=== PATIENT | female | born 1960 | race Caucasian/White ===

== ENCOUNTER 2019-01-23 10:25 | Inpatient (IN) | payer OTHER ==
--- NOTE | 2019-01-22 16:51 | R.PREADM ---
SCREENING DATE AND TIME 01/22/2019 14:19 (CAMPAIGN ASSOCIATE) ANTICIPATED REHAB ADMISSION DATE 01/24/2019 REFERRING FACILITY [facility] REFERRAL DATE AND TIME 01/22/2019 14:19 (CAMPAIGN ASSOCIATE) Previous Rehabilitation(s): No. ACUTE PACKING SUPERVISOR/DC CLOCKSMITH Gaston malik REFERRING PHYSICIAN Jorge L Benedict REHAB FACILITY [facility] CLINICAL LIAISON Jannet Roberson PHYSICIAN REVIEWER Dr. Garry Hodge M.D. [facility]# [id number] [id number] NAME HONG PICKENS ADDRESS [address] [place] [address] [facility] [address] DATE OF 1960 AGE 58 SSN# [id number] GENDER female MARITAL STATUS RACE white ADMIT FROM 02 - [facility] PRE-HOSPITAL LIVING SETTING 01 - Home (private home/apt. board/care, assisted living, half-way, transitional living) HOME TYPE AND DETAILS Type of home: single family house # of steps to enter the residence: 0 # of steps within the residence: 0 # of levels in the residence: 1 PRE-HOSPITAL LIVING WITH Family/Relatives FAMILY SUPPORT Yes PRIMARY FAMILY CONTACT NAME Colin Pickens PRIMARY FAMILY CONTACT PHONE PHONE PRIMARY FAMILY CONTACT ON ADM.? no IS PRIMARY FAMILY CONTACT AUTH. REP.? no 1ST EMERGENCY CONTACT Colin Pickens 1ST CONTACT PHONE PHONE 1ST CONTACT ON ADM. no IS 1ST CONTACT AUTH. REP.? no PHONE 2ND CONTACT ON ADM.? 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 No ANOTHER REPUBLICAN RESPONSIBLE? No PRIMARY REHAB/ACUTE DIAGNOSIS: lumbar radiculopathy ONSET DATE 01/19/2019 REHAB IMPAIRMENT CATEGORY (ASHISH): 05 Nontraumatic spinal cord injury (NTSCI) MEETS 60% rule PRIMARY DIAGNOSIS-RELATED SURGERIES: extreme lateral interbody fusion L2-L5, posterior lumbar laminectomy w/instrumentation w/pedicle scre ws L2-L5 w/SSEP, MEP, EMG monitoring w/ DR Parrish COMORBID REHAB/ACUTE DIAGNOSES: - Non-Tiered Fibromyalgia (M79.7) - N/A osteoporosis psoriatic arthritis sjogren's syndrome INTERVENTIONS: - Osteoporosis Medications Safety RISK FOR COMPLICATIONS: - Osteoporosis Falls Fractures (pathological) SUMMARY OF ACUTE HOSPITALIZATION: Pt. is a 58 yo Right-handed white female. On 01/19/2019 she was admitted to [facility] with diagnosis lumbar radiculopathy. Her impairment category is Spinal Cord Dysfunction 04 - Other Non-traumatic Spinal Cord Dysfunction (04.130). Pre-morbidly, Pt. was independent/mod-I in Locomotion, Endurance, Self-Care, Balance, Transfers Contr ol, Safety Awareness, Social Cognition, Ambulation, Communication, and Safety Awareness and Self-Care ; and she had good Sphincter Control. Currently, she has deficits of Locomotion, Balance, Safety Awareness, Ambulation, and pain limiting f unction. Pt. is now referred to [facility] for acute in-patient rehabilitation in order to maximize patient's functional independence in activities of daily living, strength, ROM, and mobi lity. Patient has realistic goal of being discharged at assistance level 6-Julia to reside at Home with Fam diana/Relatives. PAST MEDICAL HISTORY Fibromyalgia (M79.7) osteoporosis psoriatic arthritis sjogren's syndrome MEDICATION ALLERGIES: No Known Drug Allergies (NKDA) ENVIRONMENTAL ALLERGIES: - Substance Allergies None Known - Other Allergies None Known CODE STATUS: Full code WEIGHT/HEIGHT/BMI: WEIGHT 156 lbs HEIGHT 5' 2" BMI 28.5 DIET: - Diet Type Regular - Diet - Solid Texture Regular - Diet - Liquid Texture Regular - Tube Feed N/A SKIN DIAGRAM: Incision on Back; extent - small; stage - NS(Not Stageable). Treatment - Per Physician's Orders. REVIEW OF SYSTEMS: - Gen Alert and awake Lying in bed No apparent distress Oriented to: person, time, and place - CVS RRR VITAL SIGNS Temperature: 97.3 F SBP/DBP: 117/75 Pulse: 111 Resp: 20 Vital signs stable, afebrile MEDICATIONS/TREATMENT: Other- See attached MAR (Medication Administration Record). CURRENT SPHINCTER CONTROL: Pre-hospital bladder status: continent # of bladder accidents in the last 7 days prior to screenin Pre-hospital bowel status: continent # of bowel accidents in the last 7 days prior to screenin Last Bowel Movement Date: 01/22/2019 CURRENT LOCOMOTION STATUS: distance traveled in wheelchair 0 feet distance walked 20 feet DETAILED CURRENT FUNCTIONAL STATUS: - Bladder accident frequency: Ind - No accidents in the past 7 days - Bowel accident frequency: Ind - No accidents in the past 7 days - Walking score based on distance walked: 1(<=50ft) - Wheelchair score based on distance traveled: 1(<=50ft) QI SCORES: - Self-Care A. Eating 06-Independent B. Oral hygiene 05-Setup or clean-up assistance C. Toileting hygiene 05-Setup or clean-up assistance E. Shower/bathe self 88-Not attempted due to medical condition or safety concerns F. Upper body dressing 04-Supervision or touching assistance G. Lower body dressing 03-Partial/moderate assistance H. Putting on/taking off footwear 88-Not attempted due to medical condition or safety concerns - Mobility A. Roll left and right 06-Independent B. Sit to lying 04-Supervision or touching assistance C. Lying to sitting on side of bed 05-Setup or clean-up assistance D. Sit to stand 04-Supervision or touching assistance E. Chair/lvy-fl-xvjjl transfer 04-Supervision or touching assistance F. Toilet transfer 04-Supervision or touching assistance G. Car transfer 88-Not attempted due to medical condition or safety concerns I. Walk 10 feet 04-Supervision or touching assistance J. Walk 50 feet with two turns 88-Not attempted due to medical condition or safety concerns K. Walk 150 feet 88-Not attempted due to medical condition or safety concerns L. Walking 10 feet on uneven surfaces 88-Not attempted due to medical condition or safety concerns M. 1 step (curb) 88-Not attempted due to medical condition or safety concerns N. 4 steps 88-Not attempted due to medical condition or safety concerns O. 12 steps 88-Not attempted due to medical condition or safety concerns P. Picking up object 88-Not attempted due to medical condition or safety concerns R. Wheel 50 feet with two turns 88-Not attempted due to medical condition or safety concerns S. Wheel 150 feet 88-Not attempted due to medical condition or safety concerns - Bladder and Bowel Bladder continence 4-Always incontinent Bowel continence 3-Always incontinent - Endurance Fair - Balance Fair - Safety Awareness Fair CURRENT [facility]. DEFICITS: Endurance, Balance, Safety Awareness, Self-Care, and Mobility CURRENT / PREVIOUS ASSISTIVE DEVICES: 3-in-1 Commode BSC Hospital Bed Raised Toilet Rolling Walker Shower Chair Wheelchair HISTORY OF FALLS. HAS THE PATIENT HAD TWO OR MORE FALLS IN THE PAST YEAR OR ANY FALL WITH INJURY IN T HE PAST YEAR?: No PRIOR SURGERY. DID THE PATIENT HAVE MAJOR SURGERY DURING THE 100 DAYS PRIOR TO ADMISSION?: No THERAPY NOTES FROM ACUTE CARE: Attached. SPECIAL NEEDS: - Safety Concerns Skin breakdown precautions needed due to skin breakdown risk PATIENT NEEDS ACTIVE AND ONGOING THERAPEUTIC INTERVENTION OF MULTIPLE THERAPY DISCIPLINES, INCLUDING: - Orthotics/Prosthetics Orthotic Evaluation. Splinting/Casting. - Dietary and Nutrition Adequate Nutrition. Nutritional Education. Nutritional Supplements. PATIENT NEEDS CLOSE MEDICAL SUPERVISION BY A REHABILITATION PHYSICIAN FOR: Coordination of Treatment Team Medical and Co-Morbidity Management Wound Care PATIENT REQUIRES 24X7 REHAB NURSING FOR MEDICAL AND FUNCTIONAL MGT. OF THE FOLLOWING DEFICITS: Disease Management Medication Management Patient/Family Education Providing Safe Environment Skin Integrity PATIENT REQUIRES INTENSIVE, COORDINATED INTERDISCIPLINARY APPROACH TO REHAB: Arranging Home Equipment/Services Discharge Planning Family Intervention/Training Agile Qa Tester/Case Management PATIENT REHAB POTENTIAL: Candi PICKENS is able and expected to receive 3 hours of individualized therapy daily on at least 5 o f every 7 days Candi PICKENS's prognosis for significant practical improvement within a reasonable period of time ap pears Good Expected level of measurable improvement will be of a practical value to Candi PICKENS's functional c apacity or adaptations to impairments Has a viable Discharge Plan Medically appropriate; condition is sufficiently stable to participate in intensive rehab program DISCHARGE PLAN: - Estimated Length of Stay (days) 16. - Consensus on plan Discharge plan has been discussed with primary caregiver. Patient/Family is in agreement with the darius n. Primary caregiver is in agreement with the plan. - Patient/Family Goals Return home with assistance. - Planned Living Setting Upon Discharge Home, to live with Family/Relatives. RECOMMENDED CARE LEVEL: IRF RECOMMENDATION DETAILS: Recommended Admission to Comprehensive Rehabilitation Program to Increase Functional Forsan SCREENER'S COMPLETENESS CONFIRMATION: - Screening Confirmation The patient data collection on this preadmission screening form is finished PHYSICIANS REVIEW AND ADMISSION DETERMINATION Admit - Based on my review of the Pre-Admission Screening results, in my medical judgment and experie nce, I concur with the findings and recommend admission to [facility], as this patient requires an IRF level of care. SIGNATURE PANEL: Clinical Liaison - [electronically] signed by Alisa Bishop on 01/22/2019 at 14:57 (CAMPAIGN ASSOCIATE) Clinical Liaison - [electronically] signed by Jannet Roberson on 01/22/2019 at 15:29 (CAMPAIGN ASSOCIATE) Physician Reviewer - [electronically] signed by Dr. Garry Hodge M.D. on 01/22/2019 at 16:49 (CAMPAIGN ASSOCIATE )
--- OUTSIDE RECORDS SUMMARY | 2019-01-23 17:36 | XMS REPORT ---
:1960 [facility] [address] [place] [address] Dr. Braxton[address] [place] [id number] Care Team Providers Name Role Phone Unavailable Unavailable Unavailable Problems This patient has no known problems. Allergies, Adverse Reactions, Alerts This patient has no known allergies or adverse reactions. Medications This patient has no known medications.
--- OUTSIDE RECORDS SUMMARY | 2019-01-23 17:37 | XMS REPORT | Summary of Care ---
:1960 Author Organization [facility] Address [address] [place] [id number] Care Team Providers Name Role Phone Yue Haider Primary Care Provider Reason for Referral Radiology Services (Routine) Status Reason Specialty Diagnoses / Referred By Referred To Procedures Contact Contact New Request Diagnostic Diagnoses Left hand pain Reagan Norton Radiology Procedures XR HAND <3 VW CIERRA Oconnor MD [address] [place] [address] [place] [address] Reason for Visit Reason Comments Hand Pain Left hand pain Encounter Details Date Type Department Care Team Description 10/17/2018 Office Visit [facility] Orthopaedic Reagan Norton Left hand pain Surgery- Rhea Oconnor MD (Primary Dx) [address] [facility], [address] [place] [address] [place] [phone] Allergies Active Allergy Reactions Severity Noted Date Comments Morphine Rash Low 01/09/2011 Morphine Sulfate Rash 01/09/2011 documented as of this encounter (statuses as of 10/17/2018) Medications Medication Sig Dispensed Refills Start Date End Date Status azaTHIOprine (IMURAN) 50 0 12/23/2014 Active mg tablet baclofen (LIORESAL) 10 mg 0 01/03/2015 Active tablet furosemide (LASIX) 20 mg 0 11/01/2014 Active tablet gabapentin (NEURONTIN) 0 01/03/2015 Active 300 mg capsule hydroxychloroquine 0 12/25/2014 Active (PLAQUENIL) 200 mg tablet predniSONE (DELTASONE) 5 0 11/13/2014 Active mg tablet cevimeline (EVOXAC) 30 mg Take 30 mg by 0 09/29/2015 Active capsule mouth. DULoxetine (CYMBALTA) 60 0 08/25/2015 Active mg capsule naproxen sodium (ALEVE) Take by mouth. 0 Active 220 mg capsule CHOLECALCIFEROL, VITAMIN Take by mouth. 0 Active D3, (D-3-5 ORAL) GINKGO BILOBA ORAL Take by mouth. 0 Active GLUC PITTS/CHONDRO PITTS A/VIT Take by mouth. 0 Active C/MN (GLUCOSAMINE CHONDROITIN MAXSTR ORAL) clonazePAM 0.5 mg tablet Take 0.5 mg by 0 Active mouth 3 (three) times daily. modafinil 200 mg tablet Take 200 mg by 0 Active mouth. APPLE CIDER VINEGAR ORAL Take by mouth. 0 Active MULTIVITAMIN ORAL Take by mouth. 0 Active OMEGA-3 FATTY ACIDS/FISH Take by mouth. 0 Active OIL (OMEGA 3 FISH OIL ORAL) HYALURONATE SODIUM Take by mouth. 0 Active (HYALURONIC ACID, SODIUM, ORAL) buprenorphine Place under 0 Active HCl/naloxone HCl the tongue. (SUBOXONE SL) azathioprine (IMURAN Take by mouth. 0 Active ORAL) Diclofenac Sodium Apply the gel 100 g 1 07/03/2018 Active (VOLTAREN) 1 % (4 g) to the gelIndications: Posterior affected knee tibial tendon dysfunction 4 times daily. (PTTD) of both lower Do not apply extremities more than 16 g daily to any single joint of the lower extremities. Estradiol (VAGIFEM) 10 1 tablet q HS x 18 tablet 3 07/30/2018 Active mcg tablet 2 weeks, the twice weekly after that documented as of this encounter (statuses as of 10/17/2018) Active Problems Problem Noted Date Vaginal atrophy 10/04/2015 Menopausal vaginal dryness 10/04/2015 Dyspareunia 10/04/2015 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 Connective tissue disorder 01/07/2015 Fibromyalgia 01/07/2015 Shoulder pain 01/07/2015 documented as of this encounter (statuses as of 10/17/2018) Social History Tobacco Use Types Packs/Day Years Used Date Never Smoker Smokeless Tobacco: Never Used Alcohol Use Drinks/Week oz/Week Comments No 0 Standard drinks or equivalent 0.0 Sex Assigned at Date Recorded Not on file Job Start Date Occupation Industry Not on file Not on file Not on file Travel History Travel Start Travel End No recent travel history available. documented as of this encounter Last Filed Vital Signs Vital Sign Reading Time Taken Comments Blood Pressure 144/94 10/17/2018 10:23 AM CDT Pulse 112 10/17/2018 10:23 AM CDT Temperature - - Respiratory Rate 18 10/17/2018 10:23 AM CDT Oxygen Saturation - - Inhaled Oxygen Concentration - - Weight 69.9 kg (154 lb) 10/17/2018 10:23 AM CDT Height 157.5 cm (5' 2") 10/17/2018 10:23 AM CDT Body Mass Index 28.17 10/17/2018 10:23 AM CDT documented in this encounter Progress Notes Reagan Norton MD - 10/17/2018 10:15 AM CDT Kim Pickens is a 58 year old female Chief Complaint Patient presents with Hand Pain Left hand pain Vitals: 10/17/18 1023 BP: (!) 144/94 BP Location: Left arm Patient Position: Sitting BP CUFF SIZE: Adult Medium Pulse: 112 Resp: 18 Weight: 69.9 kg (154 lb) Height: 62" (157.5 cm) [address] Incident occurred: about 3 weeks ago Incident location: at home Injury mechanism: patient did not fall, patient states she put a lot of weight on her hand Pain location: left hand DME status: brace Radiology status: none All Vitals taken, allergies and all medications reviewed, fall risk assessed. Pain level 6/10. MARIA DOLORES CARDOSO MA 10/17/2018 10:27 AM Kim Pickens is a 58 year old female. Hand Pain The incident occurred more than 1 week ago. The incident occurred at home. Injury mechanism: lost balance when leaning down to sit on a couch. The pain is present in the left hand. The quality of the pain is described as aching. The pain is at a severity of 6/10. The pain is moderate. The pain has been intermittent since the incident. The symptoms are aggravated by movement and palpation. She has tried rest for the symptoms. The treatment provided mild relief. Allergies Kim is allergic to morphine sulfate and morphine. Medications Outpatient Medications Prior to Visit Medication Sig Dispense Refill Estradiol (VAGIFEM) 10 mcg tablet 1 tablet q HS x 2 weeks, the twice weekly after that 18 tablet3 Diclofenac Sodium (VOLTAREN) 1 % gel Apply the gel (4 g) to the affected knee 4 times daily. Donot apply more than 16 g daily to any single joint of the lower extremities. 100 g 1 azathioprine (IMURAN ORAL) Take by mouth. buprenorphine HCl/naloxone HCl (SUBOXONE SL) Place under the tongue. APPLE CIDER VINEGAR ORAL Take by mouth. clonazePAM 0.5 mg tablet Take 0.5 mg by mouth 3 (three) times daily. HYALURONATE SODIUM (HYALURONIC ACID, SODIUM, ORAL) Take by mouth. modafinil 200 mg tablet Take 200 mg by mouth. MULTIVITAMIN ORAL Take by mouth. OMEGA-3 FATTY ACIDS/FISH OIL (OMEGA 3 FISH OIL ORAL) Take by mouth. cevimeline (EVOXAC) 30 mg capsule Take 30 mg by mouth. CHOLECALCIFEROL, VITAMIN D3, (D-3-5 ORAL) Take by mouth. DULoxetine (CYMBALTA) 60 mg capsule GINKGO BILOBA ORAL Take by mouth. GLUC PITTS/CHONDRO PITTS A/VIT C/MN (GLUCOSAMINE CHONDROITIN MAXSTR ORAL) Take by mouth. naproxen sodium (ALEVE) 220 mg capsule Take by mouth. azaTHIOprine (IMURAN) 50 mg tablet baclofen (LIORESAL) 10 mg tablet furosemide (LASIX) 20 mg tablet gabapentin (NEURONTIN) 300 mg capsule hydroxychloroquine (PLAQUENIL) 200 mg tablet predniSONE (DELTASONE) 5 mg tablet No facility-administered medications prior to visit. Histories Past Medical History: Diagnosis Date Anxiety Autoimmune disorder Depression Fibromyalgia Multilevel degenerative disc disease Psoriatic arthritis RA (rheumatoid arthritis) Sjogren's disease Undifferentiated connective tissue disease 2013 Past Surgical History: Procedure Laterality Date ABDOMEN SURGERY PROC UNLISTED APPENDECTOMY SECTION CHOLECYSTECTOMY COLONOSCOPY JOINT SURGERY bilateral knee REMOVAL GALLBLADDER SPINE SURGERY Social History Socioeconomic History Marital status: Spouse name: Ricardo Number of children: 2 Years of education: 12 Highest education level: Not on file Occupational History Occupation: Disabled Social Needs Financial resource strain: Not on file Food insecurity: Worry: Not on file Inability: Not on file Transportation needs: Medical: Not on file Non-medical: Not on file Tobacco Use Smoking status: Never Smoker Smokeless tobacco: Never Used Substance and Sexual Activity Alcohol use: No Alcohol/week: 0.0 oz Drug use: No Sexual activity: Yes Partners: Male Comment: Vaginal Pain and discomfort Lifestyle Physical activity: Days per week: Not on file Minutes per session: Not on file Stress: Not on file Relationships Social connections: Talks on phone: Not on file Gets together: Not on file Attends jewish service: Not on file Active member of club or organization: Not on file Attends meetings of clubs or organizations: Not on file Relationship status: Not on file Intimate partner violence: Fear of current or ex partner: Not on file Emotionally abused: Not on file Physically abused: Not on file Forced sexual activity: Not on file Other Topics Concern Service Not Asked Blood Transfusions Not Asked Caffeine Concern Not Asked Occupational Exposure Not Asked Hobby Hazards Not Asked Sleep Concern Not Asked Stress Concern Not Asked Weight Concern Not Asked Special Diet Not Asked Back Care Not Asked Exercise Not Asked Bike Helmet Not Asked Seat Belt Yes Self-Exams Yes Social History Narrative Denies domestic or physical violence within the home Roman Catholic Preference: Yarsani Family History Problem Relation Age of Onset Stroke Mother Heart Father Arthritis NoFHx Asthma NoFHx defects NoFHx Breast Cancer NoFHx Colon Cancer NoFHx Ovarian Cancer NoFHx Uterine Cancer NoFHx Cancer NoFHx Depression NoFHx Diabetes NoFHx Genetic NoFHx High cholesterol NoFHx Hypertension NoFHx Mental retardation NoFHx Neurological NoFHx Osteoporosis NoFHx Psychiatry NoFHx Other - see comments NoFHx Review of Systems Constitutional: Negative. HENT: Negative. Eyes: Negative. Respiratory: Negative. Breasts: Negative. Cardiovascular: Negative. Gastrointestinal: Negative. Genitourinary: Negative. Musculoskeletal: Positive for joint swelling. Skin: Negative. Neurological: Negative. Psychiatric/Behavioral: Negative. Endocrine: Endocrine negative Vital Signs BP (!) 144/94 (BP Location: Left arm, Patient Position: Sitting, BP CUFF SIZE: Adult Medium) | Pulse 112 | Resp 18 | Ht 62" (157.5 cm) | Wt 69.9 kg (154 lb ) | BMI 28.17 kg/m Physical Exam Musculoskeletal: Right hand: She exhibits decreased range of motion, tenderness and bony tenderness. Hands: General: Well-developed well-nourished oriented to person place and time HEENT normocephalic atraumatic atraumatic pupils equal round reactive to light extraocular muscles intact Cervical thoracic and lumbar spine without focal deficit normal kyphosis and lordosis Chest clear to auscultation and percussion Cardiovascular regular rate and rhythm without gallop rub or murmur soft without organomegaly Normal bowel sounds Neurologic: Focal myotome or dermatomal deficits Vascular: Intact symmetrical bilateral upper and lower extremities Skin without stasis varicosities or breakdown Extremities without cyanosis clubbing or edema Lymphatics no peripheral lymphedema Psych normal mood and affect. Neurovascular function is intact. To include brisk capillary refill warm pink skin active motor function and sensory function intact. Nursing note and vitals reviewed. Assessment/Plan Diagnosis left hand pain Plan: No fractures were noted. Given a thumb spica splint. documented in this encounter Plan of Treatment Date Type Specialty Care Team Description 07/06/2019 Office Visit Obstetrics & Gynecology Mary Jo Schwartz MD [address] [place] [address] [place] [address] [phone] Health Maintenance Due Date Last Done Comments HEPATITIS C (HCV) SCREEN 1960 DTaP,Tdap,and Td Vaccines (1 - 07/02/1979 Tdap) MAMMOGRAM 2000 COLONOSCOPY 2010 Zoster Recombinant Vaccine 2010 (SHINGRIX) (1 of 2) INFLUENZA VACCINE (#1) 2018 PAP SMEAR 06/18/2020 06/18/2017 PNEUMOCOCCAL 0-64 YEARS COMBINED Aged Out No longer eligible based on SERIES patient's age to complete this topic documented as of this encounter Results XR HAND <3 VW LEFT (10/17/2018 10:32 AM CDT) Specimen Narrative Performed At No fractures or dislocations PACS Performing Organization Address City/State/Zipcode Phone Number PACS documented in this encounter Visit Diagnoses Diagnosis Left hand pain - Primary Pain in limb documented in this encounter Insurance Payer Benefit Plan / Subscriber ID Effective Dates Phone Address Type Group MEDICARE MEDICARE PART xxxxxxxxxxx 2011-Sandra [phone] Medicare [id number] [place] [id number] documented as of this encounter
--- OUTSIDE RECORDS SUMMARY | 2019-01-23 17:37 | XMS REPORT | Summary of Care ---
:1960 Author Organization [facility] - [facility] Address [address] [place] [address] Care Team Providers Name Role Phone Vitaly Yue Primary Care Provider Encounter Details Date Type Department Care Team Description 09/30/2018 Orders Only [facility] Doctor Unassigned, [address] [facility] [place] [address] [address] [id number] Allergies Active Allergy Reactions Severity Noted Date Comments Morphine Rash 01/07/2015 Morphine Sulfate Rash 01/09/2011 documented as of this encounter (statuses as of 09/30/2018) Medications Medication Sig Dispensed Refills Start Date [...] as of this encounter (statuses as of 09/30/2018) Active Problems Problem Noted Date Vaginal atrophy 10/04/2015 Menopausal vaginal dryness 10/04/2015 Dyspareunia 10/04/2015 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 Connective tissue disorder 01/07/2015 Fibromyalgia 01/07/2015 Shoulder pain 01/07/2015 documented as of this encounter (statuses as of 09/30/2018) Social History Tobacco Use Types Packs/Day Years [...] of this encounter Last Filed Vital Signs Not on filedocumented in this encounter Plan of Treatment Date Type Specialty Care Team Description 09/30/2018 Cardiology Consultant Visit Clinical Medical 1, [facility] Lab Laboratory 07/06/2019 Office Visit Obstetrics & Gynecology Mary Jo Schwartz MD [address] [place] [address] [place] [address] [phone] Health Maintenance Due Date Last Done Comments HEPATITIS C (HCV) SCREEN 1960 DTaP,Tdap,and Td Vaccines (1 - 07/02/1979 Tdap) MAMMOGRAM 2000 COLONOSCOPY 2010 Zoster Recombinant Vaccine 2010 (SHINGRIX) (1 of 2) INFLUENZA VACCINE 10/19/2018 PAP SMEAR 06/18/2020 06/18/2017 PNEUMOCOCCAL 0-64 YEARS COMBINED Aged Out No longer eligible based on SERIES patient's age to complete this topic documented as of this encounter Procedures Procedure Name Priority Date/Time Associated Diagnosis Comments ASSIGNMENT OF BENEFITS Routine 09/30/2018 10:10 AM CDT documented in this encounter Results Not on filedocumented in this encounter Insurance Payer Benefit Plan / Subscriber ID Effective Dates Phone Address Type Group MEDICARE MEDICARE PART xxxxxxxxxxx 2011-Sandra [phone] [address] Medicare A & B t 2 [id number] [place] [phone] documented as of this encounter
--- OUTSIDE RECORDS SUMMARY | 2019-01-23 17:37 | XMS REPORT | Summary of Care ---
:1960 Author Organization [facility] Address [address] [place] [address] Care Team Providers Name Role Phone Yue Haider Primary Care Provider Reason for Visit Radiology Services (Routine) Status Reason Specialty Diagnoses / Referred By Referred To Procedures Contact Contact New Request Diagnostic Diagnoses Left hand pain Reagan Norton Radiology Procedures XR HAND <3 VW LEFT MD Elvin [address] [place] [address] Encounter Details Date Type Department Care Team Description 10/17/2018 Hospital Encounter [facility] - Radiology [address] [place] [address] [place] [phone] [address] Allergies Active Allergy Reactions Severity Noted Date Comments Morphine Rash Low 01/09/2011 Morphine Sulfate Rash 01/09/2011 documented as of this encounter (statuses as of 10/18/2018) Medications Medication Sig Dispensed Refills Start Date [...] as of this encounter (statuses as of 10/18/2018) Active Problems Problem Noted Date Vaginal atrophy 10/04/2015 Menopausal vaginal dryness 10/04/2015 Dyspareunia 10/04/2015 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 [facility] [place] [address] [phone] Health Maintenance Due Date Last Done Comments [...] Procedure Name Priority Date/Time Associated Diagnosis Comments XR HAND <3 VW LEFT Routine 10/17/2018 10:32 AM Left hand pain Results for this CDT procedure are in the results section. documented in this encounter Results XR HAND <3 VW LEFT (10/17/2018 10:32 AM CDT) Specimen Narrative Performed At No fractures or dislocations PACS Performing Organization Address City/State/Zipnjde Phone Number PACS documented in this encounter Visit Diagnoses Diagnosis Left hand pain Pain in limb documented in this encounter Insurance Payer Benefit Plan / Subscriber ID Effective Dates Phone Address Type Group MEDICARE MEDICARE PART xxxxxxxxxxx 2011-Sandra [phone] [address] [facility] Medicare A & B t 2 [id number] [place] [id number] documented as of this encounter
--- OUTSIDE RECORDS SUMMARY | 2019-01-23 17:37 | XMS REPORT | Summary of Care ---
:1960 Author Organization [facility] Address [address] [place] [address] Care Team Providers Name Role Phone Yue Haider Primary Care Provider Reason for Visit Reason Comments LAB WORK Auth/Cert Status Reason Specialty Diagnoses / Referred By Referred To Procedures Contact Contact Clinical Medical Diagnoses Low back pain Low back pain [M54.5] [facility] Lab Laboratory Procedures CBC,PT/PTT,BLEEDING TIME [address] [place] [address] Encounter Details Date Type Department Care Team Description 09/30/2018 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 [address] [phone] Name Type Priority Associated Diagnoses Date/Time CBC WITH DIFF LAB Routine Preop testing 09/30/2018 10:35 AM CDT PROTHROMBIN TIME / INR LAB Routine Preop testing 09/30/2018 10:35 AM CDT aPTT LAB Routine Preop testing 09/30/2018 10:35 AM CDT ADC OR CLC ONLY - PLATELET LAB Routine Preop testing 09/30/2018 10:35 AM CDT FUNCTION TEST CBC WITH DIFFERENTIAL LAB Routine Preop testing 09/30/2018 10:35 AM CDT Health Maintenance Due Date Last Done Comments HEPATITIS C (HCV) SCREEN 1960 DTaP,Tdap,and Td Vaccines (1 - 07/02/1979 Tdap) MAMMOGRAM 2000 COLONOSCOPY 2010 Zoster Recombinant Vaccine 2010 (SHINGRIX) (1 of 2) INFLUENZA VACCINE 10/19/2018 PAP SMEAR 06/18/2020 06/18/2017 PNEUMOCOCCAL 0-64 YEARS COMBINED Aged Out No longer eligible based on SERIES patient's age to complete this topic documented as of this encounter Results Not on filedocumented in this encounter Visit Diagnoses Diagnosis Preop testing - Primary Preoperative examination, unspecified documented in this encounter Insurance Payer Benefit Plan / Subscriber ID Effective Dates Phone Address Type Group MEDICARE MEDICARE PART xxxxxxxxxxx 2011-Sandra [phone] [address] Medicare A & B t 2 [id number] [place] [phone] documented as of this encounter
--- OUTSIDE RECORDS SUMMARY | 2019-01-23 17:37 | XMS REPORT | Summary of Care ---
:1960 Author Organization [facility] - [facility] Address [address] [place] [address] Care Team Providers Name Role Phone Yue Haider Primary Care Provider Reason for Referral Radiology Services (Routine) Status Reason Specialty Diagnoses / Referred By Referred To Procedures Contact Contact New Request Diagnostic Diagnoses Left hand pain [facility] Radiology Procedures XR HAND <3 VW CIERRA Oconnor MD [address] [place] [address] [place] [address] Reason for Visit Reason Comments Hand Pain Left hand pain Encounter Details Date Type Department Care Team Description 10/17/2018 Office Visit [facility] Orthopaedic Reagan Norton Left hand pain Surgery- Rhea Oconnor MD (Primary Dx) [address] [facility], [address] [place] [address] [place], [place] [phone] [address] Allergies Active Allergy Reactions Severity Noted [...] kg (154 lb) Height: 62" (157.5 cm) [address] Incident occurred: about 3 weeks ago [...] file Gets together: Not on file Attends islam service: Not on file Active member of [...] domestic or physical violence within the home Alevism Preference: Roman Catholic Family History Problem Relation Age of Onset [...] Obstetrics & Gynecology Mary Jo Schwartz MD [address] [place] [address] [place] [address] [phone] Health Maintenance Due Date Last Done Comments [...] Type Group MEDICARE MEDICARE PART xxxxxxxxxxx 2011-Sandra [phone] Medicare A & B t 2 [id number] [place] [id number] documented as of this encounter
--- OUTSIDE RECORDS SUMMARY | 2019-01-23 17:38 | XMS REPORT | Summary of Care ---
:1960 Author Organization [facility] Address [address] [place] [address] Care Team Providers Name Role Phone Yue Haider Primary Care Provider Reason for Referral Radiology Services (Routine) Status Reason Specialty Diagnoses / Referred By Referred To Procedures Contact Contact New Request Diagnostic Diagnoses Left wrist pain Omar Armstrong, Radiology Procedures XR WRIST <3 VW LEFT PAC [address] [place] [address] [place] [address] Reason for Visit Reason Comments Follow-up Wrist Pain left wrist pain Encounter Details Date Type Department Care Team Description 11/06/2018 Office Visit [facility] Orthopaedic Omar Armstrong, Left wrist pain Surgery- [place] PAC (Primary Dx) [address], [address] [place] [address] [place] [address] [place], [place] [phone] Allergies Active Allergy Reactions Severity Noted Date Comments Morphine Rash Low 01/09/2011 Morphine Sulfate Rash 01/09/2011 documented as of this encounter (statuses as of 11/06/2018) Medications Medication Sig Dispensed Refills Start Date [...] as of this encounter (statuses as of 11/06/2018) Active Problems Problem Noted Date Vaginal atrophy 10/04/2015 Menopausal vaginal dryness 10/04/2015 Dyspareunia 10/04/2015 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 Connective tissue disorder 01/07/2015 Fibromyalgia 01/07/2015 Shoulder pain 01/07/2015 documented as of this encounter (statuses as of 11/06/2018) Social History Tobacco Use Types Packs/Day Years [...] Sign Reading Time Taken Comments Blood Pressure 126/73 11/06/2018 1:57 PM CDT Pulse 109 11/06/2018 1:57 PM CDT Temperature - - Respiratory Rate - - Oxygen Saturation - - Inhaled Oxygen Concentration - - Weight 69.9 kg (154 lb) 11/06/2018 1:57 PM CDT Height 157.5 cm (5' 2") 11/06/2018 1:57 PM CDT Body Mass Index 28.17 11/06/2018 1:57 PM CDT documented in this encounter Progress Notes Omar Armstrong, PAC - 11/06/2018 1:30 PM CDT Cc: Chief Complaint Patient presents with Follow-up Wrist Pain left wrist pain Patient here for left wrist pain - onset 2 weeks ago. Arrived wearing wrist brace. Previously seen for hand pain but couldn't figure out where the pain was located. Now it is in her wrist. Luisa Easonradhames11/06/2018 2:01 PM Kim Pickens is a 58 year old female. Follow-up on left wrist pain arrived wearing her brace Hand Pain The incident occurred more than [...] BILOBA ORAL Take by mouth. GLUC PITTS/CHONDRO PTITS A/VIT C/MN (GLUCOSAMINE CHONDROITIN MAXSTR ORAL) Take [...] file Gets together: Not on file Attends faith service: Not on file Active member of [...] domestic or physical violence within the home Cheondoism Preference: Confucianist Family History Problem Relation Age of Onset [...] Negative. Endocrine: Endocrine negative Vital Signs BP 126/73 | Pulse 109 | Ht 62" (157.5 cm) | Wt 69.9 kg (154 lb) | BMI 28.17 kg/m Physical Exam Musculoskeletal: Physical Exam Constitutional: oriented to person, place, and time. appears well-developed and well-nourished. HENT: Head: Normocephalic and atraumatic. Right Ear: External ear normal. Left Ear: External ear normal. Eyes: Conjunctivae are normal. Neck: Normal range of motion. No strabismus Neck supple. Cardiovascular: Normal rate and regular rhythm. Pulmonary/Chest: Normal respiratory rate equal chest rise and fall in no apparent distress Abdominal: Abdomen nondistended nontender Neurological: alert and oriented to person, place, and time. No asymmetry Skin: Skin is warm and dry. Psychiatric: normal mood and affect. behavior is normal. Judgment and thought content normal. Nursing note and vitals reviewed. She has snuffbox tenderness in her left wrist, her ulnar styloid is not specifically tender. Assessment/Plan 1. Left wrist pain XR WRIST <3 VW LEFT She has snuffbox tenderness there is no visible fracture on the scaphoid but she should remain in her thumb spica splint for another month we can reexamine then documented in this encounter Plan of Treatment Date Type Specialty Care Team Description 07/06/2019 Office Visit Obstetrics & Gynecology Mary Jo Schwartz MD [address] [place] [address] [place] [address] [phone] Health Maintenance Due Date Last Done Comments [...] documented as of this encounter Results XR WRIST <3 VW LEFT (11/06/2018 1:58 PM CDT) Specimen Narrative Performed At There is a ulnar styloid fracture PACS Performing Organization Address City/State/Zipcode Phone Number PACS documented in this encounter Visit Diagnoses Diagnosis Left wrist pain - Primary Pain in joint, forearm documented in this encounter Insurance Payer Benefit Plan / Subscriber ID Effective Dates Phone Address Type Group MEDICARE MEDICARE PART xxxxxxxxxxx 2011-Sandra [phone] [address] Medicare A & B t 2 [id number] [place] [id number] documented as of this encounter
--- OUTSIDE RECORDS SUMMARY | 2019-01-23 17:38 | XMS REPORT | Summary of Care ---
:1960 Author Organization [facility] Address [address] [place] [address] Care Team Providers Name Role Phone Yue Haider Primary Care Provider Reason for Referral MRI/CAT Scan (Routine) Status Reason Specialty Diagnoses / Referred By Referred To Procedures Contact Contact Closed Diagnostic Diagnoses History of fusion of cervical spine Jak, Jorge L Radiology Procedures CT LUMBAR SPINE WO CONTRAST [address] [place] [place] [address] MRI/CAT Scan (Routine) Status Reason Specialty Diagnoses / Referred By Referred To Procedures Contact Contact Closed Diagnostic Diagnoses History of fusion of cervical spine Jak, Jorge L Radiology Procedures CT LUMBAR SPINE WO CONTRAST [address] [place] [address] Reason for Visit MRI/CAT Scan (Routine) Status Reason Specialty Diagnoses / Referred By Referred To Procedures Contact Contact Closed Diagnostic Diagnoses History of fusion of cervical spine Jak, Jorge L Radiology Procedures CT LUMBAR SPINE WO CONTRAST [address] [place] [address] Encounter Details Date Type Department Care Team Description 10/30/2018 Hospital Encounter [facility] Radiology Arrived [place] Computed [address] [facility] Tom[place] [address] [address] [facility] [place] [phone] Allergies Active Allergy Reactions Severity Noted Date Comments Morphine Rash Low 01/09/2011 Morphine Sulfate Rash 01/09/2011 documented as of this encounter (statuses as of 10/31/2018) Medications Medication Sig Dispensed Refills Start Date [...] as of this encounter (statuses as of 10/31/2018) Active Problems Problem Noted Date Vaginal atrophy 10/04/2015 Menopausal vaginal dryness 10/04/2015 Dyspareunia 10/04/2015 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 [address] [phone] Health Maintenance Due Date Last Done Comments [...] Procedure Name Priority Date/Time Associated Diagnosis Comments CT LUMBAR SPINE WO Routine 10/30/2018 3:02 PM History of fusion of Results for this CONTRAST CDT cervical spine procedure are in the results section. documented in this encounter Results CT LUMBAR SPINE WO CONTRAST (10/30/2018 3:02 PM CDT) Specimen Narrative Performed At HISTORY: Lumbar spine fusion, follow-up. PACS/VR/DOSE TECHNIQUE: 64-mutidetector Spiral CT lumbar spine was obtained the patient on the back. Subsequently multiple sagittal and coronal reformations were obtained. FINDINGS: Five lumbar vertebrae assumed and the levels are accordingly labeled. No compression fracture or aggressive bone lesions. No prior lumbar spine study is available for comparison. Incidental note of 2 cm size lesion in the left adrenal gland with fatty tissue consistent with benign nonfunctioning adenoma. T12-L1: Unremarkable. L1-L2: Minimal annular bulge. Bilateral facet arthritis with calcified ligamentum flavum minimally encroaching into the right side of the spinal canal. L2-L3: Old fracture of L3 which has lost more than 50% of its height with retropulsion of posterior superior fracture margin into the spinal canal causing spinal stenosis with moderate thecal sac compression. Grade 1 retrolisthesis of L3 over L2 noted. Severe disc degeneration with severe narrowing of the disc space, vacuum phenomenon in the disc material, [id number] contact with endplate sclerosis noted. Additional vertical fracture noted through the right upper portion of L2 adjacent to the pedicle base and oblique fractures seen extending from left pedicle toward the transverse process. Slightly fracture noted in the left transverse process of L2. Thickened and partially calcified ligamentum flavum and bilateral facet arthritis noted causing additional encroachment into the spinal canal. Foraminal encroachment also noted on both sides by partially calcified prominent bulging disc and facet disease. L3-L4: Grade 1 spondylolisthesis of L3 over L4, disc degeneration with narrowing of the disc space by more than 90%, bone on bone contact, endplate sclerosis, vacuum phenomenon in the disc material, spinal stenosis with moderate thecal sac compression. Bilateral foraminal stenosis also noted. Bilateral facet arthritis noted with slightly thickened ligaments causing additional spinal canal encroachment. L4-L5: Disc degeneration with narrowing of the disc space by more than 80%, endplate sclerosis, endplate cystic changes in the upper L5, vacuum phenomena and in the disc material, diffuse bulging of the disc and mild facet arthritis is noted. Mild thecal sac compression and left foraminal stenosis noted. L5-S1: Disc space is slightly narrowed, minimal retrolisthesis of L5 over S1 noted with prominent bulging of the disc touching both nerve roots, left more than right. Small osteophytes/bulging disc encroaching into the left neural foramen without significant foraminal narrowing. CONCLUSIONS: 1. Mid lumbar levoscoliosis/kyphosis secondary to old fracture of L3 with loss of more than 50% of the height with grade 1 retrolisthesis of L3 over L2, grade 1 spondylolisthesis of L3 over L4. Spinal stenosis noted at both L2-L3 and L3-L4 due to retropulsion of posterior upper margin of L3 and L4 into spinal canal along with prominent/partially calcified bulging disc and thickened ligamentum flavum secondary to facet arthritis. Additional fractures seen involving the right posterior upper L2 closed to the pedicle, oblique fracture standing through the pedicle into left transverse process and slightly fracture in the left transverse processes of L2. 2. Moderate to severe degenerative disc disease at L2-L3, L3-L4, L4-L5. Procedure Note [facility], Radiant Results Inft User - 10/30/2018 3:32 PM CDT HISTORY: Lumbar spine fusion, follow-up. TECHNIQUE: 64-mutidetector Spiral CT lumbar spine was obtained the patient on the back. Subsequently multiple sagittal and coronal reformations were obtained. FINDINGS: Five lumbar vertebrae assumed and the levels are accordingly labeled. No compression fracture or aggressive bone lesions. No prior lumbar spine study is available for comparison. Incidental note of 2 cm size lesion in the left adrenal gland with fatty tissue consistent with benign nonfunctioning adenoma. T12-L1: Unremarkable. L1-L2: Minimal annular bulge. Bilateral facet arthritis with calcified ligamentum flavum minimally encroaching into the right side of the spinal canal. L2-L3: Old fracture of L3 which has lost more than 50% of its height with retropulsion of posterior superior fracture margin into the spinal canal causing spinal stenosis with moderate thecal sac compression. Grade 1 retrolisthesis of L3 over L2 noted. Severe disc degeneration with severe narrowing of the disc space, vacuum phenomenon in the disc material, [id number]-[id number] contact with endplate sclerosis noted. Additional vertical fracture noted through the right upper portion of L2 adjacent to the pedicle base and oblique fractures seen extending from left pedicle toward the transverse process. Slightly fracture noted in the left transverse process of L2. Thickened and partially calcified ligamentum flavum and bilateral facet arthritis noted causing additional encroachment into the spinal canal. Foraminal encroachment also noted on both sides by partially calcified prominent bulging disc and facet disease. L3-L4: Grade 1 spondylolisthesis of L3 over L4, disc degeneration with narrowing of the disc space by more than 90%, bone on bone contact, endplate sclerosis, vacuum phenomenon in the disc material, spinal stenosis with moderate thecal sac compression. Bilateral foraminal stenosis also noted. Bilateral facet arthritis noted with slightly thickened ligaments causing additional spinal canal encroachment. L4-L5: Disc degeneration with narrowing of the disc space by more than 80%, endplate sclerosis, endplate cystic changes in the upper L5, vacuum phenomena and in the disc material, diffuse bulging of the disc and mild facet arthritis is noted. Mild thecal sac compression and left foraminal stenosis noted. L5-S1: Disc space is slightly narrowed, minimal retrolisthesis of L5 over S1 noted with prominent bulging of the disc touching both nerve roots, left more than right. Small osteophytes/bulging disc encroaching into the left neural foramen without significant foraminal narrowing. CONCLUSIONS: 1. Mid lumbar levoscoliosis/kyphosis secondary to old fracture of L3 with loss of more than 50% of the height with grade 1 retrolisthesis of L3 over L2, grade 1 spondylolisthesis of L3 over L4. Spinal stenosis noted at both L2-L3 and L3-L4 due to retropulsion of posterior upper margin of L3 and L4 into spinal canal along with prominent/partially calcified bulging disc and thickened ligamentum flavum secondary to facet arthritis. Additional fractures seen involving the right posterior upper L2 closed to the pedicle, oblique fracture standing through the pedicle into left transverse process and slightly fracture in the left transverse processes of L2. 2. Moderate to severe degenerative disc disease at L2-L3, L3-L4, L4-L5. Performing Organization Address City/State/Zipcode Phone Number PACS/VR/DOSE documented in this encounter Visit Diagnoses Diagnosis History of fusion of cervical spine Arthrodesis status documented in this encounter Insurance Payer Benefit Plan / Subscriber ID Effective Dates Phone Address Type Group MEDICARE MEDICARE PART xxxxxxxxxxx 2011-Sandra [phone] [address] [facility] Medicare A & B t 2 [id number] [place] [phone] documented as of this encounter
--- OUTSIDE RECORDS SUMMARY | 2019-01-23 17:38 | XMS REPORT | Summary of Care ---
:1960 Author Organization [address] [address] Care Team Providers Name Role Phone Yue Haider Primary Care Provider Reason for Visit (Routine) Status Reason Specialty Diagnoses / Procedures Referred By Contact Referred To Contact Closed Radiology Diagnoses sched w/pt//Jorge L Nowak [facility] X-Ray Procedures XR CERVICAL SPINE 2 VW XR CERVICAL SPINE 2 VW [address] GONZÁLES [place], [place] [phone] [place] [address] Encounter Details Date Type Department Care Team Description 10/30/2018 Hospital Encounter [facility] Radiology Arrived [facility] [address] [place] [address] [place] [address] [place] [address] Allergies Active Allergy Reactions Severity Noted Date [...] Obstetrics & Gynecology Mary Jo Schwartz MD [address] [place] [address] [place] [address] [phone] Health Maintenance Due Date Last Done Comments [...] Name Priority Date/Time Associated Diagnosis Comments XR LUMBAR SPINE 2 Routine 10/30/2018 3:31 PM Fusion of lumbar Results for this VW CDT spine procedure are in the results section. XR CERVICAL SPINE 2 Routine 10/30/2018 3:31 PM History of fusion of Results for this VW CDT cervical spine procedure are in the results section. documented in this encounter Results XR LUMBAR SPINE 2 VW (10/30/2018 3:31 PM CDT) Specimen Narrative Performed At HISTORY: Fusion of lumbar spine. PACS/VR/DOSE FINDINGS: AP and lateral views of the lumbar spines showed 5 lumbar vertebrae with mid lumbar levoscoliosis and kyphosis, severe old fracture of L3, severe degenerative disc disease at L2-L3, L3-L4, L4-L5. L5-S1 disc space is minimally narrowed without significant degenerative changes in the vertebral margins. T12-L1 and L1-L2 disc spaces are intact. Cholecystectomy clips in the right upper abdomen noted. Sacroiliac joints are normal. CONCLUSIONS: Old fracture of L3 and severe degenerative disc disease at L2 with L3, L4, L4/L5 with mid lumbar levoscoliosis and kyphosis. No aggressive bone lesions. Procedure Note [facility], [facility]iant Results Inft User - 10/30/2018 3:34 PM CDT HISTORY: Fusion of lumbar spine. FINDINGS: AP and lateral views of the lumbar spines showed 5 lumbar vertebrae with mid lumbar levoscoliosis and kyphosis, severe old fracture of L3, severe degenerative disc disease at L2-L3, L3-L4, L4-L5. L5-S1 disc space is minimally narrowed without significant degenerative changes in the vertebral margins. T12-L1 and L1-L2 disc spaces are intact. Cholecystectomy clips in the right upper abdomen noted. Sacroiliac joints are normal. CONCLUSIONS: Old fracture of L3 and severe degenerative disc disease at L2 with L3, L4, L4/L5 with mid lumbar levoscoliosis and kyphosis. No aggressive bone lesions. Performing Organization Address City/State/[employer] Phone Number PACS/VR/DOSE XR CERVICAL SPINE 2 VW (10/30/2018 3:31 PM CDT) Specimen Narrative Performed At HISTORY: Cervical fusion. PACS/VR/DOSE FINDINGS: One AP and 2 lateral views of cervical spine showed no acute compression fracture or dislocation. No aggressive bone lesions. Discectomy with anterior interbody fusion noted at C5-C6, C6-C7 and C7-T1 levels. Metallic plate and screws are in good position. Visualized upper lungs are clear. No cervical rib visualized. Calcification in the left side of the soft tissue in the neck noted, does not appear to be vascular type. CONCLUSIONS: 1. No acute fracture or dislocation. 2. S/P ACDF changes at C5-C6-C7-T1 levels. 3. Facet arthritis noted at C3-C4, C4-C5. No significant uncovertebral joint degenerative disease. Procedure Note [facility], [facility] Results Inft User - 10/30/2018 3:36 PM CDT HISTORY: Cervical fusion. FINDINGS: One AP and 2 lateral views of cervical spine showed no acute compression fracture or dislocation. No aggressive bone lesions. Discectomy with anterior interbody fusion noted at C5-C6, C6-C7 and C7-T1 levels. Metallic plate and screws are in good position. Visualized upper lungs are clear. No cervical rib visualized. Calcification in the left side of the soft tissue in the neck noted, does not appear to be vascular type. CONCLUSIONS: 1. No acute fracture or dislocation. 2. S/P ACDF changes at C5-C6-C7-T1 levels. 3. Facet arthritis noted at C3-C4, C4-C5. No significant uncovertebral joint degenerative disease. Performing Organization Address City/State/[employer] Phone Number PACS/VR/DOSE documented in this encounter Visit Diagnoses Diagnosis History of fusion of cervical spine Arthrodesis status Fusion of lumbar spine documented in this encounter Insurance Payer Benefit Plan / Subscriber ID Effective Dates Phone Address Type Group MEDICARE MEDICARE PART xxxxxxxxxxx 2011-Sandra [phone] [address] Medicare A & B t 2 [id number] [place] [id number] documented as of this encounter
--- OUTSIDE RECORDS SUMMARY | 2019-01-23 17:38 | XMS REPORT | Summary of Care ---
:1960 Author Organization [facility] Address [address] [place] [address] Care Team Providers Name Role Phone Yue Haider Primary Care Provider Reason for Visit Reason Comments Notification Encounter Details Date Type Department Care Team Description 10/22/2018 Telephone [facility] Surgical Omar Armstrong, PAC Notification Specialties - [address], [address] [place] [phone] Allergies Active Allergy Reactions Severity Noted Date Comments Morphine Rash Low 01/09/2011 Morphine Sulfate Rash 01/09/2011 documented as of this encounter (statuses as of 10/23/2018) Medications Medication Sig Dispensed Refills Start Date [...] as of this encounter (statuses as of 10/23/2018) Active Problems Problem Noted Date Vaginal atrophy 10/04/2015 Menopausal vaginal dryness 10/04/2015 Dyspareunia 10/04/2015 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 [address] [phone] Health Maintenance Due Date Last Done Comments [...] Type Group MEDICARE MEDICARE PART xxxxxxxxxxx 2011-Sandra [phone] [address] Medicare A & B t 2 [id number] [place] [id number] documented as of this encounter
--- OUTSIDE RECORDS SUMMARY | 2019-01-23 17:38 | XMS REPORT | Summary of Care ---
:1960 Author Organization [facility] Address [address] [place] [address] Care Team Providers Name Role Phone Yue Haider Primary Care Provider Reason for Referral Radiology Services (Routine) Status Reason Specialty Diagnoses / Referred By Referred To Procedures Contact Contact New Request Diagnostic Diagnoses Left wrist pain Omar Armstrong, Radiology Procedures XR WRIST <3 VW LEFT PAC [address] [place] [place] [address] Reason for Visit Reason Comments Follow-up Wrist Pain left wrist pain Encounter Details Date Type Department Care Team Description 11/06/2018 Office Visit [facility] Orthopaedic Omar Armstrong, Left wrist pain Surgery- [place] PAC (Primary Dx) [address], [address] [place] [address] [place] [phone] Allergies Active Allergy Reactions Severity Noted [...] file Gets together: Not on file Attends muslim service: Not on file Active member of [...] domestic or physical violence within the home Episcopal Preference: Cheondoism Family History Problem Relation Age of Onset [...] Obstetrics & Gynecology Mary Jo Schwartz MD [address] [place] [address] [place] [address] [phone] Health Maintenance Due Date Last Done Comments [...] BOX Medicare A & B t 2 [id number] [place] [id number] documented as of this encounter
--- OUTSIDE RECORDS SUMMARY | 2019-01-23 17:38 | XMS REPORT | Summary of Care ---
:1960 Author Organization [facility] Address [address] [place] [address] Care Team Providers Name Role Phone Yue Haider Primary Care Provider Reason for Visit Reason Comments Notification Encounter Details Date Type Department Care Team Description 10/22/2018 Telephone [facility] Surgical Omar Armstrong, PAC Notification Specialties - [address], [address] [place] [phone] Allergies Active Allergy Reactions Severity Noted Date [...] Treatment Date Type Specialty Care Team Description 10/29/2018 Office Visit Orthopedic Surgery Reagan Norton MD [address] [place] [address] [phone] 07/06/2019 Office Visit Obstetrics & Gynecology Mary Jo Schwartz MD [address] [place] [address] [place] [address] [phone] Health Maintenance Due Date Last Done Comments [...] Address Type Group MEDICARE MEDICARE PART xxxxxxxxxxx [id number] [id number] [address] [facility] Medicare A & B t 2 [id number] SHMUEL L[place] [id number] documented as of this encounter
--- OUTSIDE RECORDS SUMMARY | 2019-01-23 17:39 | XMS REPORT | Summary of Care ---
:1960 Author Organization [facility] Address [address] [place] [address] Care Team Providers Name Role Phone Yue Haider Primary Care Provider Reason for Referral Radiology Services (Routine) Status Reason Specialty Diagnoses / Referred By Referred To Procedures Contact Contact New Request Diagnostic Diagnoses Left wrist pain Omar Armstrong, Radiology Procedures XR WRIST <3 VW LEFT PAC [address] [place] [address] [place] [address] Reason for Visit Reason Comments Follow-up Wrist Pain left wrist pain Encounter Details Date Type Department Care Team Description 11/06/2018 Office Visit [facility] Orthopaedic Omar Armstrong, Left wrist pain Surgery- [place] PAC (Primary Dx) [address], [address] [place] [address] [place] [phone] Allergies Active Allergy Reactions Severity Noted [...] BILOBA ORAL Take by mouth. GLUC PITTS/CHONDRO IPTTS A/VIT C/MN (GLUCOSAMINE CHONDROITIN MAXSTR ORAL) Take [...] file Gets together: Not on file Attends scientology service: Not on file Active member of [...] domestic or physical violence within the home Christian Preference: Buddhism Family History Problem Relation Age of Onset [...] Treatment Date Type Specialty Care Team Description 12/08/2018 Office Visit Orthopedic Surgery Omar Armstrong PAC [address] [facility] [place] [phone] 07/06/2019 Office Visit Obstetrics & Gynecology Mary Jo Schwartz MD [address] [place] [address] [place] [address] [phone] Health Maintenance Due Date Last Done Comments [...] BOX Medicare A & B t 2 [id number] [place]AC[place] [id number] documented as of this encounter
--- OUTSIDE RECORDS SUMMARY | 2019-01-23 17:39 | XMS REPORT | Summary of Care ---
:1960 Author Organization [facility] [place] [facility] Address [address] [place] [address] Care Team Providers Name Role Phone Yue Haider Primary Care Provider Reason for Visit Radiology Services (Routine) Status Reason Specialty Diagnoses / Referred By Referred To Procedures Contact Contact New Request Diagnostic Diagnoses Left wrist pain Omar Armstrong, Radiology Procedures XR WRIST <3 VW LEFT PAC [address] [place] [address] Encounter Details Date Type Department Care Team Description 11/06/2018 Hospital Encounter [facility] Omar Armstrong, [facility] Orthopedics - PAC Radiology [address] [place] [address] [place], [place] [phone] Allergies Active Allergy Reactions Severity Noted Date Comments Morphine Rash Low 01/09/2011 Morphine Sulfate Rash 01/09/2011 documented as of this encounter (statuses as of 11/07/2018) Medications Medication Sig Dispensed Refills Start Date [...] Take by mouth. 0 Active GLUC PITTS/CHONDRO IPTTS A/VIT Take by mouth. 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 [address] [phone] Health Maintenance Due Date Last Done Comments [...] Name Priority Date/Time Associated Diagnosis Comments XR WRIST <3 VW LEFT Routine 11/06/2018 1:58 PM Left wrist pain Results for this CDT procedure are in the results section. documented in this encounter Results XR WRIST <3 VW LEFT (11/06/2018 1:58 PM CDT) Specimen Narrative Performed At There is a ulnar styloid fracture PACS Performing Organization Address City/State/Zipcode Phone Number PACS documented in this encounter Visit Diagnoses Diagnosis Left wrist pain Pain in joint, forearm documented in this encounter Insurance Payer Benefit Plan / Subscriber ID Effective Dates Phone Address Type Group MEDICARE MEDICARE PART xxxxxxxxxxx 2011-Sandra [phone] [address] Medicare A & B t 2 [id number] [place] [id number] documented as of this encounter
[2019-01-23] MEDS ORDERED: ONDANSETRON 4 MG (ODT) TAB PO PRN (18:26)
[2019-01-23] MEDS ORDERED: hydrOXYzine HCL 25 MG TAB PO PRN (18:35)
[2019-01-23] MEDS: HYDROXYCHLOROQUINE 200MG TAB PO SCH (20:00)
[2019-01-23] MEDS: HEPARIN 5000 UNIT/ML 1 ML VIAL SQ SCH (20:54)
[2019-01-23] MEDS: ALPRAZOLAM 0.5 MG TABLET PO SCH (20:55)
[2019-01-23] MEDS: SENOSIDES 8.6 MG TAB PO SCH (20:55)
[2019-01-23] MEDS: BACLOFEN 10 MG TAB PO SCH (20:55)
[2019-01-23] MEDS: DULOXETINE 30 MG CAP PO SCH (20:56)
[2019-01-23] MEDS: CLOTRIMAZOLE 10 MG TROCHE PO SCH (20:58)
[2019-01-23] MEDS ORDERED: GABAPENTIN 300 MG CAP PO SCH (21:00)
[2019-01-24] MEDS ORDERED: HYDROCODONE/APAP 5/325 MG TAB PO PRN (02:03)
[2019-01-24] MEDS ORDERED: BISACODYL 10 MG RECTAL SUPP PR PRN (02:04)
[2019-01-24] MEDS: PROMETHAZINE 25 MG TABLET PO PRN (02:38)
[2019-01-24] MEDS ORDERED: HOME MED 1 EA UNK PO PRN (02:49)
[2019-01-24] MEDS: [UNRECOGNIZED DRUG - OTHER] PO SCH (06:30)
[2019-01-24] MEDS ORDERED: NALOXEGOL 25 MG PO SCH (06:30)
[2019-01-24 06:36] LABS: Absolute Lymphocytes (CBC) 1.9 K/uL (0.7-4.9); Basophils % 0.7 % (0-1.3); Hematocrit 31.8 % (36.0-45.0); Lymphocytes % 16.9 % (15.3-44.8)
[2019-01-24 06:59] LABS: Albumin 2.5 g/dL (3.4-5.0); BUN Blood Urea Nitrogen 17 mg/dL (7-18); Bicarbonate 32 mmol/L (21-32); Glucose Level 90 mg/dL (74-106); Magnesium 2.2 mg/dL (1.8-2.4); Potassium 3.7 mmol/L (3.5-5.1); Prealbumin 18.2 mg/dL (20-40); Sodium Level 143 mmol/L (136-145)
[2019-01-24] MEDS: HEPARIN 5000 UNIT/ML 1 ML VIAL SQ SCH ×2 (07:01→21:37)
[2019-01-24] MEDS: CLOTRIMAZOLE 10 MG TROCHE PO SCH ×6 (08:00→21:36)
[2019-01-24] MEDS ORDERED: predniSONE 20 MG TAB PO SCH (08:00)
[2019-01-24] MEDS ORDERED: methylPREDNISolone 4 MG TAB PO SCH ×2 (08:00)
[2019-01-24] MEDS: CALCIUM CARB 500MG/VIT D 200 IU TAB PO SCH (08:28)
[2019-01-24] MEDS: PANTOPRAZOLE 40MG TABLET PO SCH ×2 (08:28→16:05)
[2019-01-24] MEDS: SENOSIDES 8.6 MG TAB PO SCH ×2 (08:28→21:39)
[2019-01-24] MEDS: FUROSEMIDE 20 MG TABLET PO SCH (08:29)
[2019-01-24] MEDS: BACLOFEN 10 MG TAB PO SCH ×3 (08:29→21:37)
[2019-01-24] MEDS: POLYETHYL GLY 3350 17 GM/DOSE PO SCH (08:37)
[2019-01-24] MEDS: HYDROXYCHLOROQUINE 200MG TAB PO SCH ×2 (08:53→21:36)
[2019-01-24] MEDS: ALPRAZOLAM 0.5 MG TABLET PO SCH ×2 (08:53→21:35)
[2019-01-24] MEDS: GABAPENTIN 400 MG CAP PO SCH ×3 (08:56→21:35)
[2019-01-24 08:59] LABS: Urine Appearance CLEAR; Urine Bilirubin NEGATIVE (NEG); Urine Blood NEGATIVE (NEG); Urine Color YELLOW; Urine Glucose NEGATIVE (NEG); Urine Protein NEGATIVE (NEG); Urine Specific Gravity 1.015 (1.005-1.030); Urine pH 7.5 (5.0-7.0)
[2019-01-24] MEDS: HOME MED 1 EA UNK PO SCH ×4 (09:00→21:00)
[2019-01-24 09:24] LABS: Urine Bacteria <20 /HPF (<20); Urine Culture Reflex Order NOT NEEDED; Urine RBC <5 /HPF (NONE SEEN)
[2019-01-24 10:14] LABS: Platelet Estimate ADEQ; Urine White Blood Cell Casts OK
[2019-01-24 10:15] LABS: Blood Morphology Comment NOT SEEN (NOT SEEN)
[2019-01-24] MEDS ORDERED: MAGNESIUM HYDROXIDE 8% 30 ML PO PRN (13:40)
--- NOTE | 2019-01-24 15:02 | R.HP ---
FACILITY: [facility] ENCOUNTER DATE AND TIME: 01/24/2019 14:56 (BACTERIOLOGY TEACHER) MR#: [id number] NAME HONG SPICER ADDRESS: [address] [place] [address] [address] CITY: [place] [address] PHONE: DATE OF : 1960 AGE: 58 SSN# [id number] GENDER: Female DEXTERITY Right-handed MARITAL STATUS RACE White PRE-HOSPITAL LIVING SETTING 01 - Home (private home/apt. board/care, assisted living, assisted, transitional living) PRE-HOSPITAL LIVING WITH Family/Relatives ENCOUNTER PHYSICIAN: Dr. Garry Hodge M.D. REFERRING DOCTOR: Jorge L Benedict DATE OF ADMISSION: 01/23/2019 17:34 (BACTERIOLOGY TEACHER) REFERRING FACILITY [facility] HOME TYPE AND DETAILS: Type of home: single family house # of steps to enter the residence: 0 # of steps within the residence: 0 # of levels in the residence: 1 ADMISSION DIAGNOSIS: lumbar radiculopathy ONSET DATE: 01/19/2019 PRIMARY DIAGNOSIS-RELATED SURGERIES: extreme lateral interbody fusion L2-L5, posterior lumbar laminectomy w/instrumentation w/pedicle scre ws L2-L5 w/SSEP, MEP, EMG monitoring w/ DR Parrish SECONDARY/COMORBID DIAGNOSES (TIERED): - Non-Tiered Fibromyalgia (M79.7) - N/A osteoporosis psoriatic arthritis sjogren's syndrome HISTORY OF PRESENT ILLNESS (HPI): Pt. is a 58 yo Right-handed white female. On 01/19/2019 she was admitted to [facility] with diagnosis lumbar radiculopathy. Her impairment category is Spinal Cord Dysfunction 04 - Other Non-traumatic Spinal Cord Dysfunction (04.130). Pre-morbidly, Pt. was independent/mod-I in Locomotion, Endurance, Self-Care, Balance, Transfers Contr ol, Safety Awareness, Social Cognition, Ambulation, Communication, and Safety Awareness and Self-Care ; and she had good Sphincter Control. Currently, she has deficits of Locomotion, Balance, Safety Awareness, Ambulation, and pain limiting f unction. Pt. is now referred to [facility] for acute in-patient rehabilitation in order to maximize patient's functional independence in activities of daily living, strength, ROM, and mobi lity. Patient has realistic goal of being discharged at assistance level 6-Julia to reside at Home with Fam diana/Relatives. MEDICATION ALLERGIES: No Known Drug Allergies (NKDA) ENVIRONMENTAL ALLERGIES: - Substance Allergies None Known - Other Allergies None Known PAST MEDICAL HISTORY: Fibromyalgia (M79.7) osteoporosis psoriatic arthritis sjogren's syndrome FAMILY HISTORY: Family history is not contributory. SOCIAL HISTORY: - Home Living Family/Relatives REVIEW OF SYSTEMS: - Gen No Chills Fatigue No Fever - Eyes No Double Vision No itchiness - ENMT No Difficulty Swallowing - CVS No Chest Discomfort No Chest Pain Fatigue No Weight Gain - Resp No Cough No Shortness of Breath - GI Continent No Abdominal Pain Constipation No Diarrhea - Continent No Kidney Pain No Painful Urination No Urinary Urgency - MSK No Joint Pain Muscle Cramps Stiffness - Skin No Itching No Rash No Suspicious Lesions - Neuro Coordination Difficulty No Difficulty with Concentration No Memory Loss No Seizures Weakness - Psych No Anxiety No Depression No HIV Exposure No Persistent Infections No Seasonal Allergies - Endo No Cold/Heat Intolerance No Excessive Hunger No Excessive Thirst No Excessive Urination PHYSICAL EXAM - Gen Alert and awake Lying in bed No apparent distress Oriented to: person, time, and place - Vital Signs Vital signs stable, afebrile - Skin Back surgical sites have good hemostasis. Normacephalic - Eyes No abnormalities - ENMT No abnormalities - Neck No abnormalities - CVS RRR - Chest No abnormalities - Abd Soft - GI Non distended Deferred - No abnormalities - Ext No significant edema - MSK Unremarkable - Neuro No focal deficits - Psych No abnormalities VITAL SIGNS Temperature: 97.3 F SBP/DBP: 141/89 Pulse: 99 Resp: 14 NURSING: - Shower allowing shower - Bladder care per protocol - Skin care per protocol ACTIVITIES OOB only with supervision QI SCORES: - Self-Care A. Eating 06-Independent B. Oral hygiene 05-Setup or clean-up assistance C. Toileting hygiene 05-Setup or clean-up assistance E. Shower/bathe self 88-Not attempted due to medical condition or safety concerns F. Upper body dressing 04-Supervision or touching assistance G. Lower body dressing 03-Partial/moderate assistance H. Putting on/taking off footwear 88-Not attempted due to medical condition or safety concerns - Mobility A. Roll left and right 06-Independent B. Sit to lying 04-Supervision or touching assistance C. Lying to sitting on side of bed 05-Setup or clean-up assistance D. Sit to stand 04-Supervision or touching assistance E. Chair/vst-uj-rjarp transfer 04-Supervision or touching assistance F. Toilet transfer 04-Supervision or touching assistance G. Car transfer 88-Not attempted due to medical condition or safety concerns I. Walk 10 feet 04-Supervision or touching assistance J. Walk 50 feet with two turns 88-Not attempted due to medical condition or safety concerns K. Walk 150 feet 88-Not attempted due to medical condition or safety concerns L. Walking 10 feet on uneven surfaces 88-Not attempted due to medical condition or safety concerns M. 1 step (curb) 88-Not attempted due to medical condition or safety concerns N. 4 steps 88-Not attempted due to medical condition or safety concerns O. 12 steps 88-Not attempted due to medical condition or safety concerns P. Picking up object 88-Not attempted due to medical condition or safety concerns R. Wheel 50 feet with two turns 88-Not attempted due to medical condition or safety concerns S. Wheel 150 feet 88-Not attempted due to medical condition or safety concerns - Bladder and Bowel Bladder continence 4-Always incontinent Bowel continence 3-Always incontinent - Endurance Fair - Balance Fair - Safety Awareness Fair CURRENT FUNC. DEFICITS: Endurance, Balance, Safety Awareness, Self-Care, and Mobility MEDICATIONS: - Other See attached MAR (Medication Administration Record) ASSESSMENT: Pt. is a 58 yo Right-handed white female.On 01/19/2019 she was admitted to [facility] with diagnosis l umbar radiculopathy.Her impairment category is Spinal Cord Dysfunction 04 - Other Non-traumatic Spin al Cord Dysfunction (04.130).Pre-morbidly, Pt. was independent/mod-I in Locomotion, Endurance, Self-C are, Balance, Transfers Control, Safety Awareness, Social Cognition, Ambulation, Communication, and S afety Awareness and Self-Care; and she had good Sphincter Control.Currently, she has deficits of [place] motion, Balance, Safety Awareness, Ambulation, and pain limiting function.Pt. is now referred to [facility] for acute in-patient rehabilitation in order to maximize patient's func tional independence in activities of daily living, strength, ROM, and mobility.- Rehab Goal Patient has realistic goal of being discharged at assistance level 6-Julia to reside at Home with Fam diana/Relatives. - Physical Therapy Gait dysfunction - to improve, our physical therapists will perform initial evaluation of pt's status upon admission and devise an individualized program for Gait Training, and Wheel Chair mobility Need for home safety evaluation - to improve, our physical therapists will perform initial evaluation of pt's status upon admission and devise an individualized program for Home Evaluation Need in caregiver upon discharge - to improve, our physical therapists will perform initial evaluatio n of pt's status upon admission and devise an individualized program for Caregiver Training New precaution - to improve, our physical therapists will perform initial evaluation of pt's status u troy admission and devise an individualized program for Patient precaution education Edema - to improve, our physical therapists will perform initial evaluation of pt's status upon admi ssion and devise an individualized program for Elevation Training, and Lymphedema Therapy Poor balance - to improve, our physical therapists will perform initial evaluation of pt's status upo n admission and devise an individualized program for Balance Training Weakness - to improve, our physical therapists will perform initial evaluation of pt's status upon ad mission and devise an individualized program for Aquatic Therapy, Neuromuscular Reeducation, and Stre ngthening Achieving independence - to improve, our physical therapists will perform initial evaluation of pt's status upon admission and devise an individualized program for Community Reintegration Activities - Occupational Therapy Need for long term care administrator - to improve, our occupation therapists will perform initial evaluation of pt's s tatus upon admission and devise an individualized program for Caregiver Training Weakness - to improve, our occupation therapists will perform initial evaluation of pt's status upon admission and devise an individualized program for Aquatic Therapy, Balance, Endurance, UE ROM, and U E strengthening MEDICAL PLAN: - Diet Type Start Regular - Diet - Liquid Texture Start Regular - Tube Feed Start N/A - Bladder care per protocol - Skin care per protocol - Other See attached MAR (Medication Administration Record) - Diet - Solid Texture Regular - Shower shower DISCHARGE PLAN: - Estimated Length of Stay (days) 16. - Consensus on plan Discharge plan has been discussed with primary caregiver. Patient/Family is in agreement with the darius n. Primary caregiver is in agreement with the plan. - Patient/Family Goals Return home with assistance. - Planned Living Setting Upon Discharge Home, to live with Family/Relatives. SIGNATURE PANEL: (BACTERIOLOGY TEACHER)
--- NOTE | 2019-01-24 15:03 | PAPE ---
PATIENT: [facility] MR# [id number] REFERRING DOCTOR Jorge L Benedict EVALUATION DATE AND TIME 01/24/2019 15:02 (SALVAGE MECHANIC) NAME HONG SPICER DATE OF 1960 AGE 58 PHONE SSN# [id number] GENDER female EVALUATING PHYSICIAN Dr. Garry Hodge M.D. ADMISSION DIAGNOSIS: lumbar radiculopathy ONSET DATE 01/19/2019 SECONDARY/COMORBID DIAGNOSES TIERED: - Non-Tiered Fibromyalgia (M79.7) - N/A osteoporosis psoriatic arthritis sjogren's syndrome POST-ADMISSION FUNCTIONAL/MEDICAL STATUS: - Bladder Same accident frequency: Ind - No accidents in the past 7 days - Bowel Same accident frequency: Ind - No accidents in the past 7 days - Walking Same score based on distance walked: 1(<=50ft) - Wheelchair Same score based on distance traveled: 1(<=50ft) STATUS CHANGE EVALUATION: No change in Functional or Medical Status is identified compared with Pre-Admission screening. PATIENT NEEDS CLOSE MEDICAL SUPERVISION BY A REHABILITATION PHYSICIAN FOR: Coordination of Treatment Team Medical and Co-Morbidity Management Wound Care PATIENT REQUIRES 24X7 REHAB NURSING FOR MEDICAL AND FUNCTIONAL MGT. OF THE FOLLOWING DEFICITS: Disease Management Medication Management Patient/Family Education Providing Safe Environment Skin Integrity PATIENT REQUIRES INTENSIVE, COORDINATED INTERDISCIPLINARY APPROACH TO REHAB: Arranging Home Equipment/Services Discharge Planning Family Intervention/Training Senior Quantity Surveyor/Case Management LIST OF IDENTIFIED AND POTENTIAL PROBLEMS: Alteration in leisure activities Bladder, Incontinence Bowel, Incontinence Infection, Actual or Potential Mobility Impaired Pain, Alteration in Comfort Self Care Deficit Skin Integrity, Actual or Potential Urinary Tract Infection (UTI), Actual or Potential RISK FOR COMPLICATIONS - Osteoporosis Falls. Fractures (pathological). INTERVENTIONS - Osteoporosis Medications. Safety. PATIENT COULD BE AT RISK FOR COMPLICATIONS FROM ADVERSE MEDICAL CONDITIONS DUE TO HIS/HER COMORBIDITI ES AND THE RIGORS OF THE INTENSIVE REHABILLITATION PROGRAM. METHODS OR INTERVENTIONS TO AVOID COMPLIC ATIONS INCLUDE: - Bleeding Assess lab values and manage abnormalities. Nursing to teach precautions for anti-coagulation therapy . Wound to be assessed every shift. - Infection Clinical staff to assess and manage the signs and symptoms of infection including fever, redness, war mth, etc. - Urinary Tract Infection - Falls Patient will be evaluated for Fall Precautions and will be placed on Fall Precautions as indicated pe r protocol. - Skin Breakdown Nursing will assess skin daily using assessment tool and will place on Skin Breakdown Precautions as indicated per protocol. - Pain Clinical staff may employ non-medication methods such as massage, distraction, decrease stimulus, etc . as needed. Clinical staff will assess patient's pain level every shift per protocol to assess and e nsure pain management effectiveness. Medications will be given and the pain level re-assessed. PRELIMINARY PLAN OF CARE: - Physical Therapy Patient needs Physical Therapy for a daily minimum of 1.5 hours at least 5 out of 7 days, to improve: Mobility, Strengthening, Transfers, Stretching, ROM, Endurance, Ability to manage stairs, Gait, and Balance. - Rehabilitation Nursing Patient requires 24x7 Rehabilitation Nursing for: Pain Issues, Identifying and preventing risk factor s, Monitoring and reporting current medical conditions, Assisting with ambulation and transfer, Nestor ting with all ADL-s, Teaching patients about disease process and medications, Family teaching, Provid ing safe environment, Bowel and Bladder Issues, Skin Integrity, and Medication Management. Patient needs Senior Quantity Surveyor and/or Case Management for: Discharge Planning, Arranging Home Equipmen t or Services, and Family Interventions. - Dietary and Nutrition Services Patient needs Dietary and Nutrition Services for: Adequate Nutrition, Nutritional Supplements, and Nu tritional Education. - Occupational Therapy Patient needs Occupational Therapy for a daily minimum of 1.5 hours at least 5 out of 7 days, to impr ove Activities of Daily Living, including: Eating, Grooming, Bathing, Dressing, Toileting, Toilet Tra nsfers, Community Reintegration, Higher functional activities, Adaptive Equipment, Splinting, Househo ld Tasks, and Other activities as determined. QI SCORES: - Self-Care A. Eating 06-Independent B. Oral hygiene 05-Setup or clean-up assistance C. Toileting hygiene 05-Setup or clean-up assistance E. Shower/bathe self 88-Not attempted due to medical condition or safety concerns F. Upper body dressing 04-Supervision or touching assistance G. Lower body dressing 03-Partial/moderate assistance H. Putting on/taking off footwear 88-Not attempted due to medical condition or safety concerns - Mobility A. Roll left and right 06-Independent B. Sit to lying 04-Supervision or touching assistance C. Lying to sitting on side of bed 05-Setup or clean-up assistance D. Sit to stand 04-Supervision or touching assistance E. Chair/rvn-fd-dwbww transfer 04-Supervision or touching assistance F. Toilet transfer 04-Supervision or touching assistance G. Car transfer 88-Not attempted due to medical condition or safety concerns I. Walk 10 feet 04-Supervision or touching assistance J. Walk 50 feet with two turns 88-Not attempted due to medical condition or safety concerns K. Walk 150 feet 88-Not attempted due to medical condition or safety concerns L. Walking 10 feet on uneven surfaces 88-Not attempted due to medical condition or safety concerns M. 1 step (curb) 88-Not attempted due to medical condition or safety concerns N. 4 steps 88-Not attempted due to medical condition or safety concerns O. 12 steps 88-Not attempted due to medical condition or safety concerns P. Picking up object 88-Not attempted due to medical condition or safety concerns R. Wheel 50 feet with two turns 88-Not attempted due to medical condition or safety concerns S. Wheel 150 feet 88-Not attempted due to medical condition or safety concerns - Bladder and Bowel Bladder continence 4-Always incontinent Bowel continence 3-Always incontinent - Endurance Fair - Balance Fair - Safety Awareness Fair POTENTIAL FUNCTIONAL GOALS FOR PATIENT TO ACHIEVE BY DISCHARGE: - Safety Precaution Patient will remain free from falls or injury at time of discharge. - Bed Mobility Patient will perform bed mobility at 4-Maria Guadalupe level of assistance. - Transfers Patient will complete transfers from bed to chair at 4-Maria Guadalupe level of assistance. - Mobility Patient will ambulate 150 ft with 4-Maria Guadalupe level of assistance with RW. PATIENT REHAB POTENTIAL TylerRachelle DANNIELLE is able and expected to receive 3 hours of individualized therapy daily on at least 5 o f every 7 days Candi SPICER's prognosis for significant practical improvement within a reasonable period of time ap pears Good Expected level of measurable improvement will be of a practical value to Candi SPICER's functional c apacity or adaptations to impairments Has a viable Discharge Plan Medically appropriate; condition is sufficiently stable to participate in intensive rehab program DISCHARGE PLAN: - Estimated Length of Stay (days) 16. - Consensus on plan Discharge plan has been discussed with primary caregiver. Patient/Family is in agreement with the darius n. Primary caregiver is in agreement with the plan. - Patient/Family Goals Return home with assistance. - Planned Living Setting Upon Discharge Home, to live with Family/Relatives. CONCLUSION ON REHABILITATION NECESSITY: I have evaluated patient's pre-admission functional status and, comparing it to the patient's post-ad mission functional status now, I conclude that the pre-admission assessment was accurate. Patient's c ondition on admission supports the medical necessity of admission to IRF. It is safe to proceed with patient's therapy program. SIGNATURE PANEL: (SALVAGE MECHANIC)
--- NOTE | 2019-01-24 15:42 | FAST ---
ENCOUNTER DATE AND TIME: 01/24/2019 08:00 (FACETER) NAME HONG SPICER DATE OF : 1960 DATE OF ADMISSION: 01/23/2019 17:34 (FACETER) PHONE: AGE: 58 N# [id number] GENDER: Female ENCOUNTER PHYSICIAN: Dr. Garry Hodge M.D. 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 EATING: EATING - STEP 1: Does the patient complete the activity by him/herself with no assistance (physical, verbal/nonverbal cueing, setup/clean-up)? Yes. 1. [id number] ADMISSION PERFORMANCE: Independent CODE: 06 ORAL HYGIENE: ORAL HYGIENE - STEP 1: Does the patient complete the activity by him/herself with no assistance (physical, verbal/nonverbal cueing, setup/clean-up)? Yes. 1. [id number] ADMISSION PERFORMANCE: Independent CODE: 06 TOILETING HYGIENE: TOILETING HYGIENE - STEP 1: Does the patient complete the activity by him/herself with no assistance (physical, verbal/nonverbal cueing, setup/clean-up)? Yes. 1. [id number] ADMISSION PERFORMANCE: Independent CODE: 06 BATHING: SHOWER/BATHE SELF - STEP 1: Does the patient complete the activity by him/herself with no assistance (physical, verbal/nonverbal cueing, setup/clean-up)? No. SHOWER/BATHE SELF - STEP 2: Does the patient need only setup/clean-up assistance from one helper? Yes. 1. [id number] ADMISSION PERFORMANCE: Setup or clean-up assistance CODE: 05 DRESSING - UPPER BODY: DRESSING - UPPER BODY - STEP 1: Does the patient complete the activity by him/herself with no assistance (physical, verbal/nonverbal cueing, setup/clean-up)? Yes. 1. [id number] ADMISSION PERFORMANCE: Independent CODE: 06 DRESSING - LOWER BODY: DRESSING - LOWER BODY - STEP 1: Does the patient complete the activity by him/herself with no assistance (physical, verbal/nonverbal cueing, setup/clean-up)? No. DRESSING - LOWER BODY - STEP 2: Does the patient need only setup/clean-up assistance from one helper? Yes. 1. [id number] ADMISSION PERFORMANCE: Setup or clean-up assistance CODE: 05 PUTTING ON/TAKING OFF FOOTWEAR: FOOTWEAR - STEP 1: Does the patient complete the activity by him/herself with no assistance (physical, verbal/nonverbal cueing, setup/clean-up)? No. FOOTWEAR - STEP 2: Does the patient need only setup/clean-up assistance from one helper? Yes. 1. [id number] ADMISSION PERFORMANCE: Setup or clean-up assistance CODE: 05 DOES THE PATIENT USE A WHEELCHAIR/SCOOTER? CODE: EXPR INDICATE THE TYPE OF WHEELCHAIR/SCOOTER USED: CODE: EXPR INDICATE THE TYPE OF WHEELCHAIR/SCOOTER USED: CODE: EXPR BLADDER AND BOWEL: CODE: EXPR CODE: EXPR SIGNATURE PANEL: The following modified sections: 1. [id number] Admission Performance, 1. [id number] Admission Performance, 1. [id number] Admission Performance, 1. [id number] Admission Performance, 1. UC2134h Admission Performance, 1. FF1309e Admission Performance, 1. LL9678d Admission Performance were [electronically] signed by Luis Angel Zaman OT on SatJan 24 2019 15:41:43 GMT-0600 (Central Standard Time)
--- NOTE | 2019-01-24 16:07 | FAST ---
SHIFT START DATE/TIME: 01/24/2019 07:00 (MOBILE PET GROOMER) SHIFT END DATE/TIME: 01/24/2019 19:00 (MOBILE PET GROOMER) NAME HONG SPICER DATE OF : 1960 DATE OF ADMISSION: 01/23/2019 17:34 (MOBILE PET GROOMER) PHONE: AGE: 58 N# [id number] GENDER: Female ENCOUNTER PHYSICIAN: Dr. Garry Hodge M.D. 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 EATING: EATING - STEP 1: Does the patient complete the activity by him/herself with no assistance (physical, verbal/nonverbal cueing, setup/clean-up)? No. EATING - STEP 2: Does the patient need only setup/clean-up assistance from one helper? Yes. 1. [id number] ADMISSION PERFORMANCE: Setup or clean-up assistance CODE: 05 ORAL HYGIENE: ORAL HYGIENE - STEP 1: Does the patient complete the activity by him/herself with no assistance (physical, verbal/nonverbal cueing, setup/clean-up)? Yes. 1. [id number] ADMISSION PERFORMANCE: Independent CODE: 06 TOILETING HYGIENE: TOILETING HYGIENE - STEP 1: Does the patient complete the activity by him/herself with no assistance (physical, verbal/nonverbal cueing, setup/clean-up)? No. TOILETING HYGIENE - STEP 2: Does the patient need only setup/clean-up assistance from one helper? Yes. 1. [id number] ADMISSION PERFORMANCE: Setup or clean-up assistance CODE: 05 BATHING: Not assessed/no information CODE: - DRESSING - UPPER BODY: DRESSING - UPPER BODY - STEP 1: Does the patient complete the activity by him/herself with no assistance (physical, verbal/nonverbal cueing, setup/clean-up)? No. DRESSING - UPPER BODY - STEP 2: Does the patient need only setup/clean-up assistance from one helper? Yes. 1. [id number] ADMISSION PERFORMANCE: Setup or clean-up assistance CODE: 05 DRESSING - LOWER BODY: DRESSING - LOWER BODY - STEP 1: Does the patient complete the activity by him/herself with no assistance (physical, verbal/nonverbal cueing, setup/clean-up)? No. DRESSING - LOWER BODY - STEP 2: Does the patient need only setup/clean-up assistance from one helper? Yes. 1. [id number] ADMISSION PERFORMANCE: Setup or clean-up assistance CODE: 05 PUTTING ON/TAKING OFF FOOTWEAR: FOOTWEAR - STEP 1: Does the patient complete the activity by him/herself with no assistance (physical, verbal/nonverbal cueing, setup/clean-up)? No. FOOTWEAR - STEP 2: Does the patient need only setup/clean-up assistance from one helper? Yes. 1. [id number] ADMISSION PERFORMANCE: Setup or clean-up assistance CODE: 05 ROLL LEFT AND RIGHT: ROLL LEFT AND RIGHT - STEP 1: Does the patient complete the activity by him/herself with no assistance (physical, verbal/nonverbal cueing, setup/clean-up)? No. ROLL LEFT AND RIGHT - STEP 2: Does the patient need only setup/clean-up assistance from one helper? No. ROLL LEFT AND RIGHT - STEP 3: Does the patient need only verbal/nonverbal cueing or touching/steadying/contact guard assistance fro m one helper? Yes. 1. [id number] ADMISSION PERFORMANCE: Supervision or touching assistance CODE: 04 SIT TO LYING: SIT TO LYING - STEP 1: Does the patient complete the activity by him/herself with no assistance (physical, verbal/nonverbal cueing, setup/clean-up)? No. SIT TO LYING - STEP 2: Does the patient need only setup/clean-up assistance from one helper? No. SIT TO LYING - STEP 3: Does the patient need only verbal/nonverbal cueing or touching/steadying/contact guard assistance fro m one helper? Yes. 1. [id number] ADMISSION PERFORMANCE: Supervision or touching assistance CODE: 04 LYING TO SITTING: LYING TO SITTING ON SIDE OF BED - STEP 1: Does the patient complete the activity by him/herself with no assistance (physical, verbal/nonverbal cueing, setup/clean-up)? No. LYING TO SITTING ON SIDE OF BED - STEP 2: Does the patient need only setup/clean-up assistance from one helper? No. LYING TO SITTING ON SIDE OF BED - STEP 3: Does the patient need only verbal/nonverbal cueing or touching/steadying/contact guard assistance fro m one helper? Yes. 1. [id number] ADMISSION PERFORMANCE: Supervision or touching assistance CODE: 04 SIT TO STAND: SIT TO STAND - STEP 1: Does the patient complete the activity by him/herself with no assistance (physical, verbal/nonverbal cueing, setup/clean-up)? No. SIT TO STAND - STEP 2: Does the patient need only setup/clean-up assistance from one helper? No. SIT TO STAND - STEP 3: Does the patient need only verbal/nonverbal cueing or touching/steadying/contact guard assistance fro m one helper? Yes. 1. [id number] ADMISSION PERFORMANCE: Supervision or touching assistance CODE: 04 TRANSFERS: BED, CHAIR: CHAIR/[id number] TRANSFER - STEP 1: Does the patient complete the activity by him/herself with no assistance (physical, verbal/nonverbal cueing, setup/clean-up)? No. CHAIR/[id number] TRANSFER - STEP 2: Does the patient need only setup/clean-up assistance from one helper? No. CHAIR/[id number] TRANSFER - STEP 3: Does the patient need only verbal/nonverbal cueing or touching/steadying/contact guard assistance fro m one helper? Yes. 1. [id number] ADMISSION PERFORMANCE: Supervision or touching assistance CODE: 04 TRANSFER TOILET: TOILET TRANSFER - STEP 1: Does the patient complete the activity by him/herself with no assistance (physical, verbal/nonverbal cueing, setup/clean-up)? No. TOILET TRANSFER - STEP 2: Does the patient need only setup/clean-up assistance from one helper? Yes. 1. [id number] ADMISSION PERFORMANCE: Setup or clean-up assistance CODE: 05 TRANSFERS: CAR: Not assessed/no information CODE: - WALK 10 FEET: Not assessed/no information CODE: - 1 STEP (CURB): Not assessed/no information CODE: - PICKING UP OBJECT: Not assessed/no information CODE: - DOES THE PATIENT USE A WHEELCHAIR/SCOOTER? Q1. DOES THE PATIENT USE A WHEELCHAIR/SCOOTER?: Yes CODE: 1 WHEEL 50 FEET WITH TWO TURNS: WHEEL 50 FEET WITH TWO TURNS - STEP 1: Does the patient complete the activity by him/herself with no assistance (physical, verbal/nonverbal cueing, setup/clean-up)? No. WHEEL 50 FEET WITH TWO TURNS - STEP 2: Does the patient need only setup/clean-up assistance from one helper? Yes. 1. [id number] ADMISSION PERFORMANCE: Setup or clean-up assistance CODE: 05 INDICATE THE TYPE OF WHEELCHAIR/SCOOTER USED: RR1. INDICATE THE TYPE OF WHEELCHAIR/SCOOTER USED.: Manual CODE: 1 WHEEL 150 FEET: Not assessed/no information CODE: - INDICATE THE TYPE OF WHEELCHAIR/SCOOTER USED: SS1. INDICATE THE TYPE OF WHEELCHAIR/SCOOTER USED.: Manual CODE: 1 BLADDER AND BOWEL: H350. BLADDER CONTINENCE (3-DAY ASSESSMENT PERIOD): Always continent (no documented incontinence) CODE: 0 H400. BOWEL CONTINENCE (3-DAY ASSESSMENT PERIOD): Always continent CODE: 0 SIGNATURE PANEL: The following modified sections: 1. [id number] Admission Performance, 1. [id number] Admission Performance, 1. KT3266N Admission Performance, 1. HJ7056z Admission Performance, 1. FT0132j Admission Performance, 1. CE9080g Admission Performance, 1. IY0597X Admission Performance, 1. QF0722R Admission Performance , 1. ZZ7515V Admission Performance, 1. EC1901E Admission Performance, 1. ID7174V Admission Performanc e, 1. NA1719D Admission Performance, 1. GC6709W Admission Performance, 1. CH4104O Admission Performan ce, 1. RM7402T Admission Performance, 1. QY0059L Admission Performance, 1. TX0455g Admission Performa nce, 1. FG9076z Admission Performance, 1. CA9110b Admission Performance, 1. EC5364Z Admission Perform ance, Q1. Does the patient use a wheelchair/scooter?, 1. QL4083Z Admission Performance, 1. PK0144Y Ad mission Performance, 1. ON0827W Admission Performance, 1. YM9262L Admission Performance, 1. ZN6342X A dmission Performance, 1. VT2938P Admission Performance, RR1. Indicate the type of wheelchair/scooter used., Code, SS1. Indicate the type of wheelchair/scooter used., H350. Bladder Continence (3-day asse ssment period), H400. Bowel Continence (3-day assessment period) were [electronically] signed by Cinthya Sanchez C.N.A. on Sat Jan 24 2019 16:07:29 GMT-0600 (Central Standard Time)
[2019-01-24] MEDS: DULOXETINE 30 MG CAP PO SCH (21:35)
[2019-01-25] MEDS: [UNRECOGNIZED DRUG - OTHER] PO SCH (06:30)
[2019-01-25] MEDS: HEPARIN 5000 UNIT/ML 1 ML VIAL SQ SCH ×2 (07:15→20:39)
[2019-01-25] MEDS ORDERED: methylPREDNISolone 4 MG TAB PO SCH ×3 (07:30→21:00)
[2019-01-25] MEDS: POLYETHYL GLY 3350 17 GM/DOSE PO SCH (08:00)
[2019-01-25] MEDS: SENOSIDES 8.6 MG TAB PO SCH ×2 (08:00→20:27)
[2019-01-25] MEDS: CLOTRIMAZOLE 10 MG TROCHE PO SCH ×5 (08:00→20:27)
[2019-01-25] MEDS: GABAPENTIN 400 MG CAP PO SCH ×3 (08:22→20:27)
[2019-01-25] MEDS: HYDROXYCHLOROQUINE 200MG TAB PO SCH ×2 (08:22→20:27)
[2019-01-25] MEDS: BACLOFEN 10 MG TAB PO SCH ×2 (08:23→20:27)
[2019-01-25] MEDS: FUROSEMIDE 20 MG TABLET PO SCH (08:23)
[2019-01-25] MEDS: CALCIUM CARB 500MG/VIT D 200 IU TAB PO SCH (08:23)
[2019-01-25] MEDS: PANTOPRAZOLE 40MG TABLET PO SCH ×2 (08:23→16:23)
[2019-01-25] MEDS: HOME MED 1 EA UNK PO SCH ×2 (08:27→21:00)
[2019-01-25] MEDS: predniSONE 20 MG TAB PO SCH (09:20)
[2019-01-25] MEDS: ALPRAZOLAM 0.5 MG TABLET PO SCH ×2 (09:20→20:27)
[2019-01-25] MEDS: DULOXETINE 30 MG CAP PO SCH (20:27)
[2019-01-25] MEDS: PROMOD 30 ML DOSE PO SCH (21:33)
[2019-01-26] MEDS: [UNRECOGNIZED DRUG - OTHER] PO SCH (06:17)
[2019-01-26] MEDS ORDERED: methylPREDNISolone 4 MG TAB PO SCH (07:30)
[2019-01-26] MEDS: SENOSIDES 8.6 MG TAB PO SCH ×2 (08:00→19:54)
[2019-01-26] MEDS: PROMOD 30 ML DOSE PO SCH ×2 (08:00→19:55)
[2019-01-26] MEDS: POLYETHYL GLY 3350 17 GM/DOSE PO SCH (08:00)
[2019-01-26] MEDS: CLOTRIMAZOLE 10 MG TROCHE PO SCH ×5 (08:00→19:55)
[2019-01-26] MEDS: HEPARIN 5000 UNIT/ML 1 ML VIAL SQ SCH ×2 (08:30→18:12)
[2019-01-26] MEDS: PANTOPRAZOLE 40MG TABLET PO SCH ×2 (08:30→16:46)
[2019-01-26] MEDS: ALPRAZOLAM 0.5 MG TABLET PO SCH (08:42)
[2019-01-26] MEDS: predniSONE 20 MG TAB PO SCH (08:42)
[2019-01-26] MEDS: GABAPENTIN 400 MG CAP PO SCH ×3 (08:42→19:54)
[2019-01-26] MEDS: FUROSEMIDE 20 MG TABLET PO SCH (08:44)
[2019-01-26] MEDS: BACLOFEN 10 MG TAB PO SCH ×2 (08:44→19:53)
[2019-01-26] MEDS: CALCIUM CARB 500MG/VIT D 200 IU TAB PO SCH (08:44)
[2019-01-26] MEDS: HYDROXYCHLOROQUINE 200MG TAB PO SCH ×2 (08:46→19:53)
--- NOTE | 2019-01-26 11:36 | FAST ---
SHIFT START DATE/TIME: 01/26/2019 07:00 (BIOMEDICAL ENGINEERING TECHNICIAN) SHIFT END DATE/TIME: 01/26/2019 19:00 (BIOMEDICAL ENGINEERING TECHNICIAN) NAME OHNG SPICER DATE OF : 1960 DATE OF ADMISSION: 01/23/2019 17:34 (BIOMEDICAL ENGINEERING TECHNICIAN) PHONE: AGE: 58 N# [id number] GENDER: Female ENCOUNTER PHYSICIAN: Dr. Garry Hodge M.D. 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 EATING: EATING - STEP 1: Does the patient complete the activity by him/herself with no assistance (physical, verbal/nonverbal cueing, setup/clean-up)? No. EATING - STEP 2: Does the patient need only setup/clean-up assistance from one helper? Yes. 1. [id number] ADMISSION PERFORMANCE: Setup or clean-up assistance CODE: 05 ORAL HYGIENE: ORAL HYGIENE - STEP 1: Does the patient complete the activity by him/herself with no assistance (physical, verbal/nonverbal cueing, setup/clean-up)? No. ORAL HYGIENE - STEP 2: Does the patient need only setup/clean-up assistance from one helper? No. ORAL HYGIENE - STEP 3: Does the patient need only verbal/nonverbal cueing or touching/steadying/contact guard assistance fro m one helper? Yes. 1. [id number] ADMISSION PERFORMANCE: Supervision or touching assistance CODE: 04 TOILETING HYGIENE: TOILETING HYGIENE - STEP 1: Does the patient complete the activity by him/herself with no assistance (physical, verbal/nonverbal cueing, setup/clean-up)? No. TOILETING HYGIENE - STEP 2: Does the patient need only setup/clean-up assistance from one helper? No. TOILETING HYGIENE - STEP 3: Does the patient need only verbal/nonverbal cueing or touching/steadying/contact guard assistance fro m one helper? No. TOILETING HYGIENE - STEP 4: Does the patient need physical assistance - for example lifting or trunk support from one helper - wi th the helper providing less than half of the effort? Yes. 1. [id number] ADMISSION PERFORMANCE: Partial/moderate assistance CODE: 03 BATHING: Not assessed/no information CODE: - DRESSING - UPPER BODY: Not assessed/no information CODE: - DRESSING - LOWER BODY: Not assessed/no information CODE: - PUTTING ON/TAKING OFF FOOTWEAR: Not assessed/no information CODE: - ROLL LEFT AND RIGHT: ROLL LEFT AND RIGHT - STEP 1: Does the patient complete the activity by him/herself with no assistance (physical, verbal/nonverbal cueing, setup/clean-up)? No. ROLL LEFT AND RIGHT - STEP 2: Does the patient need only setup/clean-up assistance from one helper? No. ROLL LEFT AND RIGHT - STEP 3: Does the patient need only verbal/nonverbal cueing or touching/steadying/contact guard assistance fro m one helper? Yes. 1. [id number] ADMISSION PERFORMANCE: Supervision or touching assistance CODE: 04 SIT TO LYING: SIT TO LYING - STEP 1: Does the patient complete the activity by him/herself with no assistance (physical, verbal/nonverbal cueing, setup/clean-up)? No. SIT TO LYING - STEP 2: Does the patient need only setup/clean-up assistance from one helper? No. SIT TO LYING - STEP 3: Does the patient need only verbal/nonverbal cueing or touching/steadying/contact guard assistance fro m one helper? Yes. 1. [id number] ADMISSION PERFORMANCE: Supervision or touching assistance CODE: 04 LYING TO SITTING: LYING TO SITTING ON SIDE OF BED - STEP 1: Does the patient complete the activity by him/herself with no assistance (physical, verbal/nonverbal cueing, setup/clean-up)? No. LYING TO SITTING ON SIDE OF BED - STEP 2: Does the patient need only setup/clean-up assistance from one helper? No. LYING TO SITTING ON SIDE OF BED - STEP 3: Does the patient need only verbal/nonverbal cueing or touching/steadying/contact guard assistance fro m one helper? Yes. 1. [id number] ADMISSION PERFORMANCE: Supervision or touching assistance CODE: 04 SIT TO STAND: SIT TO STAND - STEP 1: Does the patient complete the activity by him/herself with no assistance (physical, verbal/nonverbal cueing, setup/clean-up)? No. SIT TO STAND - STEP 2: Does the patient need only setup/clean-up assistance from one helper? No. SIT TO STAND - STEP 3: Does the patient need only verbal/nonverbal cueing or touching/steadying/contact guard assistance fro m one helper? Yes. 1. [id number] ADMISSION PERFORMANCE: Supervision or touching assistance CODE: 04 TRANSFERS: BED, CHAIR: CHAIR/[id number] TRANSFER - STEP 1: Does the patient complete the activity by him/herself with no assistance (physical, verbal/nonverbal cueing, setup/clean-up)? No. CHAIR/[id number] TRANSFER - STEP 2: Does the patient need only setup/clean-up assistance from one helper? No. CHAIR/[id number]-[id number] TRANSFER - STEP 3: Does the patient need only verbal/nonverbal cueing or touching/steadying/contact guard assistance fro m one helper? Yes. 1. [id number] ADMISSION PERFORMANCE: Supervision or touching assistance CODE: 04 TRANSFER TOILET: TOILET TRANSFER - STEP 1: Does the patient complete the activity by him/herself with no assistance (physical, verbal/nonverbal cueing, setup/clean-up)? No. TOILET TRANSFER - STEP 2: Does the patient need only setup/clean-up assistance from one helper? No. TOILET TRANSFER - STEP 3: Does the patient need only verbal/nonverbal cueing or touching/steadying/contact guard assistance fro m one helper? Yes. 1. [id number] ADMISSION PERFORMANCE: Supervision or touching assistance CODE: 04 TRANSFERS: CAR: Not assessed/no information CODE: - WALK 10 FEET: Not assessed/no information CODE: - 1 STEP (CURB): Not assessed/no information CODE: - PICKING UP OBJECT: Not assessed/no information CODE: - DOES THE PATIENT USE A WHEELCHAIR/SCOOTER? CODE: EXPR WHEEL 50 FEET WITH TWO TURNS: Not assessed/no information CODE: - INDICATE THE TYPE OF WHEELCHAIR/SCOOTER USED: CODE: EXPR WHEEL 150 FEET: Not assessed/no information CODE: - INDICATE THE TYPE OF WHEELCHAIR/SCOOTER USED: CODE: EXPR BLADDER AND BOWEL: H350. BLADDER CONTINENCE (3-DAY ASSESSMENT PERIOD): Always continent (no documented incontinence) CODE: 0 H400. BOWEL CONTINENCE (3-DAY ASSESSMENT PERIOD): Always continent CODE: 0 SIGNATURE PANEL: The following modified sections: 1. [id number] Admission Performance, 1. [id number] Admission Performance, 1. [id number] Admission Performance, 1. [id number] Admission Performance, 1. [id number] Admission Performance, 1. [id number] Admission Performance, 1. [id number] Admission Performance, 1. [id number] Admission Performance , 1. [id number] Admission Performance, Code, H350. Bladder Continence (3-day assessment period), H400. B owel Continence (3-day assessment period) were [electronically] signed by Andrew Rome on SatJan 26 11:34:49 GMT-0600 (Central Standard Time)
--- NOTE | 2019-01-26 12:14 | FAST ---
ENCOUNTER DATE AND TIME: 01/26/2019 08:00 (RADIOLOGY THERAPIST) NAME HONG SPICER DATE OF : 1960 DATE OF ADMISSION: 01/23/2019 17:34 (RADIOLOGY THERAPIST) PHONE: AGE: 58 N# [id number] GENDER: Female ENCOUNTER PHYSICIAN: Dr. Garry Hodge M.D. 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 EATING: Not assessed/no information CODE: - ORAL HYGIENE: ORAL HYGIENE - STEP 1: Does the patient complete the activity by him/herself with no assistance (physical, verbal/nonverbal cueing, setup/clean-up)? Yes. 1. [id number] ADMISSION PERFORMANCE: Independent CODE: 06 TOILETING HYGIENE: Not assessed/no information CODE: - BATHING: SHOWER/BATHE SELF - STEP 1: Does the patient complete the activity by him/herself with no assistance (physical, verbal/nonverbal cueing, setup/clean-up)? No. SHOWER/BATHE SELF - STEP 2: Does the patient need only setup/clean-up assistance from one helper? No. SHOWER/BATHE SELF - STEP 3: Does the patient need only verbal/nonverbal cueing or touching/steadying/contact guard assistance fro m one helper? Yes. 1. [id number] ADMISSION PERFORMANCE: Supervision or touching assistance CODE: 04 DRESSING - UPPER BODY: DRESSING - UPPER BODY - STEP 1: Does the patient complete the activity by him/herself with no assistance (physical, verbal/nonverbal cueing, setup/clean-up)? No. DRESSING - UPPER BODY - STEP 2: Does the patient need only setup/clean-up assistance from one helper? No. DRESSING - UPPER BODY - STEP 3: Does the patient need only verbal/nonverbal cueing or touching/steadying/contact guard assistance fro m one helper? Yes. 1. [id number] ADMISSION PERFORMANCE: Supervision or touching assistance CODE: 04 DRESSING - LOWER BODY: DRESSING - LOWER BODY - STEP 1: Does the patient complete the activity by him/herself with no assistance (physical, verbal/nonverbal cueing, setup/clean-up)? No. DRESSING - LOWER BODY - STEP 2: Does the patient need only setup/clean-up assistance from one helper? No. DRESSING - LOWER BODY - STEP 3: Does the patient need only verbal/nonverbal cueing or touching/steadying/contact guard assistance fro m one helper? Yes. 1. [id number] ADMISSION PERFORMANCE: Supervision or touching assistance CODE: 04 PUTTING ON/TAKING OFF FOOTWEAR: FOOTWEAR - STEP 1: Does the patient complete the activity by him/herself with no assistance (physical, verbal/nonverbal cueing, setup/clean-up)? No. FOOTWEAR - STEP 2: Does the patient need only setup/clean-up assistance from one helper? No. FOOTWEAR - STEP 3: Does the patient need only verbal/nonverbal cueing or touching/steadying/contact guard assistance fro m one helper? Yes. 1. [id number] ADMISSION PERFORMANCE: Supervision or touching assistance CODE: 04 DOES THE PATIENT USE A WHEELCHAIR/SCOOTER? CODE: EXPR INDICATE THE TYPE OF WHEELCHAIR/SCOOTER USED: CODE: EXPR INDICATE THE TYPE OF WHEELCHAIR/SCOOTER USED: CODE: EXPR BLADDER AND BOWEL: CODE: EXPR CODE: EXPR SIGNATURE PANEL: The following modified sections: 1. [id number] Admission Performance, 1. [id number] Admission Performance, 1. [id number] Admission Performance, 1. [id number] Admission Performance, 1. LM7963c Admission Performance, 1. [id number] Admission Performance were [electronically] signed by ELYSSA Franklin on SatJan 26 2019 12:13:14 GMT-0600 (Central Standard Time)
[2019-01-26] MEDS: DULOXETINE 30 MG CAP PO SCH (19:53)
[2019-01-26] MEDS: MAGNESIUM OXIDE 400 MG TAB PO SCH (19:53)
[2019-01-26] MEDS: ALPRAZOLAM 0.5 MG TABLET PO PRN (19:54)
[2019-01-26] MEDS: HOME MED 1 EA UNK PO SCH (19:55)
[2019-01-27] MEDS: [UNRECOGNIZED DRUG - OTHER] PO SCH (06:30)
[2019-01-27] MEDS: PANTOPRAZOLE 40MG TABLET PO SCH ×2 (06:59→16:22)
[2019-01-27] MEDS: CALCIUM CARB 500MG/VIT D 200 IU TAB PO SCH (07:00)
[2019-01-27] MEDS: predniSONE 20 MG TAB PO SCH (07:00)
[2019-01-27] MEDS: BACLOFEN 10 MG TAB PO SCH ×2 (07:00→19:21)
[2019-01-27] MEDS: MAGNESIUM OXIDE 400 MG TAB PO SCH ×2 (07:00→19:20)
[2019-01-27] MEDS: GABAPENTIN 400 MG CAP PO SCH ×3 (07:00→19:20)
[2019-01-27] MEDS: HYDROXYCHLOROQUINE 200MG TAB PO SCH ×2 (07:00→19:21)
[2019-01-27] MEDS: FUROSEMIDE 20 MG TABLET PO SCH (07:01)
[2019-01-27] MEDS: POLYETHYL GLY 3350 17 GM/DOSE PO SCH (07:03)
[2019-01-27] MEDS: PROMOD 30 ML DOSE PO SCH ×2 (07:03→19:21)
[2019-01-27] MEDS: SENOSIDES 8.6 MG TAB PO SCH (07:03)
[2019-01-27] MEDS: CLOTRIMAZOLE 10 MG TROCHE PO SCH ×5 (07:03→19:21)
[2019-01-27] MEDS: HEPARIN 5000 UNIT/ML 1 ML VIAL SQ SCH ×2 (07:10→18:09)
[2019-01-27] MEDS ORDERED: LIDOCAINE 4% PATCH TOP SCH (08:00)
[2019-01-27] MEDS ORDERED: SENOSIDES 8.6 MG TAB PO PRN (09:51)
--- NOTE | 2019-01-27 11:02 | FAST ---
SHIFT START DATE/TIME: 01/27/2019 07:00 (SHIRRING TENDER) SHIFT END DATE/TIME: 01/27/2019 19:00 (SHIRRING TENDER) NAME HONG SPICER DATE OF : 1960 DATE OF ADMISSION: 01/23/2019 17:34 (SHIRRING TENDER) PHONE: AGE: 58 N# [id number] GENDER: Female ENCOUNTER PHYSICIAN: Dr. Garry Hodge M.D. 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 EATING: EATING - STEP 1: Does the patient complete the activity by him/herself with no assistance (physical, verbal/nonverbal cueing, setup/clean-up)? No. EATING - STEP 2: Does the patient need only setup/clean-up assistance from one helper? Yes. 1. [id number] ADMISSION PERFORMANCE: Setup or clean-up assistance CODE: 05 ORAL HYGIENE: ORAL HYGIENE - STEP 1: Does the patient complete the activity by him/herself with no assistance (physical, verbal/nonverbal cueing, setup/clean-up)? No. ORAL HYGIENE - STEP 2: Does the patient need only setup/clean-up assistance from one helper? No. ORAL HYGIENE - STEP 3: Does the patient need only verbal/nonverbal cueing or touching/steadying/contact guard assistance fro m one helper? Yes. 1. [id number] ADMISSION PERFORMANCE: Supervision or touching assistance CODE: 04 TOILETING HYGIENE: TOILETING HYGIENE - STEP 1: Does the patient complete the activity by him/herself with no assistance (physical, verbal/nonverbal cueing, setup/clean-up)? No. TOILETING HYGIENE - STEP 2: Does the patient need only setup/clean-up assistance from one helper? No. TOILETING HYGIENE - STEP 3: Does the patient need only verbal/nonverbal cueing or touching/steadying/contact guard assistance fro m one helper? Yes. 1. [id number] ADMISSION PERFORMANCE: Supervision or touching assistance CODE: 04 BATHING: Not assessed/no information CODE: - DRESSING - UPPER BODY: Not assessed/no information CODE: - DRESSING - LOWER BODY: Not assessed/no information CODE: - PUTTING ON/TAKING OFF FOOTWEAR: Not assessed/no information CODE: - ROLL LEFT AND RIGHT: ROLL LEFT AND RIGHT - STEP 1: Does the patient complete the activity by him/herself with no assistance (physical, verbal/nonverbal cueing, setup/clean-up)? No. ROLL LEFT AND RIGHT - STEP 2: Does the patient need only setup/clean-up assistance from one helper? No. ROLL LEFT AND RIGHT - STEP 3: Does the patient need only verbal/nonverbal cueing or touching/steadying/contact guard assistance fro m one helper? Yes. 1. [id number] ADMISSION PERFORMANCE: Supervision or touching assistance CODE: 04 SIT TO LYING: SIT TO LYING - STEP 1: Does the patient complete the activity by him/herself with no assistance (physical, verbal/nonverbal cueing, setup/clean-up)? No. SIT TO LYING - STEP 2: Does the patient need only setup/clean-up assistance from one helper? No. SIT TO LYING - STEP 3: Does the patient need only verbal/nonverbal cueing or touching/steadying/contact guard assistance fro m one helper? Yes. 1. [id number] ADMISSION PERFORMANCE: Supervision or touching assistance CODE: 04 LYING TO SITTING: LYING TO SITTING ON SIDE OF BED - STEP 1: Does the patient complete the activity by him/herself with no assistance (physical, verbal/nonverbal cueing, setup/clean-up)? No. LYING TO SITTING ON SIDE OF BED - STEP 2: Does the patient need only setup/clean-up assistance from one helper? No. LYING TO SITTING ON SIDE OF BED - STEP 3: Does the patient need only verbal/nonverbal cueing or touching/steadying/contact guard assistance fro m one helper? Yes. 1. [id number] ADMISSION PERFORMANCE: Supervision or touching assistance CODE: 04 SIT TO STAND: SIT TO STAND - STEP 1: Does the patient complete the activity by him/herself with no assistance (physical, verbal/nonverbal cueing, setup/clean-up)? No. SIT TO STAND - STEP 2: Does the patient need only setup/clean-up assistance from one helper? No. SIT TO STAND - STEP 3: Does the patient need only verbal/nonverbal cueing or touching/steadying/contact guard assistance fro m one helper? Yes. 1. [id number] ADMISSION PERFORMANCE: Supervision or touching assistance CODE: 04 TRANSFERS: BED, CHAIR: CHAIR/[id number]-UDEXG TRANSFER - STEP 1: Does the patient complete the activity by him/herself with no assistance (physical, verbal/nonverbal cueing, setup/clean-up)? No. CHAIR/[id number] TRANSFER - STEP 2: Does the patient need only setup/clean-up assistance from one helper? No. CHAIR/[id number]-AI-CDKPA TRANSFER - STEP 3: Does the patient need only verbal/nonverbal cueing or touching/steadying/contact guard assistance fro m one helper? Yes. 1. [id number] ADMISSION PERFORMANCE: Supervision or touching assistance CODE: 04 TRANSFER TOILET: TOILET TRANSFER - STEP 1: Does the patient complete the activity by him/herself with no assistance (physical, verbal/nonverbal cueing, setup/clean-up)? No. TOILET TRANSFER - STEP 2: Does the patient need only setup/clean-up assistance from one helper? No. TOILET TRANSFER - STEP 3: Does the patient need only verbal/nonverbal cueing or touching/steadying/contact guard assistance fro m one helper? Yes. 1. [id number] ADMISSION PERFORMANCE: Supervision or touching assistance CODE: 04 TRANSFERS: CAR: Not assessed/no information CODE: - WALK 10 FEET: Not assessed/no information CODE: - 1 STEP (CURB): Not assessed/no information CODE: - PICKING UP OBJECT: Not assessed/no information CODE: - DOES THE PATIENT USE A WHEELCHAIR/SCOOTER? CODE: EXPR WHEEL 50 FEET WITH TWO TURNS: Not assessed/no information CODE: - INDICATE THE TYPE OF WHEELCHAIR/SCOOTER USED: CODE: EXPR WHEEL 150 FEET: Not assessed/no information CODE: - INDICATE THE TYPE OF WHEELCHAIR/SCOOTER USED: CODE: EXPR BLADDER AND BOWEL: H350. BLADDER CONTINENCE (3-DAY ASSESSMENT PERIOD): Always continent (no documented incontinence) CODE: 0 H400. BOWEL CONTINENCE (3-DAY ASSESSMENT PERIOD): Always continent CODE: 0 SIGNATURE PANEL: The following modified sections: 1. [id number] Admission Performance, 1. [id number] Admission Performance, 1. VR3249T Admission Performance, 1. ST4426G Admission Performance, 1. EV2127L Admission Performance, 1. NI4151T Admission Performance, 1. LS9229I Admission Performance, 1. [id number] Admission Performance , 1. [id number] Admission Performance, 1. [id number] Admission Performance, Code, H350. Bladder Continence (3-day assessment period), H400. Bowel Continence (3-day assessment period) were [electronically] sig fabian by Andrew Rome on SatJan 27 2019 11:01:12 GMT-0600 (Central Standard Time)
[2019-01-27] MEDS: ALPRAZOLAM 0.5 MG TABLET PO PRN (19:20)
[2019-01-27] MEDS: DULOXETINE 30 MG CAP PO SCH (19:22)
[2019-01-27] MEDS: HOME MED 1 EA UNK PO SCH (19:22)
[2019-01-27] MEDS ORDERED: methylPREDNISolone 4 MG TAB PO SCH (21:00)
[2019-01-28] MEDS: [UNRECOGNIZED DRUG - OTHER] PO SCH (06:30)
[2019-01-28] MEDS: GABAPENTIN 400 MG CAP PO SCH ×3 (07:06→19:30)
[2019-01-28] MEDS: MAGNESIUM OXIDE 400 MG TAB PO SCH ×2 (07:06→19:29)
[2019-01-28] MEDS: CALCIUM CARB 500MG/VIT D 200 IU TAB PO SCH (07:06)
[2019-01-28] MEDS: HYDROXYCHLOROQUINE 200MG TAB PO SCH ×2 (07:07→19:30)
[2019-01-28] MEDS: predniSONE 20 MG TAB PO SCH (07:07)
[2019-01-28] MEDS: FUROSEMIDE 20 MG TABLET PO SCH (07:07)
[2019-01-28] MEDS: PANTOPRAZOLE 40MG TABLET PO SCH ×2 (07:07→17:35)
[2019-01-28] MEDS: BACLOFEN 10 MG TAB PO SCH ×2 (07:07→19:32)
[2019-01-28] MEDS: CLOTRIMAZOLE 10 MG TROCHE PO SCH ×5 (07:08→19:32)
[2019-01-28] MEDS: LIDOCAINE 4% PATCH TOP SCH (07:08)
[2019-01-28] MEDS: HEPARIN 5000 UNIT/ML 1 ML VIAL SQ SCH ×2 (07:36→19:09)
[2019-01-28] MEDS: PROMOD 30 ML DOSE PO SCH ×2 (08:00→19:30)
[2019-01-28] MEDS: OXYMORPHONE 10 MG PO PRN ×3 (12:18→23:30)
[2019-01-28] MEDS ORDERED: methylPREDNISolone 4 MG TAB PO SCH (12:30)
[2019-01-28] MEDS: POLYETHYL GLY 3350 17 GM/DOSE PO PRN (12:39)
--- NOTE | 2019-01-28 15:18 | FAST ---
ENCOUNTER DATE AND TIME: 01/28/2019 08:00 (CONGRESSIONAL AIDE) NAME HONG SPICER DATE OF : 1960 DATE OF ADMISSION: 01/23/2019 17:34 (CONGRESSIONAL AIDE) PHONE: AGE: 58 SSN# [id number] GENDER: Female ENCOUNTER PHYSICIAN: Dr. Garry Hodge M.D. 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 EATING: Not assessed/no information CODE: - ORAL HYGIENE: ORAL HYGIENE - STEP 1: Does the patient complete the activity by him/herself with no assistance (physical, verbal/nonverbal cueing, setup/clean-up)? Yes. 1. [id number] ADMISSION PERFORMANCE: Independent CODE: 06 TOILETING HYGIENE: TOILETING HYGIENE - STEP 1: Does the patient complete the activity by him/herself with no assistance (physical, verbal/nonverbal cueing, setup/clean-up)? No. TOILETING HYGIENE - STEP 2: Does the patient need only setup/clean-up assistance from one helper? No. TOILETING HYGIENE - STEP 3: Does the patient need only verbal/nonverbal cueing or touching/steadying/contact guard assistance fro m one helper? Yes. 1. [id number] ADMISSION PERFORMANCE: Supervision or touching assistance CODE: 04 BATHING: SHOWER/BATHE SELF - STEP 1: Does the patient complete the activity by him/herself with no assistance (physical, verbal/nonverbal cueing, setup/clean-up)? No. SHOWER/BATHE SELF - STEP 2: Does the patient need only setup/clean-up assistance from one helper? No. SHOWER/BATHE SELF - STEP 3: Does the patient need only verbal/nonverbal cueing or touching/steadying/contact guard assistance fro m one helper? Yes. 1. [id number] ADMISSION PERFORMANCE: Supervision or touching assistance CODE: 04 DRESSING - UPPER BODY: DRESSING - UPPER BODY - STEP 1: Does the patient complete the activity by him/herself with no assistance (physical, verbal/nonverbal cueing, setup/clean-up)? No. DRESSING - UPPER BODY - STEP 2: Does the patient need only setup/clean-up assistance from one helper? No. DRESSING - UPPER BODY - STEP 3: Does the patient need only verbal/nonverbal cueing or touching/steadying/contact guard assistance fro m one helper? Yes. 1. [id number] ADMISSION PERFORMANCE: Supervision or touching assistance CODE: 04 DRESSING - LOWER BODY: DRESSING - LOWER BODY - STEP 1: Does the patient complete the activity by him/herself with no assistance (physical, verbal/nonverbal cueing, setup/clean-up)? No. DRESSING - LOWER BODY - STEP 2: Does the patient need only setup/clean-up assistance from one helper? No. DRESSING - LOWER BODY - STEP 3: Does the patient need only verbal/nonverbal cueing or touching/steadying/contact guard assistance fro m one helper? Yes. 1. [id number] ADMISSION PERFORMANCE: Supervision or touching assistance CODE: 04 PUTTING ON/TAKING OFF FOOTWEAR: FOOTWEAR - STEP 1: Does the patient complete the activity by him/herself with no assistance (physical, verbal/nonverbal cueing, setup/clean-up)? No. FOOTWEAR - STEP 2: Does the patient need only setup/clean-up assistance from one helper? No. FOOTWEAR - STEP 3: Does the patient need only verbal/nonverbal cueing or touching/steadying/contact guard assistance fro m one helper? Yes. 1. [id number] ADMISSION PERFORMANCE: Supervision or touching assistance CODE: 04 DOES THE PATIENT USE A WHEELCHAIR/SCOOTER? CODE: EXPR INDICATE THE TYPE OF WHEELCHAIR/SCOOTER USED: CODE: EXPR INDICATE THE TYPE OF WHEELCHAIR/SCOOTER USED: CODE: EXPR BLADDER AND BOWEL: CODE: EXPR CODE: EXPR SIGNATURE PANEL: The following modified sections: 1. [id number] Admission Performance, 1. BT8138V Admission Performance, 1. OS5478x Admission Performance, 1. LV9202m Admission Performance, 1. EG3032v Admission Performance, 1. JF6488t Admission Performance, 1. [id number] Admission Performance were [electronically] signed by ELYSSA Loera on SatJan 28 2019 15:17:37 GMT-0600 (Central Standard Time)
--- NOTE | 2019-01-28 15:32 | RAD REPORT ---
EXAM DESCRIPTION: RAD - Abdomen 1 View ([facility]) - 01/28/2019 2:54 pm CLINICAL HISTORY: R/O Abdominal Hematoma Pain COMPARISON: No comparisons FINDINGS: The bowel gas pattern is non-obstructive. No evidence of free air or pneumatosis. Prominen t retained stool in the right colon. No suspicious calcifications. Hardware is present involving the lower lumbar spine. Cholecystectomy clips seen. IMPRESSION: Prominent retained stool in the right colon.
--- NOTE | 2019-01-28 18:06 | R.PN ---
ENCOUNTER DATE AND TIME: 01/28/2019 18:01 (FILEMAKER DEVELOPER) NAME HONG SPICER DATE OF : 1960 DATE OF ADMISSION: 01/23/2019 17:34 (FILEMAKER DEVELOPER) lumbar radiculopathyCHIEF COMPLAINT: Lumbar radiculopathy s/p surgical decompression. SUBJECTIVE: Pt denied any depression. Pt denied any Shortness of Breath. Ambulated 1500' and up and down 15 steps with independence. VITAL SIGNS Temperature: 97 F SBP/DBP: 108/68 Pulse: 95 Resp: 16 MEDICATION ALLERGIES: No Known Drug Allergies (NKDA) ENVIRONMENTAL ALLERGIES: - Substance Allergies None Known - Other Allergies None Known NURSING: - Shower allowing shower - Bladder care per protocol - Skin care per protocol ACTIVITIES OOB only with supervision THERAPIES: - Orthotics/Prosthetics Orthotic Evaluation. Splinting/Casting. - Dietary and Nutrition Adequate Nutrition. Nutritional Education. Nutritional Supplements. PHYSICAL EXAM - Gen Alert and awake Lying in bed No apparent distress Oriented to: person, time, and place - Vital Signs Vital signs stable, afebrile - Skin Back surgical sites have good hemostasis. Normacephalic - Eyes No abnormalities - ENMT No abnormalities - Neck No abnormalities - CVS RRR - Chest No abnormalities - Abd Soft - GI Non distended Deferred - No abnormalities - Ext No significant edema - MSK Unremarkable - Neuro No focal deficits - Psych No abnormalities ASSESSMENT: Pt. 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 was independent/mod-I in Locomotion, Endurance, Self-C are, Balance, Transfers Control, Safety Awareness, Social Cognition, Ambulation, Communication, and S afety Awareness and Self-Care; and she had good Sphincter Control.Currently, she has deficits of [place] motion, Balance, Safety Awareness, Ambulation, and pain limiting function.Pt. is now referred to [facility] for acute in-patient rehabilitation in order to maximize patient's func tional independence in activities of daily living, strength, ROM, and mobility.- Rehab Goal Patient has realistic goal of being discharged at assistance level 6-Julia to reside at Home with Fam diana/Relatives. MDM/PLAN: - Physical Therapy Gait dysfunction - to improve, our physical therapists will perform initial evaluation of pt's statu s upon admission and devise an individualized program for Gait Training, and Wheel Chair mobility Need for home safety evaluation - to improve, our physical therapists will perform initial evaluatio n of pt's status upon admission and devise an individualized program for Home Evaluation Need in caregiver upon discharge - to improve, our physical therapists will perform initial evaluati on of pt's status upon admission and devise an individualized program for Caregiver Training New precaution - to improve, our physical therapists will perform initial evaluation of pt's status upon admission and devise an individualized program for Patient precaution education Edema - to improve, our physical therapists will perform initial evaluation of pt's status upon admis curry and devise an individualized program for Elevation Training, and Lymphedema Therapy Poor balance - to improve, our physical therapists will perform initial evaluation of pt's status up on admission and devise an individualized program for Balance Training Weakness - to improve, our physical therapists will perform initial evaluation of pt's status upon a dmission and devise an individualized program for Aquatic Therapy, Neuromuscular Reeducation, and Str engthening Achieving independence - to improve, our physical therapists will perform initial evaluation of pt's status upon admission and devise an individualized program for Community Reintegration Activities - Occupational Therapy Need for client care coordinator - to improve, our occupation therapists will perform initial evaluation of pt's status upon admission and devise an individualized program for Caregiver Training Weakness - to improve, our occupation therapists will perform initial evaluation of pt's status upon admission and devise an individualized program for Aquatic Therapy, Balance, Endurance, UE ROM, and UE strengthening - Other See attached MAR (Medication Administration Record) - Diet Type Continue Regular - Diet - Liquid Texture Continue Regular - Tube Feed Continue N/A - Bladder care per protocol - Skin care per protocol - Diet - Solid Texture Continue Regular - Shower allowing shower FUNCTIONAL STATUS: UPDATED AT WEEKLY TEAM CONFERENCE - Bladder Same accident frequency: 7-Ind - No accidents in the past 7 days - Bowel Same accident frequency: 7-Ind - No accidents in the past 7 days - Walking Same score based on distance walked: 1(<=50ft) - Wheelchair Same score based on distance traveled: 1(<=50ft) FUNCTIONAL STATUS: - Self-Care A. Eating Ind B. Grooming Ind C. Bathing sup D. Dressing - Upper Julia E. Dressing - Lower sup F. Toileting Maria Guadalupe - Sphincter Control G. Bladder control Julia H. Bowel control Julia - Transfers Control I. Bed/Chair/Wheelchair Julia J. Toilet Julia K. Tub/Shower sup - Locomotion L. Walk/Wheelchair (W) Ind M. Stairs Ind - Communication N. Comprehension (B) Ind O. Expression (B) Ind - Social Cognition P. Social Interaction Ind Q. Problem Solving Ind R. Memory Ind - Endurance Good - Balance Good - Safety Awareness Good QI SCORES: - Self-Care A. Eating 06-Independent B. Oral hygiene 05-Setup or clean-up assistance C. Toileting hygiene 05-Setup or clean-up assistance E. Shower/bathe self 88-Not attempted due to medical condition or safety concerns F. Upper body dressing 04-Supervision or touching assistance G. Lower body dressing 03-Partial/moderate assistance H. Putting on/taking off footwear 88-Not attempted due to medical condition or safety concerns - Mobility A. Roll left and right 06-Independent B. Sit to lying 04-Supervision or touching assistance C. Lying to sitting on side of bed 05-Setup or clean-up assistance D. Sit to stand 04-Supervision or touching assistance E. Chair/kli-bu-nndxp transfer 04-Supervision or touching assistance F. Toilet transfer 04-Supervision or touching assistance G. Car transfer 88-Not attempted due to medical condition or safety concerns I. Walk 10 feet 04-Supervision or touching assistance J. Walk 50 feet with two turns 88-Not attempted due to medical condition or safety concerns K. Walk 150 feet 88-Not attempted due to medical condition or safety concerns L. Walking 10 feet on uneven surfaces 88-Not attempted due to medical condition or safety concerns M. 1 step (curb) 88-Not attempted due to medical condition or safety concerns N. 4 steps 88-Not attempted due to medical condition or safety concerns O. 12 steps 88-Not attempted due to medical condition or safety concerns P. Picking up object 88-Not attempted due to medical condition or safety concerns R. Wheel 50 feet with two turns 88-Not attempted due to medical condition or safety concerns S. Wheel 150 feet 88-Not attempted due to medical condition or safety concerns - Bladder and Bowel Bladder continence 4-Always incontinent Bowel continence 3-Always incontinent - Endurance Fair - Balance Fair - Safety Awareness Fair CURRENT [facility]. DEFICITS: Endurance, Balance, Safety Awareness, Self-Care, and Mobility SIGNATURE PANEL: (FILEMAKER DEVELOPER)
[2019-01-28] MEDS: DULOXETINE 30 MG CAP PO SCH (19:30)
[2019-01-28] MEDS: ALPRAZOLAM 0.5 MG TABLET PO PRN (19:40)
[2019-01-28] MEDS: HOME MED 1 EA UNK PO SCH (19:42)
[2019-01-29] MEDS: OXYMORPHONE 10 MG PO PRN ×4 (05:36→23:13)
[2019-01-29] MEDS: [UNRECOGNIZED DRUG - OTHER] PO SCH (06:30)
[2019-01-29] MEDS: HEPARIN 5000 UNIT/ML 1 ML VIAL SQ SCH ×2 (07:09→18:50)
[2019-01-29] MEDS: LIDOCAINE 4% PATCH TOP SCH (07:17)
[2019-01-29] MEDS: ALPRAZOLAM 0.5 MG TABLET PO PRN ×2 (07:18→20:50)
[2019-01-29] MEDS: FUROSEMIDE 20 MG TABLET PO SCH (07:18)
[2019-01-29] MEDS: HYDROXYCHLOROQUINE 200MG TAB PO SCH ×2 (07:19→19:28)
[2019-01-29] MEDS: CLOTRIMAZOLE 10 MG TROCHE PO SCH ×7 (07:19→20:51)
[2019-01-29] MEDS: CALCIUM CARB 500MG/VIT D 200 IU TAB PO SCH (07:20)
[2019-01-29] MEDS: PANTOPRAZOLE 40MG TABLET PO SCH ×2 (07:20→17:14)
[2019-01-29] MEDS: BACLOFEN 10 MG TAB PO SCH ×2 (07:20→19:28)
[2019-01-29] MEDS: GABAPENTIN 400 MG CAP PO SCH ×3 (07:20→20:49)
[2019-01-29] MEDS: MAGNESIUM OXIDE 400 MG TAB PO SCH ×2 (07:20→19:28)
[2019-01-29] MEDS: PROMOD 30 ML DOSE PO SCH ×2 (07:22→19:28)
[2019-01-29] MEDS: predniSONE 20 MG TAB PO SCH (07:22)
[2019-01-29] MEDS ORDERED: BACLOFEN 10 MG TAB PO ONE (11:00)
--- NOTE | 2019-01-29 16:51 | R.PN ---
ENCOUNTER DATE AND TIME: 01/29/2019 16:47 (OFFSET PRESS OPERATOR APPRENTICE) NAME HONG SPICER DATE OF : 1960 DATE OF ADMISSION: 01/23/2019 17:34 (OFFSET PRESS OPERATOR APPRENTICE) lumbar radiculopathyCHIEF COMPLAINT: Lumbar radiculopathy s/p surgical decompression. SUBJECTIVE: Pt denied any depression. Pt denied any Shortness of Breath. Ambulated 1500' and up and down 15 steps with independence. VITAL SIGNS Temperature: 97 F SBP/DBP: 115/68 Pulse: 92 Resp: 16 MEDICATION ALLERGIES: No Known Drug Allergies (NKDA) ENVIRONMENTAL ALLERGIES: - Substance Allergies None Known - Other Allergies None Known NURSING: - Shower allowing shower - Bladder care per protocol - Skin care per protocol ACTIVITIES OOB only with supervision THERAPIES: - Orthotics/Prosthetics Orthotic Evaluation. Splinting/Casting. - Dietary and Nutrition Adequate Nutrition. Nutritional Education. Nutritional Supplements. PHYSICAL EXAM - Gen Alert and awake Lying in bed No apparent distress Oriented to: person, time, and place - Vital Signs Vital signs stable, afebrile - Skin Back surgical sites have good hemostasis. Normacephalic - Eyes No abnormalities - ENMT No abnormalities - Neck No abnormalities - CVS RRR - Chest No abnormalities - Abd Soft - GI Non distended Deferred - No abnormalities - Ext No significant edema - MSK Unremarkable - Neuro No focal deficits - Psych No abnormalities ASSESSMENT: Pt. is a 58 yo Right-handed white female.On 01/19/2019 she was admitted to [facility] with diagnosis l umbar radiculopathy.Her impairment category is Spinal Cord Dysfunction 04 - Other Non-traumatic Spin al Cord Dysfunction (04.130).Pre-morbidly, Pt. was independent/mod-I in Locomotion, Endurance, Self-C are, Balance, Transfers Control, Safety Awareness, Social Cognition, Ambulation, Communication, and S afety Awareness and Self-Care; and she had good Sphincter Control.Currently, she has deficits of [place] motion, Balance, Safety Awareness, Ambulation, and pain limiting function.Pt. is now referred to [facility] for acute in-patient rehabilitation in order to maximize patient's func tional independence in activities of daily living, strength, ROM, and mobility.- Rehab Goal Patient has realistic goal of being discharged at assistance level 6-Julia to reside at Home with Fam diana/Relatives. MDM/PLAN: - Physical Therapy Gait dysfunction - to improve, our physical therapists will perform initial evaluation of pt's statu s upon admission and devise an individualized program for Gait Training, and Wheel Chair mobility Need for home safety evaluation - to improve, our physical therapists will perform initial evaluatio n of pt's status upon admission and devise an individualized program for Home Evaluation Need in caregiver upon discharge - to improve, our physical therapists will perform initial evaluati on of pt's status upon admission and devise an individualized program for Caregiver Training New precaution - to improve, our physical therapists will perform initial evaluation of pt's status upon admission and devise an individualized program for Patient precaution education Edema - to improve, our physical therapists will perform initial evaluation of pt's status upon admi ssion and devise an individualized program for Elevation Training, and Lymphedema Therapy Poor balance - to improve, our physical therapists will perform initial evaluation of pt's status up on admission and devise an individualized program for Balance Training Weakness - to improve, our physical therapists will perform initial evaluation of pt's status upon a dmission and devise an individualized program for Aquatic Therapy, Neuromuscular Reeducation, and Str engthening Achieving independence - to improve, our physical therapists will perform initial evaluation of pt's status upon admission and devise an individualized program for Community Reintegration Activities - Occupational Therapy Need for cardiac care unit nurse - to improve, our occupation therapists will perform initial evaluation of pt's status upon admission and devise an individualized program for Caregiver Training Weakness - to improve, our occupation therapists will perform initial evaluation of pt's status upon admission and devise an individualized program for Aquatic Therapy, Balance, Endurance, UE ROM, and UE strengthening - Other See attached MAR (Medication Administration Record) - Diet Type Continue Regular - Diet - Liquid Texture Continue Regular - Tube Feed Continue N/A - Bladder care per protocol - Skin care per protocol - Diet - Solid Texture Continue Regular - Shower allowing shower FUNCTIONAL STATUS: UPDATED AT WEEKLY TEAM CONFERENCE - Bladder Same accident frequency: 7-Ind - No accidents in the past 7 days - Bowel Same accident frequency: 7-Ind - No accidents in the past 7 days - Walking Same score based on distance walked: 1(<=50ft) - Wheelchair Same score based on distance traveled: 1(<=50ft) FUNCTIONAL STATUS: - Self-Care A. Eating Ind B. Grooming Ind C. Bathing sup D. Dressing - Upper Julia E. Dressing - Lower sup F. Toileting Maria Guadalupe - Sphincter Control G. Bladder control Julia H. Bowel control Julia - Transfers Control I. Bed/Chair/Wheelchair Julia J. Toilet Julia K. Tub/Shower sup - Locomotion L. Walk/Wheelchair (W) Ind M. Stairs Ind - Communication N. Comprehension (B) Ind O. Expression (B) Ind - Social Cognition P. Social Interaction Ind Q. Problem Solving Ind R. Memory Ind - Endurance Good - Balance Good - Safety Awareness Good QI SCORES: - Self-Care A. Eating 06-Independent B. Oral hygiene 05-Setup or clean-up assistance C. Toileting hygiene 05-Setup or clean-up assistance E. Shower/bathe self 88-Not attempted due to medical condition or safety concerns F. Upper body dressing 04-Supervision or touching assistance G. Lower body dressing 03-Partial/moderate assistance H. Putting on/taking off footwear 88-Not attempted due to medical condition or safety concerns - Mobility A. Roll left and right 06-Independent B. Sit to lying 04-Supervision or touching assistance C. Lying to sitting on side of bed 05-Setup or clean-up assistance D. Sit to stand 04-Supervision or touching assistance E. Chair/qay-ok-atkwd transfer 04-Supervision or touching assistance F. Toilet transfer 04-Supervision or touching assistance G. Car transfer 88-Not attempted due to medical condition or safety concerns I. Walk 10 feet 04-Supervision or touching assistance J. Walk 50 feet with two turns 88-Not attempted due to medical condition or safety concerns K. Walk 150 feet 88-Not attempted due to medical condition or safety concerns L. Walking 10 feet on uneven surfaces 88-Not attempted due to medical condition or safety concerns M. 1 step (curb) 88-Not attempted due to medical condition or safety concerns N. 4 steps 88-Not attempted due to medical condition or safety concerns O. 12 steps 88-Not attempted due to medical condition or safety concerns P. Picking up object 88-Not attempted due to medical condition or safety concerns R. Wheel 50 feet with two turns 88-Not attempted due to medical condition or safety concerns S. Wheel 150 feet 88-Not attempted due to medical condition or safety concerns - Bladder and Bowel Bladder continence 4-Always incontinent Bowel continence 3-Always incontinent - Endurance Fair - Balance Fair - Safety Awareness Fair CURRENT [facility]. DEFICITS: Endurance, Balance, Safety Awareness, Self-Care, and Mobility SIGNATURE PANEL: (OFFSET PRESS OPERATOR APPRENTICE)
[2019-01-29] MEDS: DULOXETINE 30 MG CAP PO SCH (20:49)
[2019-01-29] MEDS: HOME MED 1 EA UNK PO SCH (20:50)
[2019-01-30] MEDS: OXYMORPHONE 10 MG PO PRN ×3 (05:07→17:43)
[2019-01-30 06:21] LABS: Absolute Lymphocytes (CBC) 2.2 K/uL (0.7-4.9); Basophils % 0.5 % (0-1.3); Hematocrit 35.1 % (36.0-45.0); Lymphocytes % 18.9 % (15.3-44.8); MPV 8.6 fL (7.6-11.3); RBC Red Blood Cell Count 4.03 M/uL (3.86-4.86)
[2019-01-30 06:27] LABS: Albumin 2.8 g/dL (3.4-5.0); BUN Blood Urea Nitrogen 17 mg/dL (7-18); Bicarbonate 32 mmol/L (21-32); Glucose Level 112 mg/dL (74-106); Magnesium 2.5 mg/dL (1.8-2.4); Potassium 3.6 mmol/L (3.5-5.1); Prealbumin 27.1 mg/dL (20-40); Sodium Level 141 mmol/L (136-145)
[2019-01-30] MEDS: [UNRECOGNIZED DRUG - OTHER] PO SCH (06:30)
[2019-01-30] MEDS: BACLOFEN 10 MG TAB PO SCH ×3 (06:36→20:49)
[2019-01-30] MEDS: GABAPENTIN 400 MG CAP PO SCH ×3 (06:41→20:33)
[2019-01-30] MEDS: HEPARIN 5000 UNIT/ML 1 ML VIAL SQ SCH ×2 (07:45→18:22)
[2019-01-30] MEDS: PROMOD 30 ML DOSE PO SCH ×2 (08:00→20:00)
[2019-01-30] MEDS: CLOTRIMAZOLE 10 MG TROCHE PO SCH ×5 (08:00→20:34)
[2019-01-30] MEDS: FUROSEMIDE 20 MG TABLET PO SCH (08:53)
[2019-01-30] MEDS: MAGNESIUM OXIDE 400 MG TAB PO SCH ×2 (08:54→20:33)
[2019-01-30] MEDS: PANTOPRAZOLE 40MG TABLET PO SCH ×2 (08:54→16:00)
[2019-01-30] MEDS: CALCIUM CARB 500MG/VIT D 200 IU TAB PO SCH (08:54)
[2019-01-30] MEDS: predniSONE 20 MG TAB PO SCH (08:54)
[2019-01-30] MEDS: LIDOCAINE 4% PATCH TOP SCH (08:55)
[2019-01-30] MEDS: HYDROXYCHLOROQUINE 200MG TAB PO SCH ×2 (08:57→20:34)
[2019-01-30] MEDS: ALPRAZOLAM 0.5 MG TABLET PO PRN ×2 (08:59→18:50)
[2019-01-30 09:29] LABS: Platelet Estimate ADEQ
[2019-01-30 09:30] LABS: Anisocytosis 1+; Blood Morphology Comment NOTED (NOT SEEN)
--- NOTE | 2019-01-30 10:16 | P.RH.PN ---
Estimated Length of Stay: 17 Expected Discharge Date: 02/03/19 Discharge Disposition Plan: Home Family Support: Yes [facility] Goal: Mobility, Transfers, Self Care Vital Signs: Last Vital Signs Temp 97 F 01/29/19 18:46 Pulse 90 01/30/19 08:53 Resp 16 01/29/19 18:46 BP 115/61 01/30/19 08:53 Pulse Ox 100 01/29/19 18:46 Laboratory: Laboratory Last Values WBC 11.5 K/uL (4.3-10.9) H 01/30/19 05:53 RBC 4.03 M/uL (3.86-4.86) 01/30/19 05:53 Hgb 11.3 g/dL (12.0-15.0) L 01/30/19 05:53 Hct 35.1 % (36.0-45.0) L 01/30/19 05:53 MCV 87.0 fL (80-100) 01/30/19 05:53 MCH 28.1 pg (27.0-35.0) 01/30/19 05:53 MCHC 32.3 g/dL (32.0-36.0) 01/30/19 05:53 RDW 14.6 % (12.1-15.2) 01/30/19 05:53 Plt Count 284 K/uL (152-406) D 01/30/19 05:53 MPV 8.6 fL (7.6-11.3) 01/30/19 05:53 Neutrophils % 68.1 % (41.7-73.7) 01/30/19 05:53 Lymphocytes % 18.9 % (15.3-44.8) 01/30/19 05:53 Monocytes % 10.2 % (3.3-12.3) 01/30/19 05:53 Eosinophils % 2.3 % (0-4.4) 01/30/19 05:53 Basophils % 0.5 % (0-1.3) 01/30/19 05:53 Absolute Neutrophils 7.8 K/uL (1.8-8.0) 01/30/19 05:53 Segmented Neutrophils 68 % (40-80) 01/30/19 05:53 Absolute Lymphocytes 2.2 K/uL (0.7-4.9) 01/30/19 05:53 Lymphocytes 21 % (15-42) 01/30/19 05:53 Monocytes 7 % (0-10) 01/30/19 05:53 Absolute Monocytes 1.2 K/uL (0.1-1.3) 01/30/19 05:53 Eosinophils 3 % (0-3) 01/30/19 05:53 Absolute Eosinophils 0.3 K/uL (0-0.5) 01/30/19 05:53 Absolute Basophils 0.1 K/uL (0-0.5) 01/30/19 05:53 Myelocytes 1 % (0-0) H 01/30/19 05:53 Anisocytosis 1+ 01/30/19 05:53 Morphology Comment Noted (NOT SEEN) 01/30/19 05:53 Sodium 141 mmol/L (136-145) 01/30/19 05:53 Potassium 3.6 mmol/L (3.5-5.1) 01/30/19 05:53 Chloride 107 mmol/L (98-107) 01/30/19 05:53 Carbon Dioxide 32 mmol/L (21-32) 01/30/19 05:53 BUN 17 mg/dL (7-18) 01/30/19 05:53 Creatinine 0.59 mg/dL (0.55-1.3) 01/30/19 05:53 Estimated GFR > 90 mL/min (=/>90) 01/30/19 05:53 Glucose 112 mg/dL (74-106) H 01/30/19 05:53 Calcium 8.3 mg/dL (8.5-10.1) L 01/30/19 05:53 Magnesium 2.5 mg/dL (1.8-2.4) H 01/30/19 05:53 Albumin 2.8 g/dL (3.4-5.0) L 01/30/19 05:53 Prealbumin 27.1 mg/dL (20-40) 01/30/19 05:53 Urine Color Yellow 01/24/19 08:10 Urine Appearance Clear 01/24/19 08:10 Urine pH 7.5 (5.0-7.0) H 01/24/19 08:10 Ur Specific [place] 1.015 (1.005-1.030) 01/24/19 08:10 Urine Ketones Negative (NEG) 01/24/19 08:10 Urine Blood Negative (NEG) 01/24/19 08:10 Urine Nitrite Negative (NEG) 01/24/19 08:10 Urine Bilirubin Negative (NEG) 01/24/19 08:10 Urine Urobilinogen 1.0 mg/dL (0.2-1.0) 01/24/19 08:10 Ur Leukocyte Esterase 1+ (NEG) H 01/24/19 08:10 Urine RBC <5 /HPF (NONE SEEN) 01/24/19 08:10 Urine WBC 20-50 /HPF (<5) H 01/24/19 08:10 Ur Squamous Epith Cells 10-20 /HPF (NONE SEEN) H 01/24/19 08:10 Urine Bacteria <20 /HPF (<20) 01/24/19 08:10 Urine Culture Reflexed Not needed 01/24/19 08:10 Urine Glucose Negative (NEG) 01/24/19 08:10 Urine Total Protein Negative (NEG) 01/24/19 08:10 Weight: 148 lb 11.2 oz Wound Present: No Closed Surgical Incision Present: Yes Negative Pressure Wound Therapy Present: No Physician Update: She has significant lower back pain after pulling forward with her hands. When pain is managed she is independent ambulating. Labs are stable. Medical Issues: Patient is always continent with bladder and bowel Summary: Patient's care plan and senior care goals have been reviewed and revised as necessary. Please see the Rehabilitation Signature page for all necessary signatures.
[2019-01-30] MEDS ORDERED: BACLOFEN 10 MG TAB PO ONE (12:00)
--- NOTE | 2019-01-30 15:03 | FAST ---
ENCOUNTER DATE AND TIME: 01/30/2019 08:00 (CHANNEL ACCOUNT MANAGER) NAME HONG SPICER DATE OF : 1960 DATE OF ADMISSION: 01/23/2019 17:34 (CHANNEL ACCOUNT MANAGER) PHONE: AGE: 58 N# [id number] GENDER: Female ENCOUNTER PHYSICIAN: Dr. Garry Hodge M.D. 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 EATING: Not assessed/no information CODE: - ORAL HYGIENE: ORAL HYGIENE - STEP 1: Does the patient complete the activity by him/herself with no assistance (physical, verbal/nonverbal cueing, setup/clean-up)? Yes. 1. [id number] ADMISSION PERFORMANCE: Independent CODE: 06 TOILETING HYGIENE: TOILETING HYGIENE - STEP 1: Does the patient complete the activity by him/herself with no assistance (physical, verbal/nonverbal cueing, setup/clean-up)? Yes. 1. [id number] ADMISSION PERFORMANCE: Independent CODE: 06 BATHING: SHOWER/BATHE SELF - STEP 1: Does the patient complete the activity by him/herself with no assistance (physical, verbal/nonverbal cueing, setup/clean-up)? Yes. 1. [id number] ADMISSION PERFORMANCE: Independent CODE: 06 DRESSING - UPPER BODY: DRESSING - UPPER BODY - STEP 1: Does the patient complete the activity by him/herself with no assistance (physical, verbal/nonverbal cueing, setup/clean-up)? Yes. 1. [id number] ADMISSION PERFORMANCE: Independent CODE: 06 DRESSING - LOWER BODY: DRESSING - LOWER BODY - STEP 1: Does the patient complete the activity by him/herself with no assistance (physical, verbal/nonverbal cueing, setup/clean-up)? Yes. 1. [id number] ADMISSION PERFORMANCE: Independent CODE: 06 PUTTING ON/TAKING OFF FOOTWEAR: FOOTWEAR - STEP 1: Does the patient complete the activity by him/herself with no assistance (physical, verbal/nonverbal cueing, setup/clean-up)? Yes. 1. [id number] ADMISSION PERFORMANCE: Independent CODE: 06 DOES THE PATIENT USE A WHEELCHAIR/SCOOTER? CODE: EXPR INDICATE THE TYPE OF WHEELCHAIR/SCOOTER USED: CODE: EXPR INDICATE THE TYPE OF WHEELCHAIR/SCOOTER USED: CODE: EXPR BLADDER AND BOWEL: CODE: EXPR CODE: EXPR SIGNATURE PANEL: The following modified sections: 1. [id number] Admission Performance, 1. [id number] Admission Performance, 1. [id number] Admission Performance, 1. [id number] Admission Performance, 1. [id number] Admission Performance, 1. [id number] Admission Performance were [electronically] signed by ELYSSA Franklin on SatJan 30 2019 15:02:09 GMT-0600 (Central Standard Time)
[2019-01-30] MEDS: DULOXETINE 30 MG CAP PO SCH (20:33)
[2019-01-30] MEDS: HOME MED 1 EA UNK PO SCH (20:35)
[2019-01-30] MEDS: POLYETHYL GLY 3350 17 GM/DOSE PO PRN (20:48)
[2019-01-31] MEDS: OXYMORPHONE 10 MG PO PRN ×4 (04:18→22:24)
[2019-01-31] MEDS: BACLOFEN 10 MG TAB PO SCH ×3 (04:22→18:55)
[2019-01-31 05:48] VITALS: BMI 27.9
[2019-01-31] MEDS: HEPARIN 5000 UNIT/ML 1 ML VIAL SQ SCH ×2 (06:17→18:13)
[2019-01-31] MEDS: [UNRECOGNIZED DRUG - OTHER] PO SCH (06:30)
[2019-01-31] MEDS: GABAPENTIN 400 MG CAP PO SCH ×3 (07:07→18:55)
[2019-01-31] MEDS: MAGNESIUM OXIDE 400 MG TAB PO SCH ×2 (07:07→18:59)
[2019-01-31] MEDS: predniSONE 20 MG TAB PO SCH (07:08)
[2019-01-31] MEDS: PANTOPRAZOLE 40MG TABLET PO SCH ×2 (07:08→16:47)
[2019-01-31] MEDS: FUROSEMIDE 20 MG TABLET PO SCH (07:08)
[2019-01-31] MEDS: ALPRAZOLAM 0.5 MG TABLET PO PRN (07:09)
[2019-01-31] MEDS: HYDROXYCHLOROQUINE 200MG TAB PO SCH ×2 (07:09→18:59)
[2019-01-31] MEDS: CALCIUM CARB 500MG/VIT D 200 IU TAB PO SCH (07:09)
[2019-01-31] MEDS: LIDOCAINE 4% PATCH TOP SCH (07:10)
[2019-01-31] MEDS: CLOTRIMAZOLE 10 MG TROCHE PO SCH ×6 (07:10→21:00)
[2019-01-31] MEDS: PROMOD 30 ML DOSE PO SCH ×2 (07:10→18:59)
[2019-01-31] MEDS: DULOXETINE 30 MG CAP PO SCH (18:58)
[2019-01-31] MEDS: HOME MED 1 EA UNK PO SCH (18:59)
[2019-02-01] MEDS: OXYMORPHONE 10 MG PO PRN ×3 (04:03→16:32)
[2019-02-01] MEDS: HEPARIN 5000 UNIT/ML 1 ML VIAL SQ SCH ×2 (05:57→18:05)
[2019-02-01] MEDS: LIDOCAINE 4% PATCH TOP SCH (06:19)
[2019-02-01] MEDS: [UNRECOGNIZED DRUG - OTHER] PO SCH (06:19)
[2019-02-01] MEDS: CLOTRIMAZOLE 10 MG TROCHE PO SCH ×6 (06:20→21:00)
[2019-02-01] MEDS: PROMOD 30 ML DOSE PO SCH ×2 (07:10→19:11)
[2019-02-01] MEDS: GABAPENTIN 400 MG CAP PO SCH ×3 (07:11→19:09)
[2019-02-01] MEDS: HYDROXYCHLOROQUINE 200MG TAB PO SCH ×2 (07:11→19:10)
[2019-02-01] MEDS: MAGNESIUM OXIDE 400 MG TAB PO SCH ×2 (07:11→19:11)
[2019-02-01] MEDS: BACLOFEN 10 MG TAB PO SCH ×3 (07:12→19:12)
[2019-02-01] MEDS: predniSONE 20 MG TAB PO SCH (07:12)
[2019-02-01] MEDS: CALCIUM CARB 500MG/VIT D 200 IU TAB PO SCH (07:12)
[2019-02-01] MEDS: FUROSEMIDE 20 MG TABLET PO SCH (07:12)
[2019-02-01] MEDS: PANTOPRAZOLE 40MG TABLET PO SCH ×2 (07:12→16:32)
[2019-02-01] MEDS: PROMETHAZINE 25 MG TABLET PO PRN ×2 (07:16→16:43)
[2019-02-01] MEDS: ACETAMINOPHEN 500 MG TAB PO PRN ×2 (09:16→19:11)
[2019-02-01] MEDS: ALPRAZOLAM 0.5 MG TABLET PO PRN ×2 (11:48→22:32)
[2019-02-01] MEDS: DULOXETINE 30 MG CAP PO SCH (19:10)
[2019-02-01] MEDS: HOME MED 1 EA UNK PO SCH (19:12)
[2019-02-02] MEDS: BACLOFEN 10 MG TAB PO SCH ×3 (06:00→21:06)
[2019-02-02] MEDS ORDERED: RISEDRONATE SODIUM 35 MG TAB PO SCH (06:00)
[2019-02-02] MEDS: OXYMORPHONE 10 MG PO PRN ×3 (06:00→18:37)
[2019-02-02] MEDS: [UNRECOGNIZED DRUG - OTHER] PO SCH (06:30)
[2019-02-02] MEDS: LIDOCAINE 4% PATCH TOP SCH ×2 (07:16→08:00)
[2019-02-02] MEDS: PANTOPRAZOLE 40MG TABLET PO SCH ×2 (07:16→16:22)
[2019-02-02] MEDS: CALCIUM CARB 500MG/VIT D 200 IU TAB PO SCH (07:17)
[2019-02-02] MEDS: GABAPENTIN 400 MG CAP PO SCH ×3 (07:17→21:06)
[2019-02-02] MEDS: HYDROXYCHLOROQUINE 200MG TAB PO SCH ×2 (07:17→21:06)
[2019-02-02] MEDS: MAGNESIUM OXIDE 400 MG TAB PO SCH ×2 (07:17→21:06)
[2019-02-02] MEDS: predniSONE 20 MG TAB PO SCH (07:18)
[2019-02-02] MEDS: PROMOD 30 ML DOSE PO SCH ×2 (07:18→20:00)
[2019-02-02] MEDS: CLOTRIMAZOLE 10 MG TROCHE PO SCH ×5 (07:18→21:00)
[2019-02-02] MEDS: FUROSEMIDE 20 MG TABLET PO SCH (07:18)
[2019-02-02] MEDS: HEPARIN 5000 UNIT/ML 1 ML VIAL SQ SCH ×2 (08:00→20:30)
--- NOTE | 2019-02-02 08:48 | FAST ---
ENCOUNTER DATE AND TIME: 01/29/2019 08:00 (PRODUCT MARKETING DIRECTOR) NAME HONG SPICER DATE OF : 1960 DATE OF ADMISSION: 01/23/2019 17:34 (PRODUCT MARKETING DIRECTOR) PHONE: AGE: 58 N# [id number] GENDER: Female ENCOUNTER PHYSICIAN: Dr. Garry Hodge M.D. 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 ROLL LEFT AND RIGHT: ROLL LEFT AND RIGHT - STEP 1: Does the patient complete the activity by him/herself with no assistance (physical, verbal/nonverbal cueing, setup/clean-up)? Yes. 1. [id number] ADMISSION PERFORMANCE: Independent CODE: 06 SIT TO LYING: SIT TO LYING - STEP 1: Does the patient complete the activity by him/herself with no assistance (physical, verbal/nonverbal cueing, setup/clean-up)? Yes. 1. [id number] ADMISSION PERFORMANCE: Independent CODE: 06 LYING TO SITTING: LYING TO SITTING ON SIDE OF BED - STEP 1: Does the patient complete the activity by him/herself with no assistance (physical, verbal/nonverbal cueing, setup/clean-up)? Yes. 1. [id number] ADMISSION PERFORMANCE: Independent CODE: 06 SIT TO STAND: SIT TO STAND - STEP 1: Does the patient complete the activity by him/herself with no assistance (physical, verbal/nonverbal cueing, setup/clean-up)? Yes. 1. [id number] ADMISSION PERFORMANCE: Independent CODE: 06 TRANSFERS: BED, CHAIR: CHAIR/HDD-PN-AUNGA TRANSFER - STEP 1: Does the patient complete the activity by him/herself with no assistance (physical, verbal/nonverbal cueing, setup/clean-up)? Yes. 1. [id number] ADMISSION PERFORMANCE: Independent CODE: 06 TRANSFER TOILET: TOILET TRANSFER - STEP 1: Does the patient complete the activity by him/herself with no assistance (physical, verbal/nonverbal cueing, setup/clean-up)? Yes. 1. [id number] ADMISSION PERFORMANCE: Independent CODE: 06 TRANSFERS: CAR: Not attempted due to environmental limitations (e.g., lack of equipment, weather constraints) CODE: 10 WALK 10 FEET: WALK 10 FEET - STEP 1: Does the patient complete the activity by him/herself with no assistance (physical, verbal/nonverbal cueing, setup/clean-up)? Yes. 1. [id number] ADMISSION PERFORMANCE: Independent CODE: 06 WALK 50 FEET: WALK 50 FEET - STEP 1: Does the patient complete the activity by him/herself with no assistance (physical, verbal/nonverbal cueing, setup/clean-up)? Yes. 1. [id number] ADMISSION PERFORMANCE: Independent CODE: 06 WALK 150 FEET: WALK 150 FEET - STEP 1: Does the patient complete the activity by him/herself with no assistance (physical, verbal/nonverbal cueing, setup/clean-up)? Yes. 1. [id number] ADMISSION PERFORMANCE: Independent CODE: 06 WALK 10 FEET UNEVEN: WALKING 10 FEET ON UNEVEN SURFACES - STEP 1: Does the patient complete the activity by him/herself with no assistance (physical, verbal/nonverbal cueing, setup/clean-up)? Yes. 1. [id number] ADMISSION PERFORMANCE: Independent CODE: 06 1 STEP (CURB): 1 STEP CURB - STEP 1: Does the patient complete the activity by him/herself with no assistance (physical, verbal/nonverbal cueing, setup/clean-up)? Yes. 1. [id number] ADMISSION PERFORMANCE: Independent CODE: 06 4 STEPS: 4 STEPS - STEP 1: Does the patient complete the activity by him/herself with no assistance (physical, verbal/nonverbal cueing, setup/clean-up)? Yes. 1. [id number] ADMISSION PERFORMANCE: Independent CODE: 06 12 STEPS: 12 STEPS - STEP 1: Does the patient complete the activity by him/herself with no assistance (physical, verbal/nonverbal cueing, setup/clean-up)? Yes. 1. [id number] ADMISSION PERFORMANCE: Independent CODE: 06 PICKING UP OBJECT: PICKING UP OBJECT - STEP 1: Does the patient complete the activity by him/herself with no assistance (physical, verbal/nonverbal cueing, setup/clean-up)? Yes. 1. [id number] ADMISSION PERFORMANCE: Independent CODE: 06 DOES THE PATIENT USE A WHEELCHAIR/SCOOTER? Q1. DOES THE PATIENT USE A WHEELCHAIR/SCOOTER?: No CODE: 0 INDICATE THE TYPE OF WHEELCHAIR/SCOOTER USED: CODE: EXPR INDICATE THE TYPE OF WHEELCHAIR/SCOOTER USED: CODE: EXPR BLADDER AND BOWEL: CODE: EXPR CODE: EXPR SIGNATURE PANEL: The following modified sections: 1. [id number] Admission Performance, 1. [id number] Admission Performance, 1. [id number] Admission Performance, 1. [id number] Admission Performance, 1. [id number] Admission Performance, 1. [id number] Admission Performance, 1. [id number] Admission Performance, 1. [id number] Admission Performance , 1. [id number] Admission Performance, 1. [id number] Admission Performance, 1. [id number] Admission Performanc e, 1. [id number] Admission Performance, 1. [id number] Admission Performance, 1. [id number] Admission Performan ce, Q1. Does the patient use a wheelchair/scooter? were [electronically] signed by Giuliano Simental PTA on SatFeb 02 2019 08:47:27 GMT-0600 (Central Standard Time)
--- NOTE | 2019-02-02 12:53 | FAST ---
ENCOUNTER DATE AND TIME: 02/02/2019 08:00 (COMPUTER INSTRUCTOR) NAME HONG SPICER DATE OF : 1960 DATE OF ADMISSION: 01/23/2019 17:34 (COMPUTER INSTRUCTOR) PHONE: AGE: 58 N# [id number] GENDER: Female ENCOUNTER PHYSICIAN: Dr. Garry Hodge M.D. 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 EATING: Not assessed/no information CODE: - ORAL HYGIENE: ORAL HYGIENE - STEP 1: Does the patient complete the activity by him/herself with no assistance (physical, verbal/nonverbal cueing, setup/clean-up)? Yes. 1. [id number] ADMISSION PERFORMANCE: Independent CODE: 06 TOILETING HYGIENE: TOILETING HYGIENE - STEP 1: Does the patient complete the activity by him/herself with no assistance (physical, verbal/nonverbal cueing, setup/clean-up)? Yes. 1. [id number] ADMISSION PERFORMANCE: Independent CODE: 06 BATHING: SHOWER/BATHE SELF - STEP 1: Does the patient complete the activity by him/herself with no assistance (physical, verbal/nonverbal cueing, setup/clean-up)? Yes. 1. [id number] ADMISSION PERFORMANCE: Independent CODE: 06 DRESSING - UPPER BODY: DRESSING - UPPER BODY - STEP 1: Does the patient complete the activity by him/herself with no assistance (physical, verbal/nonverbal cueing, setup/clean-up)? Yes. 1. [id number] ADMISSION PERFORMANCE: Independent CODE: 06 DRESSING - LOWER BODY: DRESSING - LOWER BODY - STEP 1: Does the patient complete the activity by him/herself with no assistance (physical, verbal/nonverbal cueing, setup/clean-up)? Yes. 1. [id number] ADMISSION PERFORMANCE: Independent CODE: 06 PUTTING ON/TAKING OFF FOOTWEAR: FOOTWEAR - STEP 1: Does the patient complete the activity by him/herself with no assistance (physical, verbal/nonverbal cueing, setup/clean-up)? Yes. 1. [id number] ADMISSION PERFORMANCE: Independent CODE: 06 DOES THE PATIENT USE A WHEELCHAIR/SCOOTER? CODE: EXPR INDICATE THE TYPE OF WHEELCHAIR/SCOOTER USED: CODE: EXPR INDICATE THE TYPE OF WHEELCHAIR/SCOOTER USED: CODE: EXPR BLADDER AND BOWEL: CODE: EXPR CODE: EXPR SIGNATURE PANEL: The following modified sections: 1. [id number] Admission Performance, 1. [id number] Admission Performance, 1. [id number] Admission Performance, 1. [id number] Admission Performance, 1. CM5063u Admission Performance, 1. [id number] Admission Performance were [electronically] signed by ELYSSA Franklin on SatFeb 02 2019 12:53:10 GMT-0600 (Central Standard Time)
--- NOTE | 2019-02-02 18:10 | R.PN ---
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 SUBJECTIVE: Pt denied any depression. Pt denied any Shortness of Breath. Ambulated 1500' and up and down 15 steps with independence. VITAL SIGNS Temperature: 97 F SBP/DBP: 112/69 Pulse: 79 Resp: 16 MEDICATION ALLERGIES: No Known Drug Allergies (NKDA) ENVIRONMENTAL ALLERGIES: - Substance Allergies None Known - Other Allergies None Known NURSING: - Shower allowing shower - Bladder care per protocol - Skin care per protocol ACTIVITIES OOB only with supervision THERAPIES: - Orthotics/Prosthetics Orthotic Evaluation. Splinting/Casting. - Dietary and Nutrition Adequate Nutrition. Nutritional Education. Nutritional Supplements. PHYSICAL EXAM - Gen Alert and awake Lying in bed No apparent distress Oriented to: person, time, and place - Vital Signs Vital signs stable, afebrile - Skin Back surgical sites have good hemostasis. Normacephalic - Eyes No abnormalities - ENMT No abnormalities - Neck No abnormalities - CVS RRR - Chest No abnormalities - Abd Soft - GI Non distended Deferred - No abnormalities - Ext No significant edema - MSK Unremarkable - Neuro No focal deficits - Psych No abnormalities ASSESSMENT: Pt. is a 58 yo Right-handed white female.On 01/19/2019 she was admitted to [facility] with diagnosis l umbar radiculopathy.Her impairment category is Spinal Cord Dysfunction 04 - Other Non-traumatic Spin al Cord Dysfunction (04.130).Pre-morbidly, Pt. was independent/mod-I in Locomotion, Endurance, Self-C are, Balance, Transfers Control, Safety Awareness, Social Cognition, Ambulation, Communication, and S afety Awareness and Self-Care; and she had good Sphincter Control.Currently, she has deficits of [place] motion, Balance, Safety Awareness, Ambulation, and pain limiting function.Pt. is now referred to [facility] for acute in-patient rehabilitation in order to maximize patient's func tional independence in activities of daily living, strength, ROM, and mobility.- Rehab Goal Patient has realistic goal of being discharged at assistance level 6-Julia to reside at Home with Fam diana/Relatives. MDM/PLAN: - Physical Therapy Gait dysfunction - to improve, our physical therapists will perform initial evaluation of pt's statu s upon admission and devise an individualized program for Gait Training, and Wheel Chair mobility Need for home safety evaluation - to improve, our physical therapists will perform initial evaluatio n of pt's status upon admission and devise an individualized program for Home Evaluation Need in caregiver upon discharge - to improve, our physical therapists will perform initial evaluati on of pt's status upon admission and devise an individualized program for Caregiver Training New precaution - to improve, our physical therapists will perform initial evaluation of pt's status upon admission and devise an individualized program for Patient precaution education Edema - to improve, our physical therapists will perform initial evaluation of pt's status upon admi ssion and devise an individualized program for Elevation Training, and Lymphedema Therapy Poor balance - to improve, our physical therapists will perform initial evaluation of pt's status up on admission and devise an individualized program for Balance Training Weakness - to improve, our physical therapists will perform initial evaluation of pt's status upon a dmission and devise an individualized program for Aquatic Therapy, Neuromuscular Reeducation, and Str engthening Achieving independence - to improve, our physical therapists will perform initial evaluation of pt's status upon admission and devise an individualized program for Community Reintegration Activities - Occupational Therapy Need for direct support professional caregiver - to improve, our occupation therapists will perform initial evaluation of pt's status upon admission and devise an individualized program for Caregiver Training Weakness - to improve, our occupation therapists will perform initial evaluation of pt's status upon admission and devise an individualized program for Aquatic Therapy, Balance, Endurance, UE ROM, and UE strengthening - Other See attached MAR (Medication Administration Record) - Diet Type Continue Regular - Diet - Liquid Texture Continue Regular - Tube Feed Continue N/A - Bladder care per protocol - Skin care per protocol - Diet - Solid Texture Continue Regular - Shower allowing shower FUNCTIONAL STATUS: UPDATED AT WEEKLY TEAM CONFERENCE - Bladder Same accident frequency: 7-Ind - No accidents in the past 7 days - Bowel Same accident frequency: 7-Ind - No accidents in the past 7 days - Walking Same score based on distance walked: 1(<=50ft) - Wheelchair Same score based on distance traveled: 1(<=50ft) FUNCTIONAL STATUS: - Self-Care A. Eating Ind B. Grooming Ind C. Bathing sup D. Dressing - Upper Julia E. Dressing - Lower sup F. Toileting Maria Guadalupe - Sphincter Control G. Bladder control Julia H. Bowel control Julia - Transfers Control I. Bed/Chair/Wheelchair Julia J. Toilet Julia K. Tub/Shower sup - Locomotion L. Walk/Wheelchair (W) Ind M. Stairs Ind - Communication N. Comprehension (B) Ind O. Expression (B) Ind - Social Cognition P. Social Interaction Ind Q. Problem Solving Ind R. Memory Ind - Endurance Good - Balance Good - Safety Awareness Good QI SCORES: - Self-Care A. Eating 06-Independent B. Oral hygiene 05-Setup or clean-up assistance C. Toileting hygiene 05-Setup or clean-up assistance E. Shower/bathe self 88-Not attempted due to medical condition or safety concerns F. Upper body dressing 04-Supervision or touching assistance G. Lower body dressing 03-Partial/moderate assistance H. Putting on/taking off footwear 88-Not attempted due to medical condition or safety concerns - Mobility A. Roll left and right 06-Independent B. Sit to lying 04-Supervision or touching assistance C. Lying to sitting on side of bed 05-Setup or clean-up assistance D. Sit to stand 04-Supervision or touching assistance E. Chair/[id number] transfer 04-Supervision or touching assistance F. Toilet transfer 04-Supervision or touching assistance G. Car transfer 88-Not attempted due to medical condition or safety concerns I. Walk 10 feet 04-Supervision or touching assistance J. Walk 50 feet with two turns 88-Not attempted due to medical condition or safety concerns K. Walk 150 feet 88-Not attempted due to medical condition or safety concerns L. Walking 10 feet on uneven surfaces 88-Not attempted due to medical condition or safety concerns M. 1 step (curb) 88-Not attempted due to medical condition or safety concerns N. 4 steps 88-Not attempted due to medical condition or safety concerns O. 12 steps 88-Not attempted due to medical condition or safety concerns P. Picking up object 88-Not attempted due to medical condition or safety concerns R. Wheel 50 feet with two turns 88-Not attempted due to medical condition or safety concerns S. Wheel 150 feet 88-Not attempted due to medical condition or safety concerns - Bladder and Bowel Bladder continence 4-Always incontinent Bowel continence 3-Always incontinent - Endurance Fair - Balance Fair - Safety Awareness Fair CURRENT [facility]. DEFICITS: Endurance, Balance, Safety Awareness, Self-Care, and Mobility SIGNATURE PANEL: (DESKTOP PUBLISHING OPERATOR)
[2019-02-02] MEDS: HOME MED 1 EA UNK PO SCH (21:00)
[2019-02-02] MEDS: DULOXETINE 30 MG CAP PO SCH (21:06)
[2019-02-03] MEDS: OXYMORPHONE 10 MG PO PRN ×4 (00:32→18:07)
[2019-02-03] MEDS: BACLOFEN 10 MG TAB PO SCH ×3 (05:29→17:11)
[2019-02-03] MEDS: [UNRECOGNIZED DRUG - OTHER] PO SCH (06:30)
[2019-02-03] MEDS: CLOTRIMAZOLE 10 MG TROCHE PO SCH ×5 (08:00→21:00)
[2019-02-03] MEDS: PROMOD 30 ML DOSE PO SCH ×2 (08:00→20:00)
[2019-02-03] MEDS: MAGNESIUM OXIDE 400 MG TAB PO SCH ×2 (08:45→21:21)
[2019-02-03] MEDS: FUROSEMIDE 20 MG TABLET PO SCH (08:46)
[2019-02-03] MEDS: predniSONE 20 MG TAB PO SCH (08:46)
[2019-02-03] MEDS: GABAPENTIN 400 MG CAP PO SCH ×3 (08:46→21:21)
[2019-02-03] MEDS: PANTOPRAZOLE 40MG TABLET PO SCH ×2 (08:46→17:11)
[2019-02-03] MEDS: CALCIUM CARB 500MG/VIT D 200 IU TAB PO SCH (08:47)
[2019-02-03] MEDS: HYDROXYCHLOROQUINE 200MG TAB PO SCH ×2 (08:47→21:21)
[2019-02-03] MEDS: HEPARIN 5000 UNIT/ML 1 ML VIAL SQ SCH (08:48)
--- NOTE | 2019-02-03 10:58 | FAST ---
SHIFT START DATE/TIME: 02/02/2019 07:00 (METAL FRAMER) SHIFT END DATE/TIME: 02/02/2019 19:00 (METAL FRAMER) NAME HONG SPICER DATE OF : 1960 DATE OF ADMISSION: 01/23/2019 17:34 (METAL FRAMER) PHONE: AGE: 58 N# [id number] GENDER: Female ENCOUNTER PHYSICIAN: Dr. Garry Hodge M.D. 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 EATING: EATING - STEP 1: Does the patient complete the activity by him/herself with no assistance (physical, verbal/nonverbal cueing, setup/clean-up)? Yes. 1. [id number] ADMISSION PERFORMANCE: Independent CODE: 06 ORAL HYGIENE: ORAL HYGIENE - STEP 1: Does the patient complete the activity by him/herself with no assistance (physical, verbal/nonverbal cueing, setup/clean-up)? Yes. 1. [id number] ADMISSION PERFORMANCE: Independent CODE: 06 TOILETING HYGIENE: TOILETING HYGIENE - STEP 1: Does the patient complete the activity by him/herself with no assistance (physical, verbal/nonverbal cueing, setup/clean-up)? Yes. 1. [id number] ADMISSION PERFORMANCE: Independent CODE: 06 BATHING: Not assessed/no information CODE: - DRESSING - UPPER BODY: DRESSING - UPPER BODY - STEP 1: Does the patient complete the activity by him/herself with no assistance (physical, verbal/nonverbal cueing, setup/clean-up)? Yes. 1. [id number] ADMISSION PERFORMANCE: Independent CODE: 06 DRESSING - LOWER BODY: DRESSING - LOWER BODY - STEP 1: Does the patient complete the activity by him/herself with no assistance (physical, verbal/nonverbal cueing, setup/clean-up)? Yes. 1. [id number] ADMISSION PERFORMANCE: Independent CODE: 06 PUTTING ON/TAKING OFF FOOTWEAR: FOOTWEAR - STEP 1: Does the patient complete the activity by him/herself with no assistance (physical, verbal/nonverbal cueing, setup/clean-up)? Yes. 1. [id number] ADMISSION PERFORMANCE: Independent CODE: 06 ROLL LEFT AND RIGHT: ROLL LEFT AND RIGHT - STEP 1: Does the patient complete the activity by him/herself with no assistance (physical, verbal/nonverbal cueing, setup/clean-up)? Yes. 1. [id number] ADMISSION PERFORMANCE: Independent CODE: 06 SIT TO LYING: SIT TO LYING - STEP 1: Does the patient complete the activity by him/herself with no assistance (physical, verbal/nonverbal cueing, setup/clean-up)? Yes. 1. [id number] ADMISSION PERFORMANCE: Independent CODE: 06 LYING TO SITTING: LYING TO SITTING ON SIDE OF BED - STEP 1: Does the patient complete the activity by him/herself with no assistance (physical, verbal/nonverbal cueing, setup/clean-up)? Yes. 1. [id number] ADMISSION PERFORMANCE: Independent CODE: 06 SIT TO STAND: SIT TO STAND - STEP 1: Does the patient complete the activity by him/herself with no assistance (physical, verbal/nonverbal cueing, setup/clean-up)? Yes. 1. [id number] ADMISSION PERFORMANCE: Independent CODE: 06 TRANSFERS: BED, CHAIR: CHAIR/BAV-FP-ITJNE TRANSFER - STEP 1: Does the patient complete the activity by him/herself with no assistance (physical, verbal/nonverbal cueing, setup/clean-up)? Yes. 1. [id number] ADMISSION PERFORMANCE: Independent CODE: 06 TRANSFER TOILET: TOILET TRANSFER - STEP 1: Does the patient complete the activity by him/herself with no assistance (physical, verbal/nonverbal cueing, setup/clean-up)? Yes. 1. [id number] ADMISSION PERFORMANCE: Independent CODE: 06 TRANSFERS: CAR: Not assessed/no information CODE: - WALK 10 FEET: Not assessed/no information CODE: - 1 STEP (CURB): Not assessed/no information CODE: - PICKING UP OBJECT: Not assessed/no information CODE: - DOES THE PATIENT USE A WHEELCHAIR/SCOOTER? Q1. DOES THE PATIENT USE A WHEELCHAIR/SCOOTER?: Yes CODE: 1 WHEEL 50 FEET WITH TWO TURNS: WHEEL 50 FEET WITH TWO TURNS - STEP 1: Does the patient complete the activity by him/herself with no assistance (physical, verbal/nonverbal cueing, setup/clean-up)? Yes. 1. [id number] ADMISSION PERFORMANCE: Independent CODE: 06 INDICATE THE TYPE OF WHEELCHAIR/SCOOTER USED: CODE: EXPR WHEEL 150 FEET: WHEEL 150 FEET - STEP 1: Does the patient complete the activity by him/herself with no assistance (physical, verbal/nonverbal cueing, setup/clean-up)? Yes. 1. [id number] ADMISSION PERFORMANCE: Independent CODE: 06 INDICATE THE TYPE OF WHEELCHAIR/SCOOTER USED: SS1. INDICATE THE TYPE OF WHEELCHAIR/SCOOTER USED.: Manual CODE: 1 BLADDER AND BOWEL: H350. BLADDER CONTINENCE (3-DAY ASSESSMENT PERIOD): Always continent (no documented incontinence) CODE: 0 H400. BOWEL CONTINENCE (3-DAY ASSESSMENT PERIOD): Always continent CODE: 0 SIGNATURE PANEL: The following modified sections: 1. [id number] Admission Performance, 1. [id number] Admission Performance, 1. [id number] Admission Performance, 1. ZR2430b Admission Performance, 1. GG3975g Admission Performance, 1. NC8508y Admission Performance, 1. RR7922P Admission Performance, 1. [id number] Admission Performance , 1. VB2766H Admission Performance, 1. GY1521B Admission Performance, 1. CN4540S Admission Performanc e, 1. EC6171I Admission Performance, Q1. Does the patient use a wheelchair/scooter?, 1. [id number] Admis curry Performance, 1. [id number] Admission Performance, Code, SS1. Indicate the type of wheelchair/scoote r used., H350. Bladder Continence (3-day assessment period), H400. Bowel Continence (3-day assessment period) were [electronically] signed by Liam RamirezNGissel on SatFeb 03 2019 10:57:21 T-0600 (C entral Standard Time)
[2019-02-03] MEDS: DULOXETINE 30 MG CAP PO SCH (18:56)
[2019-02-03] MEDS: ALPRAZOLAM 0.5 MG TABLET PO PRN (18:57)
[2019-02-03] MEDS: POLYETHYL GLY 3350 17 GM/DOSE PO PRN (18:58)
[2019-02-03] MEDS: HOME MED 1 EA UNK PO SCH (21:00)
[2019-02-03] MEDS: APIXABAN 2.5 MG TABLET PO SCH (21:20)
[2019-02-04] MEDS: OXYMORPHONE 10 MG PO PRN ×4 (00:29→17:06)
[2019-02-04] MEDS: BACLOFEN 10 MG TAB PO SCH ×3 (00:30→16:19)
[2019-02-04] MEDS: [UNRECOGNIZED DRUG - OTHER] PO SCH (06:30)
[2019-02-04] MEDS: PANTOPRAZOLE 40MG TABLET PO SCH ×2 (07:03→16:19)
[2019-02-04] MEDS: APIXABAN 2.5 MG TABLET PO SCH ×2 (07:04→20:22)
[2019-02-04] MEDS: MAGNESIUM OXIDE 400 MG TAB PO SCH ×2 (07:04→20:21)
[2019-02-04] MEDS: GABAPENTIN 400 MG CAP PO SCH ×3 (07:04→20:22)
[2019-02-04] MEDS: FUROSEMIDE 20 MG TABLET PO SCH (07:04)
[2019-02-04] MEDS: HYDROXYCHLOROQUINE 200MG TAB PO SCH ×2 (07:04→20:21)
[2019-02-04] MEDS: CLOTRIMAZOLE 10 MG TROCHE PO SCH ×5 (07:06→20:23)
[2019-02-04] MEDS: CALCIUM CARB 500MG/VIT D 200 IU TAB PO SCH (07:06)
[2019-02-04] MEDS: PROMOD 30 ML DOSE PO SCH ×2 (07:07→20:00)
[2019-02-04] MEDS: ALPRAZOLAM 0.5 MG TABLET PO PRN ×2 (07:17→20:23)
--- NOTE | 2019-02-04 08:52 | FAST ---
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 Garry Hodge M.D. 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 ROLL LEFT AND RIGHT: ROLL LEFT AND RIGHT - STEP 1: Does the patient complete the activity by him/herself with no assistance (physical, verbal/nonverbal cueing, setup/clean-up)? Yes. 1. [id number] ADMISSION PERFORMANCE: Independent CODE: 06 SIT TO LYING: SIT TO LYING - STEP 1: Does the patient complete the activity by him/herself with no assistance (physical, verbal/nonverbal cueing, setup/clean-up)? Yes. 1. [id number] ADMISSION PERFORMANCE: Independent CODE: 06 LYING TO SITTING: LYING TO SITTING ON SIDE OF BED - STEP 1: Does the patient complete the activity by him/herself with no assistance (physical, verbal/nonverbal cueing, setup/clean-up)? Yes. 1. [id number] ADMISSION PERFORMANCE: Independent CODE: 06 SIT TO STAND: SIT TO STAND - STEP 1: Does the patient complete the activity by him/herself with no assistance (physical, verbal/nonverbal cueing, setup/clean-up)? Yes. 1. [id number] ADMISSION PERFORMANCE: Independent CODE: 06 TRANSFERS: BED, CHAIR: CHAIR/[id number] TRANSFER - STEP 1: Does the patient complete the activity by him/herself with no assistance (physical, verbal/nonverbal cueing, setup/clean-up)? Yes. 1. [id number] ADMISSION PERFORMANCE: Independent CODE: 06 TRANSFER TOILET: TOILET TRANSFER - STEP 1: Does the patient complete the activity by him/herself with no assistance (physical, verbal/nonverbal cueing, setup/clean-up)? Yes. 1. [id number] ADMISSION PERFORMANCE: Independent CODE: 06 TRANSFERS: CAR: CAR TRANSFER - STEP 1: Does the patient complete the activity by him/herself with no assistance (physical, verbal/nonverbal cueing, setup/clean-up)? Yes. 1. [id number] ADMISSION PERFORMANCE: Independent CODE: 06 WALK 10 FEET: WALK 10 FEET - STEP 1: Does the patient complete the activity by him/herself with no assistance (physical, verbal/nonverbal cueing, setup/clean-up)? Yes. 1. [id number] ADMISSION PERFORMANCE: Independent CODE: 06 WALK 50 FEET: WALK 50 FEET - STEP 1: Does the patient complete the activity by him/herself with no assistance (physical, verbal/nonverbal cueing, setup/clean-up)? Yes. 1. [id number] ADMISSION PERFORMANCE: Independent CODE: 06 WALK 150 FEET: WALK 150 FEET - STEP 1: Does the patient complete the activity by him/herself with no assistance (physical, verbal/nonverbal cueing, setup/clean-up)? Yes. 1. [id number] ADMISSION PERFORMANCE: Independent CODE: 06 WALK 10 FEET UNEVEN: WALKING 10 FEET ON UNEVEN SURFACES - STEP 1: Does the patient complete the activity by him/herself with no assistance (physical, verbal/nonverbal cueing, setup/clean-up)? Yes. 1. [id number] ADMISSION PERFORMANCE: Independent CODE: 06 1 STEP (CURB): 1 STEP CURB - STEP 1: Does the patient complete the activity by him/herself with no assistance (physical, verbal/nonverbal cueing, setup/clean-up)? Yes. 1. [id number] ADMISSION PERFORMANCE: Independent CODE: 06 4 STEPS: 4 STEPS - STEP 1: Does the patient complete the activity by him/herself with no assistance (physical, verbal/nonverbal cueing, setup/clean-up)? Yes. 1. [id number] ADMISSION PERFORMANCE: Independent CODE: 06 12 STEPS: 12 STEPS - STEP 1: Does the patient complete the activity by him/herself with no assistance (physical, verbal/nonverbal cueing, setup/clean-up)? Yes. 1. [id number] ADMISSION PERFORMANCE: Independent CODE: 06 PICKING UP OBJECT: PICKING UP OBJECT - STEP 1: Does the patient complete the activity by him/herself with no assistance (physical, verbal/nonverbal cueing, setup/clean-up)? Yes. 1. [id number] ADMISSION PERFORMANCE: Independent CODE: 06 DOES THE PATIENT USE A WHEELCHAIR/SCOOTER? Q1. DOES THE PATIENT USE A WHEELCHAIR/SCOOTER?: No CODE: 0 INDICATE THE TYPE OF WHEELCHAIR/SCOOTER USED: CODE: EXPR INDICATE THE TYPE OF WHEELCHAIR/SCOOTER USED: CODE: EXPR BLADDER AND BOWEL: CODE: EXPR CODE: EXPR SIGNATURE PANEL: The following modified sections: 1. [id number] Admission Performance, 1. [id number] Admission Performance, 1. [id number] Admission Performance, 1. [id number] Admission Performance, 1. [id number] Admission Performance, 1. [id number] Admission Performance, 1. [id number] Admission Performance, 1. RR3087K Admission Performance , 1. [id number] Admission Performance, 1. [id number] Admission Performance, 1. [id number] Admission Performanc e, 1. [id number] Admission Performance, 1. [id number] Admission Performance, 1. [id number] Admission Performan ce, 1. [id number] Admission Performance, Q1. Does the patient use a wheelchair/scooter? were [electronic ally] signed by Magdalena Harry PTA on SatFeb 04 2019 08:51:14 GMT-0600 (Central Standard Time)
[2019-02-04] MEDS: ACETAMINOPHEN 500 MG TAB PO PRN (10:48)
[2019-02-04] MEDS: PROMETHAZINE 25 MG TABLET PO PRN (13:39)
--- NOTE | 2019-02-04 16:23 | FAST ---
ENCOUNTER DATE AND TIME: 02/04/2019 08:00 (ASSISTANT OPERATIONS MANAGER) NAME HONG SPICER DATE OF : 1960 DATE OF ADMISSION: 01/23/2019 17:34 (ASSISTANT OPERATIONS MANAGER) PHONE: AGE: 58 N# [id number] GENDER: Female ENCOUNTER PHYSICIAN: Dr. Garry Hodge M.D. 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 EATING: Not assessed/no information CODE: - ORAL HYGIENE: ORAL HYGIENE - STEP 1: Does the patient complete the activity by him/herself with no assistance (physical, verbal/nonverbal cueing, setup/clean-up)? Yes. 1. [id number] ADMISSION PERFORMANCE: Independent CODE: 06 TOILETING HYGIENE: Not assessed/no information CODE: - BATHING: SHOWER/BATHE SELF - STEP 1: Does the patient complete the activity by him/herself with no assistance (physical, verbal/nonverbal cueing, setup/clean-up)? Yes. 1. [id number] ADMISSION PERFORMANCE: Independent CODE: 06 DRESSING - UPPER BODY: DRESSING - UPPER BODY - STEP 1: Does the patient complete the activity by him/herself with no assistance (physical, verbal/nonverbal cueing, setup/clean-up)? Yes. 1. ADMISSION PERFORMANCE: Independent CODE: 06 DRESSING - LOWER BODY: DRESSING - LOWER BODY - STEP 1: Does the patient complete the activity by him/herself with no assistance (physical, verbal/nonverbal cueing, setup/clean-up)? Yes. 1. [id number] ADMISSION PERFORMANCE: Independent CODE: 06 PUTTING ON/TAKING OFF FOOTWEAR: FOOTWEAR - STEP 1: Does the patient complete the activity by him/herself with no assistance (physical, verbal/nonverbal cueing, setup/clean-up)? Yes. 1. [id number] ADMISSION PERFORMANCE: Independent CODE: 06 DOES THE PATIENT USE A WHEELCHAIR/SCOOTER? CODE: EXPR INDICATE THE TYPE OF WHEELCHAIR/SCOOTER USED: CODE: EXPR INDICATE THE TYPE OF WHEELCHAIR/SCOOTER USED: CODE: EXPR BLADDER AND BOWEL: CODE: EXPR CODE: EXPR SIGNATURE PANEL: The following modified sections: 1. [id number] Admission Performance, 1. IX6120e Admission Performance, 1. MB4539k Admission Performance, 1. KN3955b Admission Performance, 1. PQ5411s Admission Performance were [electronically] signed by ELYSSA Franklin on SatFeb 04 2019 16:22:05 GMT-0600 (Central Standard Time)
--- NOTE | 2019-02-04 16:50 | R.PN ---
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 SUBJECTIVE: Pt denied any depression. Pt denied any Shortness of Breath. Ambulated 3000' and up and down 15 steps with independence. VITAL SIGNS Temperature: 97 F SBP/DBP: 123/69 Pulse: 89 Resp: 16 MEDICATION ALLERGIES: No Known Drug Allergies (NKDA) ENVIRONMENTAL ALLERGIES: - Substance Allergies None Known - Other Allergies None Known NURSING: - Shower allowing shower - Bladder care per protocol - Skin care per protocol ACTIVITIES OOB only with supervision THERAPIES: - Orthotics/Prosthetics Orthotic Evaluation. Splinting/Casting. - Dietary and Nutrition Adequate Nutrition. Nutritional Education. Nutritional Supplements. PHYSICAL EXAM - Gen Alert and awake Lying in bed No apparent distress Oriented to: person, time, and place - Vital Signs Vital signs stable, afebrile - Skin Back surgical sites have good hemostasis. Normacephalic - Eyes No abnormalities - ENMT No abnormalities - Neck No abnormalities - CVS RRR - Chest No abnormalities - Abd Soft - GI Non distended Deferred - No abnormalities - Ext No significant edema - MSK Unremarkable - Neuro No focal deficits - Psych No abnormalities ASSESSMENT: Pt. is a 58 yo Right-handed white female.On 01/19/2019 she was admitted to [facility] with diagnosis l umbar radiculopathy.Her impairment category is Spinal Cord Dysfunction 04 - Other Non-traumatic Spin al Cord Dysfunction (04.130).Pre-morbidly, Pt. was independent/mod-I in Locomotion, Endurance, Self-C are, Balance, Transfers Control, Safety Awareness, Social Cognition, Ambulation, Communication, and S afety Awareness and Self-Care; and she had good Sphincter Control.Currently, she has deficits of [place] motion, Balance, Safety Awareness, Ambulation, and pain limiting function.Pt. is now referred to [facility] for acute in-patient rehabilitation in order to maximize patient's func tional independence in activities of daily living, strength, ROM, and mobility.- Rehab Goal Patient has realistic goal of being discharged at assistance level 6-Julia to reside at Home with Fam diana/Relatives. MDM/PLAN: - Physical Therapy Gait dysfunction - to improve, our physical therapists will perform initial evaluation of pt's statu s upon admission and devise an individualized program for Gait Training, and Wheel Chair mobility Need for home safety evaluation - to improve, our physical therapists will perform initial evaluatio n of pt's status upon admission and devise an individualized program for Home Evaluation Need in caregiver upon discharge - to improve, our physical therapists will perform initial evaluati on of pt's status upon admission and devise an individualized program for Caregiver Training New precaution - to improve, our physical therapists will perform initial evaluation of pt's status upon admission and devise an individualized program for Patient precaution education Edema - to improve, our physical therapists will perform initial evaluation of pt's status upon admi ssion and devise an individualized program for Elevation Training, and Lymphedema Therapy Poor balance - to improve, our physical therapists will perform initial evaluation of pt's status up on admission and devise an individualized program for Balance Training Weakness - to improve, our physical therapists will perform initial evaluation of pt's status upon a dmission and devise an individualized program for Aquatic Therapy, Neuromuscular Reeducation, and Str engthening Achieving independence - to improve, our physical therapists will perform initial evaluation of pt's status upon admission and devise an individualized program for Community Reintegration Activities - Occupational Therapy Need for overnight caregiver - to improve, our occupation therapists will perform initial evaluation of pt's status upon admission and devise an individualized program for Caregiver Training Weakness - to improve, our occupation therapists will perform initial evaluation of pt's status upon admission and devise an individualized program for Aquatic Therapy, Balance, Endurance, UE ROM, and UE strengthening - Other See attached MAR (Medication Administration Record) - Diet Type Continue Regular - Diet - Liquid Texture Continue Regular - Tube Feed Continue N/A - Bladder care per protocol - Skin care per protocol - Diet - Solid Texture Continue Regular - Shower allowing shower FUNCTIONAL STATUS: UPDATED AT WEEKLY TEAM CONFERENCE - Bladder Same accident frequency: 7-Ind - No accidents in the past 7 days - Bowel Same accident frequency: 7-Ind - No accidents in the past 7 days - Walking Same score based on distance walked: 1(<=50ft) - Wheelchair Same score based on distance traveled: 1(<=50ft) FUNCTIONAL STATUS: - Self-Care A. Eating Ind B. Grooming Ind C. Bathing sup D. Dressing - Upper Julia E. Dressing - Lower sup F. Toileting Maria Guadalupe - Sphincter Control G. Bladder control Julia H. Bowel control Julia - Transfers Control I. Bed/Chair/Wheelchair Julia J. Toilet Julia K. Tub/Shower sup - Locomotion L. Walk/Wheelchair (W) Ind M. Stairs Ind - Communication N. Comprehension (B) Ind O. Expression (B) Ind - Social Cognition P. Social Interaction Ind Q. Problem Solving Ind R. Memory Ind - Endurance Good - Balance Good - Safety Awareness Good QI SCORES: - Self-Care A. Eating 06-Independent B. Oral hygiene 05-Setup or clean-up assistance C. Toileting hygiene 05-Setup or clean-up assistance E. Shower/bathe self 88-Not attempted due to medical condition or safety concerns F. Upper body dressing 04-Supervision or touching assistance G. Lower body dressing 03-Partial/moderate assistance H. Putting on/taking off footwear 88-Not attempted due to medical condition or safety concerns - Mobility A. Roll left and right 06-Independent B. Sit to lying 04-Supervision or touching assistance C. Lying to sitting on side of bed 05-Setup or clean-up assistance D. Sit to stand 04-Supervision or touching assistance E. Chair/ymn-hb-nndms transfer 04-Supervision or touching assistance F. Toilet transfer 04-Supervision or touching assistance G. Car transfer 88-Not attempted due to medical condition or safety concerns I. Walk 10 feet 04-Supervision or touching assistance J. Walk 50 feet with two turns 88-Not attempted due to medical condition or safety concerns K. Walk 150 feet 88-Not attempted due to medical condition or safety concerns L. Walking 10 feet on uneven surfaces 88-Not attempted due to medical condition or safety concerns M. 1 step (curb) 88-Not attempted due to medical condition or safety concerns N. 4 steps 88-Not attempted due to medical condition or safety concerns O. 12 steps 88-Not attempted due to medical condition or safety concerns P. Picking up object 88-Not attempted due to medical condition or safety concerns R. Wheel 50 feet with two turns 88-Not attempted due to medical condition or safety concerns S. Wheel 150 feet 88-Not attempted due to medical condition or safety concerns - Bladder and Bowel Bladder continence 4-Always incontinent Bowel continence 3-Always incontinent - Endurance Fair - Balance Fair - Safety Awareness Fair [facility]RENT [facility]. DEFICITS: Endurance, Balance, Safety Awareness, Self-Care, and Mobility SIGNATURE PANEL: (DRAWING IN MACHINE TENDER HELPER)
[2019-02-04] MEDS: DULOXETINE 30 MG CAP PO SCH (20:21)
[2019-02-04] MEDS: HOME MED 1 EA UNK PO SCH (20:29)
--- NOTE | 2019-02-04 21:58 | R.PN ---
ENCOUNTER DATE AND TIME: 02/04/2019 21:53 (INCOMING FREIGHT CLERK) NAME HONG SPICER DATE OF : 1960 DATE OF ADMISSION: 01/23/2019 17:34 (INCOMING FREIGHT CLERK) lumbar radiculopathyCHIEF COMPLAINT: Lumbar radiculopathy s/p surgical decompression. SUBJECTIVE: Pt denied any depression. Pt denied any Shortness of Breath. Ambulated 2000' and up and down 15 steps with independence. VITAL SIGNS Temperature: 97.2 F SBP/DBP: 125/72 Pulse: 83 Resp: 15 MEDICATION ALLERGIES: No Known Drug Allergies (NKDA) ENVIRONMENTAL ALLERGIES: - Substance Allergies None Known - Other Allergies None Known NURSING: - Shower allowing shower - Bladder care per protocol - Skin care per protocol ACTIVITIES OOB only with supervision THERAPIES: - Orthotics/Prosthetics Orthotic Evaluation. Splinting/Casting. - Dietary and Nutrition Adequate Nutrition. Nutritional Education. Nutritional Supplements. PHYSICAL EXAM - Gen Alert and awake Lying in bed No apparent distress Oriented to: person, time, and place - Vital Signs Vital signs stable, afebrile - Skin Back surgical sites have good hemostasis. Normacephalic - Eyes No abnormalities - ENMT No abnormalities - Neck No abnormalities - CVS RRR - Chest No abnormalities - Abd Soft - GI Non distended Deferred - No abnormalities - Ext No significant edema - MSK Unremarkable - Neuro No focal deficits - Psych No abnormalities ASSESSMENT: Pt. is a 58 yo Right-handed white female.On 01/19/2019 she was admitted to [facility] with diagnosis l umbar radiculopathy.Her impairment category is Spinal Cord Dysfunction 04 - Other Non-traumatic Spin al Cord Dysfunction (04.130).Pre-morbidly, Pt. was independent/mod-I in Locomotion, Endurance, Self-C are, Balance, Transfers Control, Safety Awareness, Social Cognition, Ambulation, Communication, and S afety Awareness and Self-Care; and she had good Sphincter Control.Currently, she has deficits of [place] motion, Balance, Safety Awareness, Ambulation, and pain limiting function.Pt. is now referred to [facility] for acute in-patient rehabilitation in order to maximize patient's func tional independence in activities of daily living, strength, ROM, and mobility.- Rehab Goal Patient has realistic goal of being discharged at assistance level 6-Julia to reside at Home with Fam diana/Relatives. MDM/PLAN: - Physical Therapy Gait dysfunction - to improve, our physical therapists will perform initial evaluation of pt's statu s upon admission and devise an individualized program for Gait Training, and Wheel Chair mobility Need for home safety evaluation - to improve, our physical therapists will perform initial evaluatio n of pt's status upon admission and devise an individualized program for Home Evaluation Need in caregiver upon discharge - to improve, our physical therapists will perform initial evaluati on of pt's status upon admission and devise an individualized program for Caregiver Training New precaution - to improve, our physical therapists will perform initial evaluation of pt's status upon admission and devise an individualized program for Patient precaution education Edema - to improve, our physical therapists will perform initial evaluation of pt's status upon admi ssion and devise an individualized program for Elevation Training, and Lymphedema Therapy Poor balance - to improve, our physical therapists will perform initial evaluation of pt's status up on admission and devise an individualized program for Balance Training Weakness - to improve, our physical therapists will perform initial evaluation of pt's status upon a dmission and devise an individualized program for Aquatic Therapy, Neuromuscular Reeducation, and Str engthening Achieving independence - to improve, our physical therapists will perform initial evaluation of pt's status upon admission and devise an individualized program for Community Reintegration Activities - Occupational Therapy Need for skin care consultant - to improve, our occupation therapists will perform initial evaluation of pt's status upon admission and devise an individualized program for Caregiver Training Weakness - to improve, our occupation therapists will perform initial evaluation of pt's status upon admission and devise an individualized program for Aquatic Therapy, Balance, Endurance, UE ROM, and UE strengthening - Other See attached MAR (Medication Administration Record) - Diet Type Continue Regular - Diet - Liquid Texture Continue Regular - Tube Feed Continue N/A - Bladder care per protocol - Skin care per protocol - Diet - Solid Texture Continue Regular - Shower allowing shower FUNCTIONAL STATUS: UPDATED AT WEEKLY TEAM CONFERENCE - Bladder Same accident frequency: 7-Ind - No accidents in the past 7 days - Bowel Same accident frequency: 7-Ind - No accidents in the past 7 days - Walking Same score based on distance walked: 1(<=50ft) - Wheelchair Same score based on distance traveled: 1(<=50ft) FUNCTIONAL STATUS: - Self-Care A. Eating Ind B. Grooming Ind C. Bathing sup D. Dressing - Upper Julia E. Dressing - Lower sup F. Toileting Maria Guadalupe - Sphincter Control G. Bladder control Julia H. Bowel control Julia - Transfers Control I. Bed/Chair/Wheelchair Julia J. Toilet Julia K. Tub/Shower sup - Locomotion L. Walk/Wheelchair (W) Ind M. Stairs Ind - Communication N. Comprehension (B) Ind O. Expression (B) Ind - Social Cognition P. Social Interaction Ind Q. Problem Solving Ind R. Memory Ind - Endurance Good - Balance Good - Safety Awareness Good QI SCORES: - Self-Care A. Eating 06-Independent B. Oral hygiene 05-Setup or clean-up assistance C. Toileting hygiene 05-Setup or clean-up assistance E. Shower/bathe self 88-Not attempted due to medical condition or safety concerns F. Upper body dressing 04-Supervision or touching assistance G. Lower body dressing 03-Partial/moderate assistance H. Putting on/taking off footwear 88-Not attempted due to medical condition or safety concerns - Mobility A. Roll left and right 06-Independent B. Sit to lying 04-Supervision or touching assistance C. Lying to sitting on side of bed 05-Setup or clean-up assistance D. Sit to stand 04-Supervision or touching assistance E. Chair/dep-zp-gknll transfer 04-Supervision or touching assistance F. Toilet transfer 04-Supervision or touching assistance G. Car transfer 88-Not attempted due to medical condition or safety concerns I. Walk 10 feet 04-Supervision or touching assistance J. Walk 50 feet with two turns 88-Not attempted due to medical condition or safety concerns K. Walk 150 feet 88-Not attempted due to medical condition or safety concerns L. Walking 10 feet on uneven surfaces 88-Not attempted due to medical condition or safety concerns M. 1 step (curb) 88-Not attempted due to medical condition or safety concerns N. 4 steps 88-Not attempted due to medical condition or safety concerns O. 12 steps 88-Not attempted due to medical condition or safety concerns P. Picking up object 88-Not attempted due to medical condition or safety concerns R. Wheel 50 feet with two turns 88-Not attempted due to medical condition or safety concerns S. Wheel 150 feet 88-Not attempted due to medical condition or safety concerns - Bladder and Bowel Bladder continence 4-Always incontinent Bowel continence 3-Always incontinent - Endurance Fair - Balance Fair - Safety Awareness Fair CURRENT [facility]. DEFICITS: Endurance, Balance, Safety Awareness, Self-Care, and Mobility SIGNATURE PANEL: (INCOMING FREIGHT CLERK)
[2019-02-05] MEDS: OXYMORPHONE 10 MG PO PRN ×3 (00:24→12:09)
[2019-02-05] MEDS: BACLOFEN 10 MG TAB PO SCH ×2 (00:25→07:08)
[2019-02-05] MEDS: ACETAMINOPHEN 500 MG TAB PO PRN (05:05)
[2019-02-05] MEDS: [UNRECOGNIZED DRUG - OTHER] PO SCH (06:30)
[2019-02-05 06:31] LABS: Absolute Lymphocytes (CBC) 2.1 K/uL (0.7-4.9); Basophils % 0.7 % (0-1.3); Hematocrit 34.2 % (36.0-45.0); Lymphocytes % 19.4 % (15.3-44.8); RBC Red Blood Cell Count 4.01 M/uL (3.86-4.86)
[2019-02-05 07:03] VITALS: BP 125/60; TEMP 97.1
[2019-02-05] MEDS: GABAPENTIN 400 MG CAP PO SCH ×2 (07:07→13:35)
[2019-02-05] MEDS: MAGNESIUM OXIDE 400 MG TAB PO SCH (07:07)
[2019-02-05] MEDS: HYDROXYCHLOROQUINE 200MG TAB PO SCH (07:08)
[2019-02-05] MEDS: PANTOPRAZOLE 40MG TABLET PO SCH (07:08)
[2019-02-05] MEDS: FUROSEMIDE 20 MG TABLET PO SCH (07:08)
[2019-02-05] MEDS: CLOTRIMAZOLE 10 MG TROCHE PO SCH ×3 (07:08→13:27)
[2019-02-05] MEDS: APIXABAN 2.5 MG TABLET PO SCH (07:08)
[2019-02-05] MEDS: ALPRAZOLAM 0.5 MG TABLET PO PRN (07:09)
[2019-02-05] MEDS: CALCIUM CARB 500MG/VIT D 200 IU TAB PO SCH (07:09)
[2019-02-05] MEDS: PROMOD 30 ML DOSE PO SCH (07:10)
[2019-02-05 07:32] LABS: Magnesium 2.2 mg/dL (1.8-2.4); Potassium 3.8 mmol/L (3.5-5.1); Prealbumin 29.3 mg/dL (20-40)
[2019-02-05] MEDS ORDERED: predniSONE 20 MG TAB PO SCH (08:00)
[2019-02-05] MEDS ORDERED: BACLOFEN 10 MG TAB PO ONE (14:00)
--- NOTE | 2019-02-05 20:56 | R.PN ---
ENCOUNTER DATE AND TIME: 02/05/2019 20:54 (MANAGER CLIENT SUPPORT) NAME HONG SPICER DATE OF : 1960 DATE OF ADMISSION: 01/23/2019 17:34 (MANAGER CLIENT SUPPORT) lumbar radiculopathyCHIEF COMPLAINT: Lumbar radiculopathy s/p surgical decompression. SUBJECTIVE: Pt denied any depression. Pt denied any Shortness of Breath. Ambulated 2000' and up and down 15 steps with independence. VITAL SIGNS Temperature: 97.9 F SBP/DBP: 122/77 Pulse: 79 Resp: 15 MEDICATION ALLERGIES: No Known Drug Allergies (NKDA) ENVIRONMENTAL ALLERGIES: - Substance Allergies None Known - Other Allergies None Known NURSING: - Shower allowing shower - Bladder care per protocol - Skin care per protocol ACTIVITIES OOB only with supervision THERAPIES: - Orthotics/Prosthetics Orthotic Evaluation. Splinting/Casting. - Dietary and Nutrition Adequate Nutrition. Nutritional Education. Nutritional Supplements. PHYSICAL EXAM - Gen Alert and awake Lying in bed No apparent distress Oriented to: person, time, and place - Vital Signs Vital signs stable, afebrile - Skin Back surgical sites have good hemostasis. Normacephalic - Eyes No abnormalities - ENMT No abnormalities - Neck No abnormalities - CVS RRR - Chest No abnormalities - Abd Soft - GI Non distended Deferred - No abnormalities - Ext No significant edema - MSK Unremarkable - Neuro No focal deficits - Psych No abnormalities ASSESSMENT: Pt. is a 58 yo Right-handed white female.On 01/19/2019 she was admitted to [facility] with diagnosis l umbar radiculopathy.Her impairment category is Spinal Cord Dysfunction 04 - Other Non-traumatic Spin al Cord Dysfunction (04.130).Pre-morbidly, Pt. was independent/mod-I in Locomotion, Endurance, Self-C are, Balance, Transfers Control, Safety Awareness, Social Cognition, Ambulation, Communication, and S afety Awareness and Self-Care; and she had good Sphincter Control.Currently, she has deficits of [place] motion, Balance, Safety Awareness, Ambulation, and pain limiting function.Pt. is now referred to [facility] for acute in-patient rehabilitation in order to maximize patient's func tional independence in activities of daily living, strength, ROM, and mobility.- Rehab Goal Patient has realistic goal of being discharged at assistance level 6-Julia to reside at Home with Fam diana/Relatives. MDM/PLAN: - Physical Therapy Gait dysfunction - to improve, our physical therapists will perform initial evaluation of pt's statu s upon admission and devise an individualized program for Gait Training, and Wheel Chair mobility Need for home safety evaluation - to improve, our physical therapists will perform initial evaluatio n of pt's status upon admission and devise an individualized program for Home Evaluation Need in caregiver upon discharge - to improve, our physical therapists will perform initial evaluati on of pt's status upon admission and devise an individualized program for Caregiver Training New precaution - to improve, our physical therapists will perform initial evaluation of pt's status upon admission and devise an individualized program for Patient precaution education Edema - to improve, our physical therapists will perform initial evaluation of pt's status upon admi ssion and devise an individualized program for Elevation Training, and Lymphedema Therapy Poor balance - to improve, our physical therapists will perform initial evaluation of pt's status up on admission and devise an individualized program for Balance Training Weakness - to improve, our physical therapists will perform initial evaluation of pt's status upon a dmission and devise an individualized program for Aquatic Therapy, Neuromuscular Reeducation, and Str engthening Achieving independence - to improve, our physical therapists will perform initial evaluation of pt's status upon admission and devise an individualized program for Community Reintegration Activities - Occupational Therapy Need for director of primary care - to improve, our occupation therapists will perform initial evaluation of pt's status upon admission and devise an individualized program for Caregiver Training Weakness - to improve, our occupation therapists will perform initial evaluation of pt's status upon admission and devise an individualized program for Aquatic Therapy, Balance, Endurance, UE ROM, and UE strengthening - Other See attached MAR (Medication Administration Record) - Diet Type Continue Regular - Diet - Liquid Texture Continue Regular - Tube Feed Continue N/A - Bladder care per protocol - Skin care per protocol - Diet - Solid Texture Continue Regular - Shower allowing shower FUNCTIONAL STATUS: UPDATED AT WEEKLY TEAM CONFERENCE - Bladder Same accident frequency: 7-Ind - No accidents in the past 7 days - Bowel Same accident frequency: 7-Ind - No accidents in the past 7 days - Walking Same score based on distance walked: 1(<=50ft) - Wheelchair Same score based on distance traveled: 1(<=50ft) FUNCTIONAL STATUS: - Self-Care A. Eating Ind B. Grooming Ind C. Bathing sup D. Dressing - Upper Julia E. Dressing - Lower sup F. Toileting Maria Guadalupe - Sphincter Control G. Bladder control Julia H. Bowel control Julia - Transfers Control I. Bed/Chair/Wheelchair Julia J. Toilet Julia K. Tub/Shower sup - Locomotion L. Walk/Wheelchair (W) Ind M. Stairs Ind - Communication N. Comprehension (B) Ind O. Expression (B) Ind - Social Cognition P. Social Interaction Ind Q. Problem Solving Ind R. Memory Ind - Endurance Good - Balance Good - Safety Awareness Good QI SCORES: - Self-Care A. Eating 06-Independent B. Oral hygiene 05-Setup or clean-up assistance C. Toileting hygiene 05-Setup or clean-up assistance E. Shower/bathe self 88-Not attempted due to medical condition or safety concerns F. Upper body dressing 04-Supervision or touching assistance G. Lower body dressing 03-Partial/moderate assistance H. Putting on/taking off footwear 88-Not attempted due to medical condition or safety concerns - Mobility A. Roll left and right 06-Independent B. Sit to lying 04-Supervision or touching assistance C. Lying to sitting on side of bed 05-Setup or clean-up assistance D. Sit to stand 04-Supervision or touching assistance E. Chair/[id number] transfer 04-Supervision or touching assistance F. Toilet transfer 04-Supervision or touching assistance G. Car transfer 88-Not attempted due to medical condition or safety concerns I. Walk 10 feet 04-Supervision or touching assistance J. Walk 50 feet with two turns 88-Not attempted due to medical condition or safety concerns K. Walk 150 feet 88-Not attempted due to medical condition or safety concerns L. Walking 10 feet on uneven surfaces 88-Not attempted due to medical condition or safety concerns M. 1 step (curb) 88-Not attempted due to medical condition or safety concerns N. 4 steps 88-Not attempted due to medical condition or safety concerns O. 12 steps 88-Not attempted due to medical condition or safety concerns P. Picking up object 88-Not attempted due to medical condition or safety concerns R. Wheel 50 feet with two turns 88-Not attempted due to medical condition or safety concerns S. Wheel 150 feet 88-Not attempted due to medical condition or safety concerns - Bladder and Bowel Bladder continence 4-Always incontinent Bowel continence 3-Always incontinent - Endurance Fair - Balance Fair - Safety Awareness Fair CURRENT [facility]. DEFICITS: Endurance, Balance, Safety Awareness, Self-Care, and Mobility SIGNATURE PANEL: (MANAGER CLIENT SUPPORT)
== END 2019-02-05 14:49 | disposition home or self-care (01) | DRG 552 ==
LOC: 5TH 17:34
PROVIDERS: ADMIT Psychiatry & Neurology Neurology with Special Qualifications in Child Neurology; ATTEND Psychiatry & Neurology Neurology with Special Qualifications in Child Neurology
DX: M54.16 Radiculopathy, lumbar region (principal); M43.26 Fusion of spine, lumbar region; M79.7 Fibromyalgia; M81.0 Age-related osteoporosis without current pathological fracture; M35.00 Sjogren syndrome, unspecified; L40.50 Arthropathic psoriasis, unspecified
CPT/HCPCS: 36415; 74018; 80048; 81001; 82040; 83735; 84134; 85025; 87086; 87088; 97110; 97112; 97116; 97161; 97530; J1644; J7509; J7512; Q0169